=== PATIENT | male | born 1935 | race Caucasian/White ===

== ENCOUNTER 2017-03-01 16:33 | Inpatient (IN) | payer OTHER, MEDICARE ==
[~2017-03-01] VITALS: Ht 175.3 cm; Wt 90.7 kg
--- NOTE | ~2017-03-01 | EKG ---
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 <ELECTRONICALLY SIGNED> By: Andrew Interiano MD, [facility] 03/03/17 0815 1727 1727 Andrew Interiano MD, [facility] /EPI
[~2017-03-01 16:33] MED LIST: ACETAMINOPHEN325 M1 PO; ADULT LOW DOSE81 MG PO; AMARYL4 MG PO; APAP650 PO; ASPIR 8181 MG PO; ASPIRIN EC325 M1; ASPIRIN325; ASPIRIN325 PO; ATORVASTATIN CA40 MG PO; AVAPRO300 MG PO; AVELOX 400 MG400 M1 PO; AZOR 10-40 MG1 EACH PO; BACTROBAN CREAM30 GM; DEMADEX20 MG PO; DIABETA PO; DOXAZOSIN MESYLA4 MG PO; GLUCOPHAGE1000 MG PO; GLUCOSAMINE HC500 MG PO; K-DUR 20 MEQ T20 MEQ PO; KLOR-CON 10 ER10 MEQ PO; LANTUS; LANTUS SUBQ; LASIX 40 MG TAB40 M1 PO; LOPRESSOR PO; LOPRESSOR50 PO; LOSARTAN POTAS100 MG PO; METOPROLOL TARTRATE PO; NORCO 5-325 TA1 EACH PO; NORVASC10 MG PO; OMEPRAZOLE20 M2 PO; PEPCID20 MG PO; PLAVIX 75 MG TA75 M1 PO; PLAVIX 75 MG TA75 MG PO; PRAVASTATIN SOD20 MG PO; PREDNISONE 10 M10 M1 PO; PREDNISONE 10 M10 MG PO; PROAIR HFA8.5 GM INH; SYMBICORT160 MCG/4. INH; TOPROL XL50 MG PO; VENTOLIN HFA 1818 GM INH; ZOFRAN ODT4 MG PO
[2017-03-01 16:34] VITALS: BP 118/48
[2017-03-01 17:10] LABS: ABSOLUTE NEUTROPHILS 4.3 thou/uL (1.4-8.2); BASOPHILS 0.8 % (0.0-2.0); HEMATOCRIT 26.7 % (42.0-52.0); HEMOGLOBIN 9.1 gm/dL (14.0-18.0); LYMPHOCYTES 35.6 % (24.0-44.0); MCH 31.7 pg (26.0-34.0); MCHC 34.1 g/dL (28.0-37.0); MONOCYTES 9.4 % (1.0-8.0); PLATELET COUNT 137 thou/uL (150-400); POLYS 51.2 % (36.0-66.0); RBC 2.87 mil/uL (4.50-6.00); RDW 14.2 % (10.5-14.5); WBC 8.5 thou/uL (4.0-11.0)
[2017-03-01 17:20] LABS: URINE BILIRUBIN NEGATIVE (Negative); URINE BLOOD NEGATIVE (Negative); URINE COLOR YELLOW; URINE GLUCOSE-RANDOM* NEGATIVE (Negative); URINE KETONES NEGATIVE (Negative); URINE LEUKOCYTES-REFLEX 1+ (Negative); URINE PROTEIN (DIPSTICK) NEGATIVE (Negative); URINE UROBILINOGEN 0.2 E.U./dl (0.2-1.0)
[2017-03-01 17:24] LABS: MANUAL DIFF NO
[2017-03-01 17:25] LABS: CALCIUM 9.3 mg/dL (8.5-10.1); CREATININE 2.1 mg/dL (0.7-1.3); POTASSIUM 5.7 mmol/L (3.5-5.1)
[2017-03-01 17:34] LABS: CASTS None Seen /LPF (None Seen); CRYSTALS None Seen /LPF (None Seen); SQUAMOUS 0-3 Few /LPF (0-3); URINE RBC 0-2 Rare /HPF (0-2); URINE WBC-REFLEX 0-5 Rare /HPF (0-5)
[2017-03-01 17:37] LABS: ALBUMIN 3.5 g/dL (3.4-5.0); TOTAL BILIRUBIN 0.2 mg/dL (<0.1-1.0); TOTAL PROTEIN 6.9 g/dL (6.4-8.2)
[2017-03-01 17:56] LABS: PHOSPHORUS 4.6 mg/dL (2.5-4.9); TROPONIN-I < 0.04 ng/mL (<0.04-0.07)
[2017-03-01] MEDS ORDERED: DEMADEX20 MG PO (18:09)
[2017-03-01] MEDS ORDERED: CARDURA4 MG PO (18:09)
[2017-03-01] MEDS ORDERED: PLAVIX 75 MG TA75 MG PO (18:10)
[2017-03-01] MEDS ORDERED: LEVOTHYROXIN0.075 MG PO (18:11)
[2017-03-01] MEDS ORDERED: ATORVASTATIN CA40 MG PO (18:12)
[2017-03-01] MEDS ORDERED: METOPROLOL SUCC50 MG PO (18:12)
[2017-03-01] MEDS ORDERED: VITAMIN B COMP1 EACH PO (18:13)
[2017-03-01] MEDS ORDERED: PROTONIX40 M4 PO (18:13)
[2017-03-01] MEDS ORDERED: ASPIR 8181 MG PO (18:13)
[2017-03-01] MEDS ORDERED: LEVEMIR100 UNIT/1 (18:15)
[2017-03-01] MEDS ORDERED: SYMBICORT160 MCG/4. INH (18:15)
[2017-03-01] MEDS ORDERED: TYLENOL ARTHRI650 MG PO (18:16)
[2017-03-01 18:41] VITALS: BP 128/49; BP 145/45
[2017-03-01 19:16] LABS: TSH 33.637 uIU/mL (0.358-3.740)
[2017-03-01 20:22] LABS: FOLIC ACID 31.5 ng/mL (8.6-58.9)
[2017-03-02] VITALS: BP 120/58
[2017-03-02 04:00] VITALS: BP 135/47
[2017-03-02 05:10] LABS: GLYCOHEMOGLOBIN (HGB A1C) 7.3 % (4.8-5.6)
[2017-03-02 10:22] LABS: HEMATOCRIT 26.3 % (42.0-52.0); HEMOGLOBIN 8.8 gm/dL (14.0-18.0); MANUAL DIFF YES; MCH 31.9 pg (26.0-34.0); MCHC 33.5 g/dL (28.0-37.0); MCV 95.3 fL (80.0-100.0); PLATELET COUNT 126 thou/uL (150-400); RBC 2.76 mil/uL (4.50-6.00); RDW 14.4 % (10.5-14.5); WBC 6.5 thou/uL (4.0-11.0)
[2017-03-02 10:42] LABS: CALCIUM 8.8 mg/dL (8.5-10.1); CREATININE 2.2 mg/dL (0.7-1.3)
[2017-03-02 10:43] LABS: PLATELET ESTIMATE NORMAL; TOTAL CELL COUNT 100
[2017-03-02 10:44] LABS: POTASSIUM 6.3 mmol/L (3.5-5.1)
[2017-03-02 15:00] LABS: CALCIUM 8.6 mg/dL (8.5-10.1); CREATININE 2.3 mg/dL (0.7-1.3)
[2017-03-02 15:03] LABS: POTASSIUM 6.2 mmol/L (3.5-5.1)
[2017-03-02 19:40] VITALS: BP 135/46
[2017-03-03 03:14] LABS: GLYCOHEMOGLOBIN (HGB A1C) 7.5 % (4.8-5.6)
[2017-03-03 03:45] VITALS: BP 130/45
[2017-03-03 06:36] LABS: HEMATOCRIT 26.3 % (42.0-52.0); HEMOGLOBIN 8.9 gm/dL (14.0-18.0); MCH 32.1 pg (26.0-34.0); MCV 94.2 fL (80.0-100.0); RBC 2.79 mil/uL (4.50-6.00); RDW 14.2 % (10.5-14.5); WBC 5.9 thou/uL (4.0-11.0)
[2017-03-03 06:48] LABS: ALBUMIN 3.2 g/dL (3.4-5.0); CALCIUM 8.9 mg/dL (8.5-10.1); CREATININE 1.9 mg/dL (0.7-1.3)
[2017-03-03 06:52] LABS: POTASSIUM 6.9 mmol/L (3.5-5.1)
[2017-03-03 07:47] VITALS: BP 131/61
[2017-03-03 16:38] VITALS: BP 133/46
[2017-03-03 19:54] VITALS: BP 132/46
[2017-03-04 02:24] LABS: ABG SAMPLE TYPE ARTERIAL; BE(vivo) -1.4 mmol/L (-2 to +3); HCO3 22.6 mmol/L (22.0-26.0); LACTATE 1.27 mmol/L (0.5-2.0); O2(CT) 12.3 mL/dL (15.0-23.0); O2Hb 92.2 % (92.0-98.0); PCO2 35.3 mmHg (35.0-45.0); PO2 66.5 mmHg (80.0-100.0); pH 7.425 (7.360-7.450); sO2 93.8 % (92.0-98.0); tCO2 23.7 mmol/L (24.0-30.0)
[2017-03-04 02:25] LABS: STICK SITE R.RADIAL
[2017-03-04 02:32] LABS: HEMATOCRIT 25.8 % (42.0-52.0); HEMOGLOBIN 8.8 gm/dL (14.0-18.0); MCH 31.7 pg (26.0-34.0); MCV 93.1 fL (80.0-100.0); RBC 2.77 mil/uL (4.50-6.00); RDW 13.9 % (10.5-14.5); WBC 8.2 thou/uL (4.0-11.0)
[2017-03-04 02:47] LABS: ALBUMIN 3.1 g/dL (3.4-5.0); CALCIUM 8.6 mg/dL (8.5-10.1); CREATININE 1.8 mg/dL (0.7-1.3); PHOSPHORUS 4.2 mg/dL (2.5-4.9)
[2017-03-04 07:18] VITALS: BP 134/84
[2017-03-04 10:25] VITALS: BP 134/84
== END 2017-03-04 13:30 | disposition home or self-care (01) | DRG 682 ==
LOC: ER 16:33 → 4E 17:43 → EROBS 17:43 → 4E 18:43
PROVIDERS: Emergency Medicine; Family Medicine; Internal Medicine Endocrinology, Diabetes & Metabolism; Internal Medicine Nephrology; Nurse Practitioner; Physician Assistant
DX: N17.9 Acute kidney failure, unspecified (principal); G93.41 Metabolic encephalopathy; I13.0 Hypertensive heart and chronic kidney disease with heart failure and stage 1 through stage 4 chronic kidney disease, or unspecified chronic kidney disease; E87.5 Hyperkalemia; E11.649 Type 2 diabetes mellitus with hypoglycemia without coma; I25.10 Atherosclerotic heart disease of native coronary artery without angina pectoris; E78.5 Hyperlipidemia, unspecified; E11.22 Type 2 diabetes mellitus with diabetic chronic kidney disease; N18.9 Chronic kidney disease, unspecified; I50.9 Heart failure, unspecified; I65.29 Occlusion and stenosis of unspecified carotid artery; J44.9 Chronic obstructive pulmonary disease, unspecified; R00.1 Bradycardia, unspecified; E78.00 Pure hypercholesterolemia, unspecified; E11.65 Type 2 diabetes mellitus with hyperglycemia; R26.9 Unspecified abnormalities of gait and mobility; Z88.0 Allergy status to penicillin; Z95.1 Presence of aortocoronary bypass graft; Z79.899 Other long term (current) drug therapy; Z79.82 Long term (current) use of aspirin; Z82.49 Family history of ischemic heart disease and other diseases of the circulatory system; Z83.3 Family history of diabetes mellitus; Z87.891 Personal history of nicotine dependence; Z99.81 Dependence on supplemental oxygen
CPT/HCPCS: 10183

== ENCOUNTER → 2017-06-02 | Outpatient (CLI) | payer OTHER, MEDICARE ==
[~2017-06-02] MED LIST changes: +CARDURA4 MG PO; +LEVEMIR100 UNIT/1; +LEVOTHYROXIN0.075 MG PO; +METOPROLOL SUCC50 MG PO; +PROTONIX40 M4 PO; +TYLENOL ARTHRI650 MG PO; +VITAMIN B COMP1 EACH PO
== END ==
LOC: RAD 14:04
DX: J44.9 Chronic obstructive pulmonary disease, unspecified (principal)

== ENCOUNTER → 2017-11-03 | Outpatient (CLI) | payer OTHER, MEDICARE | LOC: HYPER 06:57 | DX: E11.622 Type 2 diabetes mellitus with other skin ulcer (principal); I87.2 Venous insufficiency (chronic) (peripheral); L97.811 Non-pressure chronic ulcer of other part of right lower leg limited to breakdown of skin; I25.810 Atherosclerosis of coronary artery bypass graft(s) without angina pectoris; R60.0 Localized edema; E11.22 Type 2 diabetes mellitus with diabetic chronic kidney disease; I12.9 Hypertensive chronic kidney disease with stage 1 through stage 4 chronic kidney disease, or unspecified chronic kidney disease; N18.9 Chronic kidney disease, unspecified; K21.9 Gastro-esophageal reflux disease without esophagitis; Z86.73 Personal history of transient ischemic attack (TIA), and cerebral infarction without residual deficits; Z95.1 Presence of aortocoronary bypass graft; Z87.891 Personal history of nicotine dependence ==

== ENCOUNTER → 2017-11-17 | Outpatient (CLI) | payer OTHER, MEDICARE | LOC: HYPER 06:56 | DX: E11.622 Type 2 diabetes mellitus with other skin ulcer (principal); L97.811 Non-pressure chronic ulcer of other part of right lower leg limited to breakdown of skin; R60.0 Localized edema; Z79.4 Long term (current) use of insulin; I25.10 Atherosclerotic heart disease of native coronary artery without angina pectoris; K21.9 Gastro-esophageal reflux disease without esophagitis; E11.22 Type 2 diabetes mellitus with diabetic chronic kidney disease; I12.9 Hypertensive chronic kidney disease with stage 1 through stage 4 chronic kidney disease, or unspecified chronic kidney disease; N18.9 Chronic kidney disease, unspecified; Z86.73 Personal history of transient ischemic attack (TIA), and cerebral infarction without residual deficits; Z95.1 Presence of aortocoronary bypass graft; Z87.891 Personal history of nicotine dependence ==

== ENCOUNTER → 2018-02-08 | Outpatient (CLI) | payer OTHER, MEDICARE | LOC: RAD 14:52 | DX: R06.02 Shortness of breath (principal); I70.0 Atherosclerosis of aorta; Z98.61 Coronary angioplasty status ==

== ENCOUNTER → 2018-02-16 | Outpatient (CLI) | payer OTHER, MEDICARE | LOC: CAT 06:05 | DX: J98.11 Atelectasis (principal); I70.0 Atherosclerosis of aorta; K80.20 Calculus of gallbladder without cholecystitis without obstruction ==

== ENCOUNTER → 2018-06-22 | Outpatient (CLI) | payer OTHER, MEDICARE | LOC: HYPER 06:28 | DX: E11.622 Type 2 diabetes mellitus with other skin ulcer (principal); L97.811 Non-pressure chronic ulcer of other part of right lower leg limited to breakdown of skin; E11.22 Type 2 diabetes mellitus with diabetic chronic kidney disease; I12.9 Hypertensive chronic kidney disease with stage 1 through stage 4 chronic kidney disease, or unspecified chronic kidney disease; N18.9 Chronic kidney disease, unspecified; E78.00 Pure hypercholesterolemia, unspecified; I25.810 Atherosclerosis of coronary artery bypass graft(s) without angina pectoris; I87.2 Venous insufficiency (chronic) (peripheral); I65.23 Occlusion and stenosis of bilateral carotid arteries; I27.20 Pulmonary hypertension, unspecified; G47.33 Obstructive sleep apnea (adult) (pediatric); J44.9 Chronic obstructive pulmonary disease, unspecified; K21.9 Gastro-esophageal reflux disease without esophagitis; F41.9 Anxiety disorder, unspecified; F17.290 Nicotine dependence, other tobacco product, uncomplicated; Z79.4 Long term (current) use of insulin; Z95.1 Presence of aortocoronary bypass graft; Z86.73 Personal history of transient ischemic attack (TIA), and cerebral infarction without residual deficits ==

== ENCOUNTER → 2018-07-13 | Outpatient (CLI) | payer OTHER, MEDICARE | LOC: HYPER 07:01 | DX: E11.622 Type 2 diabetes mellitus with other skin ulcer (principal); L97.811 Non-pressure chronic ulcer of other part of right lower leg limited to breakdown of skin; E11.22 Type 2 diabetes mellitus with diabetic chronic kidney disease; I12.9 Hypertensive chronic kidney disease with stage 1 through stage 4 chronic kidney disease, or unspecified chronic kidney disease; N18.9 Chronic kidney disease, unspecified; E78.00 Pure hypercholesterolemia, unspecified; G47.33 Obstructive sleep apnea (adult) (pediatric); I25.810 Atherosclerosis of coronary artery bypass graft(s) without angina pectoris; I87.2 Venous insufficiency (chronic) (peripheral); I65.23 Occlusion and stenosis of bilateral carotid arteries; I27.20 Pulmonary hypertension, unspecified; K21.9 Gastro-esophageal reflux disease without esophagitis; J44.9 Chronic obstructive pulmonary disease, unspecified; F41.9 Anxiety disorder, unspecified; F17.290 Nicotine dependence, other tobacco product, uncomplicated; Z95.1 Presence of aortocoronary bypass graft; Z86.73 Personal history of transient ischemic attack (TIA), and cerebral infarction without residual deficits; Z79.4 Long term (current) use of insulin ==

== ENCOUNTER 2018-10-19 14:20 | Inpatient (IN) | payer OTHER, MEDICARE ==
[2018-10-19] VITALS (17 sets, daily range): BP systolic 112–135; BP diastolic 35–72
[~2018-10-19] VITALS: Ht 175.3 cm; Wt 96.7 kg
--- NOTE | ~2018-10-19 | EKG ---
[address] [address] ELECTROCARDIOGRAM REPORT Name: MORGAN ZAIDI Room #: 204-P ADM IN M.R.#: [id number] ������������������ Admission: 10/19/18 ������������������ Attend Phys: Jair Santos MD Discharge: ������������������ Date of : 39 Report #: [id number] ����������������������������������������������������������������� [id number] THIS REPORT FOR: //name// [facility] Test Date: 2018-10-26 Test Time: 08:37:13 Pat Name: MORGAN ZAIDI Department: Room: 204 P Gender: M Shank Pinner: SRIKANTH : 1935 Requested By: Malka Clemons Order Number: [id number] MD: Measurements Intervals [place] Rate: 71 P: [place]: QRS: 41 QRSD: 90 T: 216 QT: 378 QTc: 411 Interpretive Statements Atrial fibrillation Multiple ventricular premature complexes Probable LVH with secondary repol abnrm Compared to ECG 10/25/2018 11:16:33 Ventricular premature complex(es) now present [email or web address] ��������������������������������������������� ���������������������������������������� By: ��������������������������������������������� 0837 0837 Epiphany EpiphanyMD /EPI
--- NOTE | ~2018-10-19 | HC ---
[facility] [place] [address] CONSULTATION Name: DYANMORGAN RAMON Room #: 236-P ADM IN M.R.#: [id number] Admission: 10/19/18 ������������������ Attend Phys: Jiar Santos MD Discharge: ������������������ Date of : 37 Report #: [id number] THIS REPORT FOR: //name// CC: Jair Whittaker CARDIOLOGY CONSULTATION REASON FOR CONSULTATION: Shortness of breath and elevated troponin. HISTORY OF PRESENT ILLNESS: The patient is an 83-year-old male with a history of coronary artery disease, status post CABG; carotid artery disease; oxygen dependent COPD. He presents after several days of worsening shortness of breath. He had some chest pain as well yesterday. He denies any PND or orthopnea. He did have some diarrhea and some blood in his stools per the . REVIEW OF SYSTEMS: GENERAL: No fevers or chills. HEENT: No blurred vision. CARDIOVASCULAR: As above. PULMONARY: No productive cough. GASTROINTESTINAL: No nausea or vomiting. GENITOURINARY: No dysuria. MUSCULOSKELETAL: No myalgias or arthralgias. ENDOCRINE: No heat or cold intolerance. PAST MEDICAL HISTORY: 1. Coronary artery disease, status post coronary artery bypass graft. 2. Hypertension. 3. Hyperlipidemia. 4. Carotid artery disease with a 60-70% right-sided stenosis. 5. Diabetes mellitus. 6. Chronic obstructive pulmonary disease, on oxygen. 7. Nuclear stress test in 10/2017 with no evidence of ischemia. 8. Echocardiogram 10/2017, EF of 45%, mild MR. 9. Known first-degree AV block. SOCIAL HISTORY: Does not smoke. FAMILY HISTORY: Noncontributory. ALLERGIES: INCLUDE PENICILLIN. MEDICATIONS: From his last visit with Dr. Meyer included albuterol, aspirin, atorvastatin, budesonide, Plavix, doxazosin, insulin, Synthroid, metoprolol, pantoprazole, and Spiriva. [facility] [address] [place] [address] CONSULTATION Name: MORGAN ZAIDI Room #: 236-P [facility] IN [facility].#: [id number] Admission: 10/19/18 ������������������ Attend Phys: Jair Santos MD Discharge: ������������������ Date of : 39 Report #: [id number] PHYSICAL EXAMINATION: VITAL SIGNS: Temperature is 36.8, pulse 61, respiration 24, blood pressure 116/50, sats 99%. GENERAL: He is an elderly, ill-appearing male. HEENT: Sclerae are anicteric. Oropharynx is clear. NECK: Supple, with no thyromegaly. HEART: Regular rate and rhythm with no murmurs, rubs, gallops. LUNGS: Reveal some mild expiratory wheezes. ABDOMEN: Soft, nontender, nondistended. EXTREMITIES: No clubbing or cyanosis. He does have what appears to be possible cellulitis of the right leg and skin breakdown on the left leg. NEUROLOGIC: Cranial nerves 2-12 are intact. LABORATORY DATA: His initial EKG shows possible atrial fibrillation and a repeat EKG shows sinus rhythm with a long first-degree AV block. Both EKGs show lateral T-wave inversions suggestive of ischemic changes. LABORATORY DATA: Include white count 5.3, hemoglobin 6.8, platelets 116, pH 7.4, pCO2 of 38, pO2 102. Lactate 2.0. Sodium 144, potassium 4.5, creatinine 2.8. Troponin 0.08. ProBNP 13,935. His chest x-ray shows a large cardiac silhouette with sternal wires and no evidence of pulmonary edema nor evidence of pneumonia on my inspection. ASSESSMENT: 1. Elevated troponin. 2. Anemia. 3. Acute renal failure. 4. Coronary artery disease. 5. Ischemic cardiomyopathy. 6. Possible atrial fibrillation. PLAN: In summary, the patient is an 83-year-old male with history of coronary artery disease, presenting with worsening shortness of breath, which is likely due to his new onset anemia. This will need to be further evaluated. I recommend stopping aspirin and Plavix at this time. I believe his troponin is likely due to some subendocardial ischemia due to the anemia. Recommend that we transfuse the patient. We will need to closely monitor his cardiopulmonary status to ensure he does not become volume overloaded and may need some Lasix post-transfusion. I would recommend an echocardiogram in the morning. His EKG was hard to really interpret, it is possible there is some atrial fibrillation, we can monitor on telemetry for recurrence, but obviously anticoagulation is not [address] [address] CONSULTATION Name: MORGAN ZAIDI Room #: 236-P ADM IN M.R.#: [id number] Admission: 10/19/18 ������������������ Attend Phys: Jair Santos MD Discharge: ������������������ Date of : 37 Report #: [id number] an option at this point. He is currently in sinus rhythm. We will continue to follow. ��������������������������������������������� ���������������������������������������� By: ��������������������������������������������� 1711 0019 Sedrick Lujan MD /srini
--- NOTE | ~2018-10-19 | P ---
[facility] [place] [address] PROCEDURE REPORT Name: MORGAN ZAIDI RAMON Room #: 204-P ADM IN M.R.#: [id number] Admission: 10/19/18 ������������������ Attend Phys: Jair Santos MD Discharge: ������������������ Date of : 37 Report #: [id number] THIS REPORT FOR: //name// CC: Jair Whittaker MD DATE OF SERVICE: 10/19/[address] Aneesh Whittaker and Dr. Jair Santos. INDICATION FOR PROCEDURE: Evaluate for sources of heme-positive stools and anemia. DESCRIPTION OF PROCEDURE: Informed consent for this procedure was obtained prior to the administration of any medication. The risks which include but are not limited to bleeding, perforation, infection, complications of sedation and the possibility I could miss something were explained to the patient and he has indicated his consent by signing. Anesthesia kindly provided deep sedation for this procedure and EGD that preceded it. Digital rectal exam was performed and no abnormalities were palpated other than a large external hemorrhoid. Then, the Olympus colonoscope was introduced through the anal sphincter and advanced under direct visualization to the terminal ileum. Findings are noted on withdrawal of the scope. The terminal ileal mucosa appears normal. The cecum is severely ulcerated, friable and very erythematous and biopsies were obtained from an ulceration that is near the appendiceal orifice. Other biopsies x 2 were obtained from the cecum itself to evaluate the irregular erythematous, edematous, friable mucosa. The proximal ascending colon has a similar appearance to the cecum and there was a sharp line of demarcation where it begins and ends in the mid to proximal ascending colon. Biopsies were obtained at multiple sites in the ascending colon for histopathology as well. Good hemostasis was noted after all of these biopsies. The distal ascending colon appears normal. At the hepatic flexure, there is a single uncomplicated diverticulum. It is nonbleeding. Near the hepatic flexure in the proximal transverse colon, there was a nonbleeding visible vessel with surrounding erythema. This was initially touched with BICAP and it began to bleed profusely then it was successfully bicapped and obliterated with the BICAP probe and washed with a water jet and found to be stable. In nearly the same area, a small 5 mm polyp was removed in toto with a hot snare and sent to pathology lab. Good hemostasis was noted after that polypectomy that was in the proximal transverse colon near the hepatic flexure. The mid section of the transverse colon appears normal. The distal transverse colon at the level of [address] [address] PROCEDURE REPORT Name: DYANMORGAN Room #: 204-P [facility] IN M.R.#: [id number] Admission: 10/19/18 ������������������ Attend Phys: Jair Santos MD Discharge: ������������������ Date of : 37 Report #: [id number] the glottic flexure showed a second visible vessel with some surrounding erythema that was also bicapped and ablated successfully. The remaining splenic flexure mucosa appears normal. Descending colon, the proximal descending colon appears normal at 45 cm. In the distal descending colon, there is a 5 mm sessile polyp that was removed in toto with a hot snare and sent to pathology lab. Good hemostasis was noted after that polypectomy. At 40 cm at the descending sigmoid junction, there were 3 small polyps, all 5 mm or less in size. All three of them were removed in toto with a hot snare, two of them were recovered and sent to pathology lab and the third one was vaporized with the hot snare. Good hemostasis was noted after all polypectomies in this area. The remaining sigmoid colon proximally was normal at 25 cm. In the sigmoid colon, there was a 5 mm polyp that was removed in toto with a hot snare and sent to pathology lab. Good hemostasis was noted after that polypectomy. In the mid to distal rectum, there was a 1.5 cm pedunculated polyp that was removed in 2 pieces with a hot snare and sent to pathology lab. Good hemostasis was noted after that polypectomy. Retroflex view did not reveal any internal hemorrhoids or any other abnormalities. The scope was withdrawn. The patient went to the recovery area in stable condition. He tolerated the procedure well. Good hemostasis was noted after all polypectomies and biopsies. The patient tolerated the procedure well. IMPRESSION: 1. Ulcerated friable irregular mucosa of the cecum and proximal ascending colon, biopsied as above. 2. Single uncomplicated diverticulum at the hepatic flexure. 3. Visible vessel in the proximal transverse colon near the hepatic flexure treated and obliterated with a BICAP. 4. Colon polyp in the proximal transverse colon and hepatic flexure, removed with a snare and sent to pathology lab. 5. Second visible vessel at the splenic flexure ablated with the BICAP. 6. Colon polyp at 45 cm, removed and sent to pathology lab. 7. Three 5 mm or less polyps at 40 cm cynthia were removed or ablated. Two were recovered and sent to pathology Lab. One was completely vaporized in the removal process. 8. At 25 cm in the sigmoid colon, a 5-mm polyp was removed with a hot snare as above and sent to pathology lab. 9. Rectal polyp, size 1.5 cm, removed with a hot snare. There was a pedunculated polyp sent to pathology lab. 10. External hemorrhoids. RECOMMENDATIONS: To await the path report. I suspect that it is possible that ischemia may be the etiology of the segment of ulcerated colon involving the sigmoid and proximal ascending colon. [facility] [address] [place] [address] PROCEDURE REPORT Name: MORGAN ZAIDI Room #: 204-P ADM IN M.R.#: [id number] Admission: 10/19/18 ������������������ Attend Phys: Jari Santos MD Discharge: ������������������ Date of : 39 Report #: [id number] Thank you very much once again for allowing me to participate in his care. ��������������������������������������������� ���������������������������������������� By: ��������������������������������������������� 2214 0153 Aliza Mendez DO /nt
[~2018-10-19 14:20] MED LIST changes: -LEVEMIR100 UNIT/1; +LEVEMIR100 UNIT/1 SUBQ; -LEVOTHYROXIN0.075 MG PO; +LEVOXYL100 MCG PO; +LOPRESSOR25 PO; -METOPROLOL SUCC50 MG PO
[2018-10-19 14:36] LABS: ABSOLUTE NEUTROPHILS 3.2 thou/uL (1.4-8.2); BASOPHILS 0.7 % (0.0-2.0); EOSINOPHILS 1.2 % (0.0-3.0); HEMATOCRIT 22.1 % (42.0-52.0); HEMOGLOBIN 7.1 gm/dL (14.0-18.0); LYMPHOCYTES 30.2 % (24.0-44.0); MCH 27.5 pg (26.0-34.0); MCHC 32.3 g/dL (28.0-37.0); MCV 85.1 fL (80.0-100.0); MONOCYTES 9.8 % (1.0-8.0); PLATELET COUNT 121 thou/uL (150-400); POLYS 58.1 % (36.0-66.0); RBC 2.59 mil/uL (4.50-6.00); RDW 16.5 % (10.5-14.5); WBC 5.5 thou/uL (4.0-11.0)
[2018-10-19 14:44] LABS: CALCIUM 8.7 mg/dL (8.5-10.1); CREATININE 2.8 mg/dL (0.7-1.3); POTASSIUM 4.5 mmol/L (3.5-5.1)
[2018-10-19 14:53] LABS: TROPONIN-I 0.08 ng/mL (<0.06)
[2018-10-19 15:00] LABS: BE(vivo) -1.3 mmol/L (-2 to +3); HCO3 23.3 mmol/L (22.0-26.0); PCO2 38.3 mmHg (35.0-45.0); PO2 102.6 mmHg (80.0-100.0); pH 7.402 (7.360-7.450); sO2 97.7 % (92.0-98.0)
--- NOTE | 2018-10-19 15:18 | EKG ---
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 Tender: WG : 1935 Requested By: Paul Thao Order Number: [id number] MD: Andrew Interiano Measurements Intervals [place] Rate: 66 P: [place]: QRS: 66 QRSD: 89 T: 236 QT: 385 QTc: 404 Interpretive Statements Atrial fibrillation Ventricular premature complex ST and T wave abnormality, consider ischemia Compared to ECG 03/01/2017 17:27:23 ST and T wave abnormality is now present atrial fibrillation has replaced sinus rhythm Electronically Signed On 10-19-2018 15:18:12 AIRCRAFT QUALITY CONTROL INSPECTOR by Andrew Interiano [email or web address] ��������������������������������������������� <ELECTRONICALLY SIGNED> ���������������������������������������� By: Andrew Interiano MD, [facility] ��������������������������������������������� 10/19/18 1518 1420 1420 Andrew Interiano MD, [facility] /EPI
[2018-10-19] MEDS ORDERED: NOVOLOG100 UNIT/1 SUBQ (15:49)
[2018-10-19] MEDS ORDERED: VITAMIN D1000 UNI1 PO (15:50)
[2018-10-19] MEDS ORDERED: VITAMINC500 PO (15:50)
[2018-10-19] MEDS ORDERED: PROAIR HFA8.5 GM INH (15:50)
[2018-10-19] MEDS ORDERED: SYSTANE GEL EYE10 ML OPHTHALMIC (15:51)
[2018-10-19 15:58] LABS: RBC 2.43 mil/uL (4.50-6.00)
[2018-10-19 15:59] LABS: HEMATOCRIT 20.6 % (42.0-52.0); HEMOGLOBIN 6.8 gm/dL (14.0-18.0); MCH 27.9 pg (26.0-34.0); MCHC 32.9 g/dL (28.0-37.0); MCV 84.8 fL (80.0-100.0); RDW 16.3 % (10.5-14.5); WBC 5.3 thou/uL (4.0-11.0)
[2018-10-19 16:31] LABS: % SATURATION 10 % (20-39); IRON 29 ug/dL (65-175); TIBC 286 ug/dL (250-450)
[2018-10-19 18:56] LABS: INR 1.1; PROTIME 11.5 Seconds (9.3-11.4)
[2018-10-19 20:27] LABS: BE(vivo) -1.9 mmol/L (-2 to +3); HCO3 22.2 mmol/L (22.0-26.0); PCO2 34.4 mmHg (35.0-45.0); PO2 204.6 mmHg (80.0-100.0); pH 7.427 (7.360-7.450); sO2 99.4 % (92.0-98.0)
--- NOTE | 2018-10-19 21:30 | NUR ---
Pt is being tx from ICU for close observation due to increased SOB and near syncopal episode x 3 tonight per report. He is anxious and currently on BIPAP. He report he got enough air when I assessed. SR/SB with 1 degree AVB with multiple PACs notes. Denies of any CP or Chest discomfort. ABG and CXR are unremarkable. is awared of those results. Assessment is completed. Updates pt's and sons regarding of treatment and plans. Will continue to observe him closely.
--- NOTE | 2018-10-19 21:30 | NUR ---
Pt tx from CCU for close observation due to loss consciousness x3 and trouble breathing per CCU nurse report. He is awakes, little anxious but denies of any CP or Chest discomfort. He is currently on BIPAP and report to me that he got enough air.ABG look good and is awared of the result. SR /SB with multiple PACs notes. His heart rate is as low 40's but non sustain. He denies of any symptomatic bradycardia. Assessment completed. Care plans are initiated, continue working toward goals.
[2018-10-19 21:55] LABS: HEMATOCRIT 22.5 % (42.0-52.0); HEMOGLOBIN 7.4 gm/dL (14.0-18.0)
[2018-10-20] VITALS (24 sets, daily range): BP systolic 95–132; BP diastolic 35–62
--- NOTE | 2018-10-20 01:58 | NUR ---
Pt is notes to have HR as low as 33 but nonsustain. He denies of any symptoms. No s/sx of hypoperfusion. No changes of cardiac rythms. Continue to observe any changes.
--- NOTE | 2018-10-20 02:00 | NUR ---
Pt is notes to have asymptomatic bradycardia. His HR as low as 33 but nonsustain. No changes of neurological. BP remains stable. Continue to monitor any changes.
--- NOTE | 2018-10-20 02:20 | NUR ---
ASSUME CAR E1900. PT/VITALS STABLE. DENIES PAIN/ ALERT AND ORIENTED X4. AWAKE, TALKING AND LAUGHING. NO DISTRESS NOTED. 1999 PT COMPLAINS OF BEING SOA ON 4LNC. O2 SAT AT 99% AND VITALS STABLE. DIALSTOLIC LOW BUT TRENDING NORMALLY BEFORE. DYSPNEA SEEMS TO BE RELATED TO ANXIETY. ENCOURAGED PT TO RELAX AND TAKE SLOW DEEP BREATHS TO NO AVAIL. NOTED ABOUT 3 EPISODES OF PATIENT PASSING OUT FOR ABOUT 10 SECONDS EACT TIME AND WOULD TAKE THE NURSE AND FAMILY TO SHAKE HIM AND CALL OUT BEFORE HE OPENS HIS EYES. PT STATES HIS NAME AFTER WAKING UP AND TAKES A COUPLE OF SECONDS TO REORIENT HIMSELF. TWO SYNCOPAL EPISODES NOTED BEFORE BIPAP WAS PLACED AND ONE AFTER BIPAP PLACEMENT, AND THEN UNTIL TRANSFER AT ABOUT 2100, NO SYNCOPE NOTED. NIGHT MEDS GIVEN. METOPROLOL HELD BECAUSE HR IN 50s. ASSESSMETN CHARTED. PLAN IS DISCHARGE PT TO ICU. TRANSFERRED TO ICU IN STABLE CONDITION
--- NOTE | 2018-10-20 04:20 | NUR ---
Pt became very agitate and yelling out for water. When I informed him about NPO and possible EGD. He became even more agitated. Screaming at me " I wanted some water ,I wanted some water and no one will put any needle in my stomach" Pt's and I tried to calm him downw/o any success. He insisted that he wanted some water and doesn't want any scope. He was given ativan IV x1 for agitation. Will continue to observe his behaviors.
[2018-10-20 05:23] LABS: BE(vivo) -5.4 mmol/L (-2 to +3); HCO3 19.7 mmol/L (22.0-26.0); PCO2 36.5 mmHg (35.0-45.0); sO2 97.6 % (92.0-98.0)
[2018-10-20] MEDS ORDERED: IRON325 PO (05:44)
[2018-10-20 05:54] LABS: HEMATOCRIT 22.2 % (42.0-52.0); HEMOGLOBIN 7.1 gm/dL (14.0-18.0); MCH 27.4 pg (26.0-34.0); MCHC 32.1 g/dL (28.0-37.0); MCV 85.3 fL (80.0-100.0); PLATELET COUNT 114 thou/uL (150-400); RDW 16.4 % (10.5-14.5); WBC 2.9 thou/uL (4.0-11.0)
[2018-10-20 06:13] LABS: ALBUMIN 2.4 g/dL (3.4-5.0); CALCIUM 8.4 mg/dL (8.5-10.1); CREATININE 2.7 mg/dL (0.7-1.3); MAGNESIUM 1.7 mg/dL (1.8-2.4); POTASSIUM 4.8 mmol/L (3.5-5.1); TOTAL BILIRUBIN 0.3 mg/dL (<0.1-1.0); TOTAL PROTEIN 5.9 g/dL (6.4-8.2); TROPONIN-I 0.08 ng/mL (<0.06)
--- NOTE | 2018-10-20 06:30 | NUR ---
Pt remains calm after Ativan IVP. He is still insisting not to have scope done. will notify GI lab.
[2018-10-20 06:45] LABS: ABSOLUTE NEUTROPHILS 2.6 thou/uL (1.4-8.2); ANISOCYTOSIS 1+; PLATELET ESTIMATE DECREASED; POLYCHROMASIA 1+
--- NOTE | 2018-10-20 10:24 | 2DMMODE ---
[facility] [place] [address] 2 D/M-MODE ECHOCARDIOGRAM Name: MORGAN ZAIDI RAMON Room #: 236-P ADM IN M.R.#: [id number] ������������� Admission: 10/19/18 ������������� Attend Phys: Jair Santos MD Discharge: ��� ������������� ��� Date of : 39 Date of Service: 10/20/18 1024 �� Report #: [id number] �������� ��������������������������������������������[id number] THIS REPORT FOR: //name// APPROVED REPORT Study performed: 10/20/2018 08:29:50 EXAM: Comprehensive 2D, Doppler, and color-flow Echocardiogram Patient Location: ICU Room #: [facility] Status: routine BSA: 2.12 HR: 67 bpm BP: 111/35 mmHg Other Information Study Quality: Adequate Indications COPD Diabetes Dyspnea CAD Cardiomyopathy Hypertension/HDD 2D Dimensions RVDd: 41.02 mm IVSd: 15.99 (7-11mm) LVOT Diam: 23.31 (18-24mm) LVDd: 50.10 mm PWd: 14.77 (7-11mm) Ascending Ao: 28.51 (22-36mm) LVDs: 40.17 (25-40mm) Left Atrium: 0.00 (27-40mm) Aortic Root: 29.67 mm IVC: 28.00 mm Volumes Left Atrial Volume (Systole) Single Plane 4CH: 83.38 mL Single Plane 2CH: 83.08 mL LA ESV Index: 47.00 mL/m2 Aortic Valve AoV Peak Allen.: 2.64 m/s AO Peak Gr.: 27.93 mmHg LVOT Max P.22 mmHg AO Mean Gr.: 17.35 mmHg LVOT Mean P.49 mmHg AO V2 Mean: 1.96 m/s LVOT Max V: 1.03 m/s [facility] [place] [address] 2 D/M-MODE ECHOCARDIOGRAM Name: MORGAN ZAIDI RAMON Room #: 236-P [facility] IN .R.#: [id number] ������������� Admission: 10/19/18 ������������� Attend Phys: Jair Santos MD Discharge: ��� ������������� ��� Date of : 39 Date of Service: 10/20/18 1024 �� Report #: [id number] �������� ��������������������������������������������[id number] AO V2 VTI: 77.65 cm LVOT Mean V: 0.74 m/s GILL (VTI): 1.54 cm2 LVOT V1 VTI: 28.02 cm GILL Vmax: 1.66 cm2 SV (LVOT): 119.49 mL Pulmonary Valve PV Peak Allen.: 1.11 m/s PV Peak Gr.: 4.89 mmHg Tricuspid Valve TR Peak Allen.: 3.28 m/s TR Peak Gr.: 43.23 mmHg PA Pressure: 53.00 mmHg Left Ventricle The left ventricle is normal size. Moderate concentric left ventricular hypertrophy. Left ventricular systolic function is mildly decreased. LVEF is 45-50%. The left ventricular diastolic function is abnormal. Right Ventricle Right ventricle is at the upper limits of normal. The right ventricular systolic function is normal. Atria Left atrium is dilated. Right atrium is dilated. Aortic Valve The aortic valve is normal in structure. Aortic valve is calcified. No aortic regurgitation is present. Mild aortic stenosis. Mitral Valve The mitral valve is normal in structure. Mild mitral regurgitation. No evidence of mitral valve stenosis. Tricuspid Valve The tricuspid valve is normal in structure. There is mild tricuspid regurgitation. Estimated PAP 53 mmHg. There is moderate pulmonary hypertension. Pulmonic Valve The pulmonary valve is normal in structure. Mild pulmonic regurgitation. Great Vessels The aortic root is normal in size. IVC is dilated and collapses <50% with inspiration. [facility] [address] [place] [address] 2 D/M-MODE ECHOCARDIOGRAM Name: DYANMORGAN RAMON Room #: 236-P [facility] IN M.R.#: [id number] ������������� Admission: 10/19/18 ������������� Attend Phys: Jair Santos MD Discharge: ��� ������������� ��� Date of : 39 Date of Service: 10/20/18 [facility] �� Report #: [id number] �������� ��������������������������������������������[id number] Pericardium There is no pericardial effusion. <Conclusion> The left ventricle is normal size. LVEF is 45-50%. Left atrium is dilated. Right atrium is dilated. The aortic valve is normal in structure. Aortic valve is calcified. Mild aortic stenosis. The mitral valve is normal in structure. Mild mitral regurgitation. The tricuspid valve is normal in structure. There is mild tricuspid regurgitation. Estimated PAP 53 mmHg. There is moderate pulmonary hypertension. The pulmonary valve is normal in structure. Mild pulmonic regurgitation. There is no pericardial effusion. ��������������������������������������������� <ELECTRONICALLY SIGNED> ���������������������������������������� By: Mele Dennis MD ��������������������������������������������� 10/20/18 1024 1024 1024 Mele Dennis MD /INF
--- NOTE | 2018-10-20 11:03 | EKG ---
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[place] : 1935 Requested By: Paul Thao Order Number: [id number] MD: Sedrick Lujan Measurements Intervals [place] Rate: 56 P: 0 OR: 322 QRS: 63 QRSD: 89 T: 233 QT: 403 QTc: 389 Interpretive Statements Sinus rhythm Multiple premature complexes, vent & supraven Prolonged OR interval Repol abnrm, severe global ischemia (LM/MVD) Compared to ECG 10/19/2018 14:20:59 Electronically Signed On 10-20-2018 11:03:30 TECHNICAL FELLOW by Sedrick Lujan [email or web address] ��������������������������������������������� <ELECTRONICALLY SIGNED> ���������������������������������������� By: Sedrick Lujan MD ��������������������������������������������� 10/20/18 1103 1647 1647 Sedrick Lujan MD /EPI
--- NOTE | 2018-10-20 11:04 | EKG ---
[address] [address] ELECTROCARDIOGRAM REPORT Name: MORGAN ZAIDI Room #: 236-P ADM IN M.R.#: [id number] ������������������ Admission: 10/19/18 ������������������ Attend Phys: Jair Santos MD Discharge: ������������������ Date of : 37 Report #: [id number] ����������������������������������������������������������������� [id number] THIS REPORT FOR: //name// [facility] Test Date: 2018-10-19 Test Time: 21:47:21 Pat Name: MORGAN ZAIDI Department: Room: 236 Gender: M E/M Engineer: Wilma METZGER : 1935 Requested By: Jani Chan Order Number: [id number] MD: Sedrick Lujan Measurements Intervals [place] Rate: 56 P: MS: QRS: 25 QRSD: 96 T: 177 QT: 441 QTc: 426 Interpretive Statements Sinus rhythm, first degree AB block Frequent PAC and PVCs Abnormal T, probable ischemia, lateral leads Compared to ECG 10/19/2018 14:20:59 Electronically Signed On 10-20-2018 11:04:17 MAIL CENSOR by Sedrick Lujan [email or web address] ��������������������������������������������� <ELECTRONICALLY SIGNED> ���������������������������������������� By: Sedrick Lujan MD ��������������������������������������������� 10/20/18 1104 Sedrick Lujan MD /EPI
--- NOTE | 2018-10-20 11:05 | EKG ---
[address] [place] [address] ELECTROCARDIOGRAM REPORT Name: MORGAN ZAIDI Room #: 236-P ADM IN M.R.#: [id number] ������������������ Admission: 10/19/18 ������������������ Attend Phys: Jair Santos MD Discharge: ������������������ Date of : 37 Report #: [id number] ����������������������������������������������������������������� [id number] THIS REPORT FOR: //name// [facility] Test Date: 2018-10-20 Test Time: 07:33:01 Pat Name: MORGAN ZAIDI Department: Room: 236 P Gender: M Kinesiology Internship: SRIKANTH : 1935 Requested By: Jair Santos Order Number: [id number] MD: Sedrick Lujan Measurements Intervals [place] Rate: 62 P: CA: QRS: 39 QRSD: 95 T: 182 QT: 405 QTc: 412 Interpretive Statements Sinus with first degree AV block with frequent PACs and PVCs Repol abnrm, with lateral ischemia. Compared to ECG 10/19/2018 14:20:59 Electronically Signed On 10-20-2018 11:05:19 FIRST BREAKER FEEDER by Sedrick Lujan [email or web address] ��������������������������������������������� <ELECTRONICALLY SIGNED> ���������������������������������������� By: Sedrick Lujan MD ��������������������������������������������� 10/20/18 1105 0733 Sedrick Lujan MD /SHAWNA
--- NOTE | 2018-10-20 11:56 | NUR ---
INITIAL ASSESSMENT: Received consult for eventual discharge planning. SW reviewed chart and spoke with nursing and attending physician. Pt was admitted from home due to dyspnea/elevated troponin. Pt with hx of COPD. Pt is scheduled to have an EGD today. SW met with pt at bedside. Introduced role of SW. Pt is alert/orientated x 4. Pt reports he lives at home with his . Prior to admission, pt was using a rollator walker. Pt is normally on 3-4L of O2. Home O2 is provided by [facility]. Pt states he also has a cpap, but unsure of DME provider. Pt has used [facility] in the past and has been to [facility]. Pt's PCP is Dr. Aneesh Whittaker. Therapies ordered to evaluate pt for discharge needs. SW is following to assist as needed with discharge planning.
--- NOTE | 2018-10-20 12:36 | HC ---
[facility] [place] [address] CONSULTATION Name: DYANMORGAN Room #: 236-P ADM IN M.R.#: [id number] Admission: 10/19/18 ������������������ Attend Phys: Jair Santos MD Discharge: ������������������ Date of : 37 Report #: [id number] THIS REPORT FOR: //name// CC: Jair Whittaker REFERRING PHYSICIAN: Dr. Santos. REASON FOR REFERRAL: Acute respiratory distress. HISTORY OF PRESENT ILLNESS: The patient is an 83-year-old white male with COPD, sleep apnea, admitted with dyspnea. A pulmonary consultation was requested. The patient has been followed in Pulmonary Department for a number of years. He was previously seen by Dr. Quesada. He has COPD, with severe impairment. Baseline FEV1 has measured 1.15 liters, 37% predicted. He is oxygen-dependent at 2 liters of O2. He has sleep apnea and he is on BiPAP, currently utilizing BiPAP 10/5 cm H2O. Previous echocardiogram showed pulmonary hypertension. He is also followed by Cardiology for coronary artery disease. According to the , for the past month or so, he has been using BiPAP up to 16-18 hours a day due to dyspnea. He has been complaining of dyspnea more lately. He was recently hospitalized at [facility]. When he was discharged, his noted that he was quite weak, unable to walk. On the morning prior to presentation, the patient had a large amount of diarrhea. Following that, he had complained of increasing dyspnea. No evidence of bright red blood. He was admitted earlier today. Since admission, the patient again complained of his dyspnea being worse, needing BiPAP. He was also transfused 1 unit of packed RBCs. His hemoglobin on admission was 7.1. Otherwise, denies any chest pain, abdominal pain, nausea, vomiting. PAST MEDICAL HISTORY: Notable for COPD; severe impairment, sleep apnea, on BiPAP, oxygen dependent at 2 liters; coronary artery disease, status post coronary artery bypass surgery; diabetes mellitus type 2; chronic kidney disease; gastroesophageal reflux disease, hypothyroidism. PAST SURGICAL HISTORY: As mentioned above, prior eye surgery, left hip surgery. ALLERGIES: GABAPENTIN, which cause hallucination. PENICILLIN causes rash. HOME MEDICATIONS: List reviewed. This includes Lipitor, Protonix, aspirin, Levemir, Symbicort, Demadex, Cardura, Synthroid, levothyroxine, metoprolol, vitamin B supplements. [facility] [address] [place] [address] CONSULTATION Name: DYANMORGAN Room #: 236-P [facility] IN .Idalia.#: [id number] Admission: 10/19/18 ������������������ Attend Phys: Jair Snatos MD Discharge: ������������������ Date of : 37 Report #: [id number] FAMILY HISTORY: Notable for longevity in the mother who at the age of 95. Father of 79, reasons unspecified. SOCIAL HISTORY: He is . He has smoked more than a pack a day for about 40 years, quit in 1994. He denies any alcohol use. REVIEW OF SYSTEMS: As mentioned above, notable for increasing dyspnea, requiring use of BiPAP up to 16-18 hours per day for the last month or so. Otherwise, 10-point system review negative. PHYSICAL EXAMINATION: GENERAL: He is awake, alert, in moderate distress. He is currently on BiPAP. VITAL SIGNS: Temperature is 98.2 degrees Fahrenheit, pulse is 65, respiratory rate is 21, blood pressure 120/46 mmHg, saturation 97%. HEENT: Normocephalic, atraumatic. NECK: Supple, without lymphadenopathy or thyromegaly. CHEST: Breath sounds are fair with mild expiratory wheezes. CARDIOVASCULAR: Normal S1, S2. There are no murmurs or gallop. There is no JVD. There is no carotid bruit. Pulses 2+/4+ bilaterally. ABDOMEN: Soft, nontender, no organomegaly or masses felt. GENITOURINARY: Deferred. RECTAL: Deferred. EXTREMITIES: There is no edema, cyanosis or clubbing. LABORATORY DATA: Chest x-ray: Small lung volumes, otherwise no acute infiltrates. BNP is 13,900. Lactic acid is normal. Sodium 144, potassium 4.5, chloride 107, CO2 is 24, BUN is 119, creatinine is 2.4. WBC 5500, hemoglobin 7.1, no evidence of bandemia. Troponin 0.08. Arterial blood gas revealed pH 7.42, pCO2 of 34, pO2 of 200 and FiO2 of 50 percent. IMPRESSION: 1. Progressive dyspnea in this 83-year-old white male with history of severe chronic obstructive pulmonary disease, sleep apnea. History suggests that his dyspnea has been worsening over the past month or so, requiring BiPAP nearly 16-18 hours a day. Chest x-ray is unremarkable. He is anemic with hemoglobin of now 6.8. No obvious evidence of acute gastrointestinal bleed. Etiology is probably related to underlying severe chronic obstructive pulmonary disease with exacerbation. Anemia is likely contributing to his dyspnea. Deconditioning is probably contributing. No obvious evidence of pneumonia. 2. Anemia. No obvious evidence of bleeding. He is azotemic with BUN of 119. Question whether he may have slow gastrointestinal bleed resulting in elevated BUN. 3. Chronic obstructive pulmonary disease, severe impairment, baseline FEV1 of [facility] [address] [place] [address] CONSULTATION Name: MORGAN ZAIDI Room #: 236-P [facility] IN .R.#: [id number] Admission: 10/19/18 ������������������ Attend Phys: Jair Santos MD Discharge: ������������������ Date of : 37 Report #: [id number] 1.15 liters, 37% predicted. 4. Sleep apnea, on BiPAP. 5. Fvbxi-oh-mjnaijy hypoxic respiratory failure due to above. 6. Recent diarrhea, etiology not clear at this time, question viral gastroenteritis. 7. Chronic kidney disease. 8. Diabetes mellitus. 9. Severe hearing impairment. 10. Coronary artery disease, past history of coronary artery bypass surgery. 11. History of chronic diastolic heart failure. 12. Debility and weakness. RECOMMENDATION: Agree with transfusion. The patient will need a workup for possible GI bleed. We will continue noninvasive positive pressure ventilation. Wean O2 for saturation 90%. Bronchodilators and corticosteroids will be initiated. Broad-spectrum antibiotics will be started. DVT and GI prophylaxis will be addressed. Note, that the patient's second arterial blood gas shows adequate oxygenation. Some of his dyspnea is likely related to sensation of dyspnea, probably related to severe COPD and anemia. Anxiolytics may be beneficial. Thank you for this consultation. ��������������������������������������������� <ELECTRONICALLY SIGNED> ���������������������������������������� By: Jani Chan MD ��������������������������������������������� 10/20/18 1236 2045 0135 Jani Chan MD /nt
[2018-10-21] VITALS (18 sets, daily range): BP systolic 117–135; BP diastolic 39–54
[2018-10-21 05:19] LABS: HEMATOCRIT 22.7 % (42.0-52.0); HEMOGLOBIN 7.3 gm/dL (14.0-18.0); MCH 27.6 pg (26.0-34.0); MCHC 32.3 g/dL (28.0-37.0); MCV 85.5 fL (80.0-100.0); RBC 2.65 mil/uL (4.50-6.00); RDW 16.5 % (10.5-14.5); WBC 3.1 thou/uL (4.0-11.0)
[2018-10-21 05:23] LABS: CALCIUM 8.6 mg/dL (8.5-10.1); CREATININE 2.6 mg/dL (0.7-1.3); POTASSIUM 4.5 mmol/L (3.5-5.1)
--- NOTE | 2018-10-21 06:00 | NUR ---
REMAINS NPO FOR EGD AND COLONOSCOPY THIS AM. PERMIT SIGNED.
--- NOTE | 2018-10-21 06:00 | NUR ---
PT AWAKE AND ALERT. SLEPT AT INTERVALS TONIGHT. TOOK ALL OF HIS BOWEL PREP. UP TO BEDSIDE COMMODE. HAD 2 LARGE MAROON COLORED LOOSE STOOLS MIXED WITH URINE AND 2 BROWN COLORED LIQUID STOOLS. PT BECAME AGITATED AT 0600 AND STATED HE DID NOT WANT TO HAVE THIS PROCEEDURE TOWONG CELESTE HE MAY HAVE A HEART ATTACK AND . GIVEN EMOTIONAL SUPPORT. 700 CC + OF URINE TONIGHT. REMAINS IN SINUS LYN TO SINUS RHYTHM WITH FIRST DEGREE AV BLOCK TO RUNS OF SINUS ARRYTHMIA. DOCTORS AWARE. PTS AT BEDSIDE. WILL CONT TO MONITOR.
--- NOTE | 2018-10-21 16:16 | NUR ---
ASSUMED CARE OF PATIENT AT 0700, PATIENT HAD AN EGD PLANNED FOR TODAY, GI DOCTOR SPOKE WITH THE PATIENT AN PATIENT REFUSED THE PROCEDURE. ORDERS RECIEVED TO TRANSFER PT OUT OF ICU. REPORT CALLED AND GIVENT TO ACCEPTING NURSE. PT HAS BEEN AFIBRILE.
--- NOTE | 2018-10-21 16:19 | NUR ---
REPORT TAKEN FROM [facility] ICU/RN. PT IN ROOM 204 RESTING IN BED WITH CALL LIGHT IN REACH AND FAMILY AT THE BEDSIDE. NO RESPIRATORY DISTRESS NOTED. VSS. SINUS LYN ON THE MONITOR WITH PAC'S. PT REPORTS NO PAIN. WILL CONTINUE TO MONITOR.
[2018-10-22 03:26] VITALS: BP 134/49
[2018-10-22 04:30] LABS: HEMATOCRIT 22.1 % (42.0-52.0); MCH 27.3 pg (26.0-34.0); MCHC 31.7 g/dL (28.0-37.0); RBC 2.57 mil/uL (4.50-6.00); RDW 16.5 % (10.5-14.5); WBC 3.9 thou/uL (4.0-11.0)
[2018-10-22 04:39] LABS: CALCIUM 8.7 mg/dL (8.5-10.1); CREATININE 2.6 mg/dL (0.7-1.3); POTASSIUM 4.6 mmol/L (3.5-5.1)
--- NOTE | 2018-10-22 06:42 | NUR ---
CPAP PUT INTO USE OVERNIGHT. PT HAS HIGH LEVEL OF ANXIETY WITH ITS USE. MEDICATED LATER IN THE EVENING AND PT RESTED COMFORTABLY. PT IS VERY HARD HEARING AND HAS TO HELP COMMUNICATE SOMETIMES. FOLLOWING POC WITH IVF'S. LASIX GIVEN BEFORE 0700. HOURLY ROUNDING.
[2018-10-22 07:20] VITALS: BP 135/45
[2018-10-22 12:15] VITALS: BP 132/36
--- NOTE | 2018-10-22 15:34 | NUR ---
VSS REMAINS ON 3L O2 WITH CONTINUOUS SAT REMAINING 97-99%, REMAINS IN SB TO NSR 1% AV BLOCK, FREQUENT PVC'S AND 3 BT RUNS VT, IN/OUT AFIB FOR SHORT RUNS. PT TODAY HAD 2 EPISODES OF UNRESPONSIVENESS WHERE HIS HEAD TURNED DOWN AND EYES CLOSED AND WOULDNT RESPOND TO VERBAL OR TACTILE RUBBING FOR 30 SECONDS, DR GALLAGHER/ BINH AWARE. UP IN CHAIR WITH MAX ASSIST, TOOK STEPS AND STEADY ON FEET WITH MAX ASSIST. WILL CONTINUE TO MONITER AND CARE FOR PT PER PLAN OF CARE
[2018-10-22 15:55] VITALS: BP 119/37
[2018-10-22 20:10] VITALS: BP 118/95
--- NOTE | 2018-10-22 22:01 | EKG ---
[place] [address] [employer] [facility] [place] [address] ELECTROCARDIOGRAM REPORT Name: MORGAN ZAIDI Room #: 204-P ADM IN M.R.#: [id number] ������������������ Admission: 10/19/18 ������������������ Attend Phys: Jair Santos MD Discharge: ������������������ Date of : 37 Report #: [id number] ����������������������������������������������������������������� [id number] THIS REPORT FOR: //name// [facility] Test Date: 2018-10-21 Test Time: 11:24:44 Pat Name: MORGAN ZAIDI Department: Room: 204 Gender: M College Archivist: HERIBERTO : 1935 Requested By: Vince Calles Order Number: [id number] MD: Sedrick Lujan Measurements Intervals [place] Rate: 44 P: -32 WV: 285 QRS: 22 QRSD: 98 T: 200 QT: 467 QTc: 400 Interpretive Statements Sinus bradycardia Multiple premature complexes, vent & supraven Prolonged WV interval Probable anterior infarct, age indeterminate Abnormal T, consider ischemia, diffuse leads Electronically Signed On 10-22-2018 22:00:53 HASH SLINGER by Sedrick Lujan [email or web address] ��������������������������������������������� <ELECTRONICALLY SIGNED> ���������������������������������������� By: Sedrick Lujan MD ��������������������������������������������� 10/22/180 112 112 Sedrick Lujan MD /SHAWNA
--- NOTE | 2018-10-23 03:30 | NUR ---
ASSUMED PT CARE AT 1900. PT A/OX4, VITAL SIGNS STABLE, ASSESSMENT CHARTED. FAMILY AT BEDSIDE. NO COMPLAINTS OF PAIN. 3L O2 WHEN AWAKE, CPAPA AT HS, 40% FIO2. PT RESTED WELL THROUGH THE NIGHT. PROGRESSING TOWARD PLAN OF CARE. WILL CONTINUE TO CLOSELY MONITOR.
[2018-10-23 04:06] LABS: CALCIUM 8.3 mg/dL (8.5-10.1); CREATININE 2.5 mg/dL (0.7-1.3); POTASSIUM 4.9 mmol/L (3.5-5.1)
[2018-10-23 04:30] VITALS: BP 143/44
[2018-10-23 05:06] LABS: HEMATOCRIT 22.8 % (42.0-52.0); HEMOGLOBIN 7.3 gm/dL (14.0-18.0); MCH 27.8 pg (26.0-34.0); MCHC 32.1 g/dL (28.0-37.0); MCV 86.5 fL (80.0-100.0); RBC 2.63 mil/uL (4.50-6.00); RDW 16.6 % (10.5-14.5); WBC 3.1 thou/uL (4.0-11.0)
[2018-10-23 07:30] VITALS: BP 130/46
[2018-10-23 09:50] LABS: TSH 0.421 uIU/mL (0.358-3.740)
[2018-10-23 11:45] VITALS: BP 123/57
--- NOTE | 2018-10-23 15:22 | NUR ---
VSS REMIANS NSR WITH1% AV BLOCK, PVC'S, 3 BT RUNS.PT DID HAVE UNRESONSIVE EPISODE TODAY AT 3:15 WITH PHYSICAL THERAPY AFTER STANDING AT BEDSIDE, PT UNRESONSIVE FOR APROX 2 MINUTES TO VERBAL AND STERNAL RUB, MONITER SHOWING NSR HR 50-60, BP 132/72, PT BACK TO ALERT AND ORIENTED X4 AFTER 2 MINUTES. LUNGS REMAIN DIMINISHED, O2 SAT 3L IS 97%. PT HAVING FORMED STOOLS, BROWN ON COLOR. WILL CONTINUE TO MONITER AND CARE FOR PT PER PLAN OF CARE
[2018-10-23 16:00] VITALS: BP 123/41
[2018-10-23 20:30] VITALS: BP 116/40
--- NOTE | 2018-10-24 04:29 | NUR ---
ASSUMED PT CARE AT 1900. PT A/OX4, SOMETIMES FORGETFUL. VITAL SIGNS STABLE, ASSESSMENT CHARTED. PT ON 3L ON O2 WHEN AWAKE, USES CPAP AT NIGHT. PT RESTED WELL TILL ABOUT 0100. PT SEEMED TO BE IN SOME RESPITORY DISTRESS AND HAD AN EPISODE OF SOMNOLENCE. THIS LASTED ABOUT 1 MIN. WHEN AROUSED, PT WAS CONFUSED AND STILL SEEMED TO BE IN RESPITORY DISTRESS. RT WAS CALLED, BREATHING TREATMENT GIVEN, WHICH SEEMED TO HELP. PT RESTED WELL FOR THE REST OF THE NIGHT. PROGRESSING TOWARD PLAN OF CARE. WILL CONTINUE TO MONITOR.
[2018-10-24 04:45] VITALS: BP 139/43
[2018-10-24 07:40] VITALS: BP 134/42
[2018-10-24 09:39] LABS: HEMATOCRIT 24.4 % (42.0-52.0); MCH 28.1 pg (26.0-34.0); MCHC 32.9 g/dL (28.0-37.0); MCV 85.4 fL (80.0-100.0); RBC 2.86 mil/uL (4.50-6.00); RDW 16.9 % (10.5-14.5)
[2018-10-24 12:10] VITALS: BP 118/42
[2018-10-24 16:05] VITALS: BP 128/41
[2018-10-24 20:15] VITALS: BP 123/48
[2018-10-25 04:10] LABS: HEMOGLOBIN 7.9 gm/dL (14.0-18.0); MCHC 31.6 g/dL (28.0-37.0); MCV 85.6 fL (80.0-100.0); RBC 2.92 mil/uL (4.50-6.00); RDW 16.2 % (10.5-14.5); WBC 4.7 thou/uL (4.0-11.0)
[2018-10-25 04:15] LABS: CALCIUM 8.6 mg/dL (8.5-10.1); CREATININE 2.1 mg/dL (0.7-1.3); MAGNESIUM 1.9 mg/dL (1.8-2.4); POTASSIUM 4.5 mmol/L (3.5-5.1)
[2018-10-25 04:30] VITALS: BP 139/42
--- NOTE | 2018-10-25 06:18 | NUR ---
PT. AX04 DURING ASSESSMENT; RELATIVE AT THE BEDSIDE; PREP FOR COLONOSCOPY; PT. ABLE TO DRINK COMPLETE MEDICATION; HAD SEVERAL LIQUID BM'S DURING THE NIGHT; NPO AFTER MIDNIGHT; HR LOW ON THE 40'S DURING THE NIGHT; NO C/O PAIN; HBG ABOVE 7 EARLY ON THE MORNING; CONCENT NO SIGN; WILL PASS ON REPORT; ASSESSMENT CHARGED; FOLLOWING POC; WILL PASS ON REPORT.
[2018-10-25 07:18] VITALS: BP 146/42
--- NOTE | 2018-10-25 08:33 | NUR ---
WOUND CONSULT: PT. WAS SEEN ON 10/24/[address] GABRIEL AND MYSELF. PT. IS WELL KNOWN TO THE WOUND CARE TEAM. PT. HAS BILATERAL LOWER EXTREMITY EDEMA. PT. HAD A BLISTER TO HIS LEFT CALF IN REALTION TO THIS. THE BLISTER HAS OPENED AND IS DRAINING LARGE AMOUNTS OF SEROUS FLUID. RECOMMENDATIONS: WOUND CARE TO LEFT CALF: GENTLY CLEANSE AREA WITH WOUND CLEANSER OR NORMAL SALINE, PACK WITH AQUACEL AG TO WOUND BED, COVER WITH BORDERED FOAM, COMPLETE CARES DAILY AND PRN. PT. AND STAFF NURSE WERE INSTRUCTED ON PLAN OF CARE.
--- NOTE | 2018-10-25 13:42 | EKG ---
[address] [address] ELECTROCARDIOGRAM REPORT Name: MORGAN ZAIDI Room #: 204-P ADM IN M.R.#: [id number] ������������������ Admission: 10/19/18 ������������������ Attend Phys: Jair Santos MD Discharge: ������������������ Date of : 37 Report #: [id number] ����������������������������������������������������������������� [id number] THIS REPORT FOR: //name// [facility] Test Date: 2018-10-25 Test Time: 11:16:33 Pat Name: MORGAN ZAIDI Department: Room: 204 P Gender: M Piper Helper: KAYLYNN : 1935 Requested By: Aliza Mendez Order Number: [id number] MD: Sedrick Lujan Measurements Intervals [place] Rate: 54 P: AR: QRS: 20 QRSD: 98 T: 216 QT: 428 QTc: 406 Interpretive Statements Possible Atrial fibrillation Probable LVH with secondary repol abnrm Compared to ECG 10/21/2018 11:24:44 Electronically Signed On 10-25-2018 13:42:28 AUTOMOTIVE SERVICE DIRECTOR by Sedrick Lujan [email or web address] ��������������������������������������������� <ELECTRONICALLY SIGNED> ���������������������������������������� By: Sedrick Lujan MD ��������������������������������������������� 10/25/18 1342 1116 1116 Sedrick Lujan MD /SHAWNA
[2018-10-25 15:08] VITALS: BP 140/45
--- NOTE | 2018-10-25 15:29 | NUR ---
patient candidate for 5N. 5N liason to speak with family. casemgt following
[2018-10-25 20:45] VITALS: BP 131/33
[2018-10-25 21:05] VITALS: BP 131/33
[2018-10-26 04:19] VITALS: BP 130/33
--- NOTE | 2018-10-26 04:56 | NUR ---
PT. AOX3 AT SHIFT CHANGE; NO C/O PAIN; RELATIVE AT BED SIDE; UPSET BECAUSE WAS PLANNING TO LEAVE LATER ON THE NIGHT; EXPLAINED NURSE WILL BE CLOSE TO ROOM; REQUESTED C-PAP DURING HS MEDICATION; CALLED RT; REQUESTED TV AND LIGHTS OFF; ABLE TO REST MOST OF THE NIGHT WITH EYES CLOSE; ASSESSMENT CHARGED; FOLLOWING POC. WILL PASS ON REPORT.
[2018-10-26 07:21] LABS: HEMATOCRIT 26.6 % (42.0-52.0); HEMOGLOBIN 8.2 gm/dL (14.0-18.0); MCH 26.5 pg (26.0-34.0); MCV 85.7 fL (80.0-100.0); RBC 3.11 mil/uL (4.50-6.00); RDW 16.9 % (10.5-14.5); WBC 7.6 thou/uL (4.0-11.0)
[2018-10-26 07:35] VITALS: BP 124/36
[2018-10-26 08:39] LABS: CALCIUM 8.2 mg/dL (8.5-10.1); CREATININE 1.6 mg/dL (0.7-1.3); POTASSIUM 4.4 mmol/L (3.5-5.1)
--- NOTE | 2018-10-26 11:56 | NUR ---
PT HAS BEEN ACCEPTED FOR A 5N ACUTE REHAB STAY AND THEY HAVE A BED FOR HIM LATER THIS AFTERNOON. ALL PARTIES UPDATED AND AGREEABLE.
[2018-10-26 12:56] VITALS: BP 118/73
--- NOTE | 2018-10-26 15:04 | NUR ---
WOUND FOLLOW UP: PT. WAS SEEN TODAY BY DR. GABRIEL AND MYSELF. PT. WOUND IS CLINICALLY BETTER TODAY UPON ASSESEMENT. RECOMMENDATIONS: CONTINUE WITH CURRENT PLAN OF CARE. PT. AND STAFF NURSE WERE INSTRUCTED ON PLAN OF CARE.
[2018-10-26] MEDS ORDERED: PERCOCET 10-321 EACH PO (17:03)
[2018-10-26] MEDS ORDERED: PREDNISONE 20 M20 M1 PO (17:03)
[2018-10-26] MEDS ORDERED: DOXYCYCLINE HYC50 MG PO (17:03)
--- NOTE | 2018-10-26 19:52 | P ---
[facility] [place] [address] PROCEDURE REPORT Name: DYANMORGAN Room #: 204-P [facility] IN M.R.#: [id number] Admission: 10/19/18 ������������������ Attend Phys: Jair Santos MD Discharge: 10/26/18 ������������������ Date of : 39 Report #: [id number] THIS REPORT FOR: //name// CC: Jair Whittaker MD DATE OF SERVICE: 10/19/2018 PROCEDURE: EGD with biopsies. Patient of Dr. Aneesh Whittaker and Dr. Jair Santos and this is Dr. Aliza Mendez, recording. INDICATION FOR PROCEDURE: The patient is anemic and he has heme-positive stools of undetermined etiology. Informed consent for this procedure was obtained prior to the administration of any medication. The risks of the procedure, which include but are not limited to bleeding, perforation, infection, complications of sedation and the possibility I could miss something have been explained to the patient and he has indicated his consent by signing. Propofol was kindly administered by the anesthesia service for deep sedation for this procedure. The Olympus upper videoscope was introduced through the upper esophageal sphincter and advanced under direct visualization to the third portion of the duodenum. Findings noted on withdrawal of the scope. Duodenal mucosa appears normal throughout its entirety. Biopsies obtained x 2 from the second portion of the duodenum to evaluate for possible celiac sprue as an etiology of an iron deficiency anemia. Good hemostasis was noted after those biopsies. Pylorus, normal mucosa. Antrum, normal mucosa. Body, normal mucosa. Cardia and fundus, normal mucosa. Retroflex view did not reveal any hiatal hernia. Scope was withdrawn into the esophagus. The Z-line is appropriately located at the top of the gastric folds and appears normal. The esophageal mucosa appeared normal throughout its entirety. Scope was withdrawn and the patient was turned for colonoscopy. IMPRESSION: Normal EGD to the third portion of the duodenum. Biopsies taken for celiac evaluation as above. RECOMMENDATIONS: To await the biopsy results and proceed with colonoscopy at this time. [address] [address] PROCEDURE REPORT Name: MORGAN ZAIDI Room #: 204-P DIS IN M.R.#: [id number] Admission: 10/19/18 ������������������ Attend Phys: Jair Santos MD Discharge: 10/26/18 ������������������ Date of : 39 Report #: [id number] Thank you very much once again for allowing me to participate in his care. ��������������������������������������������� <ELECTRONICALLY SIGNED> ���������������������������������������� By: Aliza Mendez DO ��������������������������������������������� 10/26/18 1952 2214 0149 Aliza Mendez DO /nt
--- NOTE | 2018-10-28 13:39 | HC ---
[facility] [place] [address] CONSULTATION Name: MORGAN ZAIDI RAMON Room #: 204-P [facility] IN M.R.#: [id number] Admission: 10/19/18 ������������������ Attend Phys: Jair Santos MD Discharge: 10/26/18 ������������������ Date of : 37 Report #: [id number] THIS REPORT FOR: //name// CC: Jair Whittaker DATE OF SERVICE: 10/24/2018 CHIEF COMPLAINT: Ulceration, left medial ankle. HISTORY OF PRESENT ILLNESS: This is an 83-year-old male patient with a history of congestive heart failure with recent exacerbation, who was noted to have a large blister on his medial ankle. It has been draining. I have been asked to see him with regard to this. We have seen him in the past in the wound center. The patient denies significant pain, but moderate serous drainage from his leg. The patient's states that she drained it with a small pin. PAST MEDICAL HISTORY: Positive for history of congestive heart failure, diabetes mellitus, hypertension, chronic kidney disease. ALLERGIES: PENICILLIN. MEDICATIONS: Include torsemide, doxazosin, Plavix, Synthroid, Lipitor, metoprolol, Protonix, aspirin, Levemir, Symbicort. SOCIAL HISTORY: The patient has previous history of smoking. Denies current alcohol use. FAMILY HISTORY: Positive for heart disease, diabetes, and hypertension. REVIEW OF SYSTEMS: CONSTITUTIONAL: The patient denies fever, chills, weight loss. NEUROLOGICAL: The patient denies focal weakness, numbness or tingling. EYES: The patient denies visual changes, redness or drainage. ENT: The patient denies earache, nasal drainage or sore throat. CARDIOVASCULAR: The patient denies chest pain, palpitation or diaphoresis. PULMONARY: The patient complains of mild cough and mild shortness of breath. GASTROINTESTINAL: The patient denies nausea, vomiting or abdominal pain. ORTHOPEDIC: The patient complains of swelling of his lower extremities and a blister of his left ankle. Other systems in a 14-point review of systems are negative. PHYSICAL EXAMINATION: VITAL SIGNS: At this time include temperature 97.2, pulse 71, respiratory rate of 18, blood pressure 120/41. GENERAL: This is a chronically ill-appearing male patient, [place] [address] CONSULTATION Name: MORGAN ZAIDI RAMON Room #: 204-P [facility] IN M.R.#: [id number] Admission: 10/19/18 ������������������ Attend Phys: Jair Santos MD Discharge: 10/26/18 ������������������ Date of : 37 Report #: [id number] no distress. HEENT: Head normocephalic. Nose and throat are clear. NECK: Supple. LUNGS: Diminished. HEART: Regular rate. ABDOMEN: Soft. Bowel sounds present. EXTREMITIES: Demonstrate 3+ edema. There is a circular ulceration on the medial aspect of the left lower leg, has relatively clean and appears to be partial thickness. NEUROLOGIC: The patient is alert and oriented and appropriate. CLINICAL IMPRESSION: 1. Ulceration, left medial ankle following ruptured blister. 2. Congestive heart failure. 3. Diabetes mellitus type 2, uncontrolled with hyperglycemia. 4. Chronic kidney disease. RECOMMENDATIONS: At this point in time, we will recommend silver alginate and a foam-based dressing to be changed once daily. Hopefully, this will be absorptive enough. Recommend elevation of the legs. We will hold off on any significant compression at this time until his breathing is improved. I appreciate being asked to see him in consultation. We will recommend continue of current medications and nutritional support for healing. ��������������������������������������������� <ELECTRONICALLY SIGNED> ���������������������������������������� By: Emile Chavez MD ��������������������������������������������� 10/28/18 1339 [id number] Emile Chavez MD /nt
--- NOTE | 2018-10-30 10:06 | PATH ---
[facility] [address] [address] PATHOLOGY RPT PROCEDURE Name: YASH,MORGAN RAMON Room #: 204-P DIS IN M.R.#: [id number] ������������������ Admission: 10/19/18 ������������������ Date of : 37 Discharge: 10/26/18 Report #: [id number] Path Case #: [id number] [facility] Accession Number: [id number] . 01 Material submitted: . PART A: BX DUODENUM R/O CELIAC SPRUE PART B: BX PERIAPPENDICAL ULCERATION PART C: BX ERYTHEMA AT CECUM PART D: BX TISSUE PROXIMAL ASCENDING COLON PART E: POLYP AT PROXIMAL TRANSVERSE PART F: POLYP AT 45CM PART G: POLYP AT 40CM PART H: POLYP AT 25 PART I: POLYP AT RECTUM . 01 Clinical history: . Anemia, GI bleed . 02 Diagnosis: A. Small bowel mucosa, duodenum, endoscopic biopsy: - No diagnostic abnormalities present. - Negative for villous blunting or increase in intraepithelial lymphocytes. . B. Large intestinal mucosa, periappendiceal ulceration, endoscopic biopsy: - Fragments of fibrinopurulent material consistent with ulceration. - Remainder sample showing superficial fragments with hyperplastic changes, acute colitis as well as granulation tissue (please see comment). - Negative for dysplasia or malignancy. . C. Large intestinal mucosa, erythema at cecum, endoscopic biopsy: - Fragments entirely comprised of fibrinopurulent material and granulation tissue, consistent with ulceration. - No intact epithelium present. . D. Large intestinal mucosa, tissue proximal ascending colon, endoscopic biopsy: - Reactive hyperplastic changes, focal active colitis as well as fragments of granulation tissue, please see comment. - Negative for dysplasia. . E. Polyp, at proximal transverse, endoscopic biopsy: - Tubular adenoma. - Negative for high grade dysplasia. - Unremarkable mucosa present at inked margin. . F. Polyp, at 45 cm, endoscopic biopsy: [facility] [address] [place] [address] PATHOLOGY RPT PROCEDURE Name: MORGAN BERRIOS RAMON Room #: 204-P DIS IN M.R.#: [id number] ������������������ Admission: 10/19/18 ������������������ Date of : 37 Discharge: 10/26/18 Report #: [id number] Path Case #: [id number] - Tubular adenoma associated with hyperplastic changes. - Negative for high grade dysplasia. . G. Polyp, at 40 cm, endoscopic biopsy: - Tubular adenoma associated with hyperplastic changes. - Negative for high grade dysplasia. . H. Polyp, at 25 cm, endoscopic biopsy: - One fragment showing tubular adenoma without high grade dysplasia. - Second fragment showing hyperplastic polyp without dysplasia. . I. Polyp, at rectum, endoscopic biopsy: - Multiple fragments of a tubulovillous adenoma. - Negative for high grade dysplasia. . (IUV:mml; 10/26/2018) QLM/10/26/2018 . 02 Comment: B, C and D: Examination of the "periappendiceal ulceration" shows superficial epithelial fragments with acute cryptitis. The lamina propria is comprised of granulation tissue. The sample obtained from the cecum shows fragments of granulation tissue without any intact epithelium. The fragments sampled as "tissue proximal ascending colon" show reactive hyperplastic changes, granulation tissue, acute cryptitis, changes similar to the once noted in the "periappendiceal ulceration" biopsy tissue. Viral inclusions are not present. There are no granulomata present. The differential diagnosis includes an infectious-type of colitis, acute colitis secondary to medication as well as an inflammatory bowel disease. Changes suggestive of ischemia are not identified. Clinical correlation is suggested. . (IUV:mml; 10/26/2018) . 02 Electronically signed: . Bella Ye MD, Pathologist NPI- [id number] . 01 Gross description: . A. Received in formalin labeled "Morgan Berrios BX duodenum, rule out celiac sprue," is a single segment of alcantara soft tissue measuring 0.5 cm in maximum dimension. The specimen is entirely submitted in cassette A1. . B. Received in formalin labeled "Morgan Berrios, DARIEL periappendiceal ulceration," are 3 segments of alcantara soft tissue measuring 0.5 x 0.5 x 0.1 cm in aggregate dimensions and ranging from 0.1 to 0.2 cm in maximum dimension. The specimen is submitted entirely in cassette B1. [facility] [address] [place] [address] PATHOLOGY RPT PROCEDURE Name: MORGAN BERRIOS RAMON Room #: 204-P DIS IN M.R.#: [id number] ������������������ Admission: 10/19/18 ������������������ Date of : 37 Discharge: 10/26/18 Report #: [id number] Path Case #: [id number] . C. Received in formalin labeled "Yash Morgan, BX erythema at cecum," are multiple segments of alcantara soft tissue measuring 1.0 x 0.1 x 0.1 cm in aggregate dimensions. The specimen is filtered and entirely submitted in cassette C1. . D. Received in formalin labeled "Yash Morgan, BX tissue proximal ascending colon," are 2 segments of alcantara soft tissue measuring 0.7 x 0.2 x 0.1 cm in aggregate dimensions and ranging from 0.3 to 0.4 cm in maximum dimension. The specimen is submitted entirely in cassette D1. . E. Received in formalin labeled "Yash Morgan, polyp at proximal transverse," is a 0.7 x 0.5 x 0.4 cm polypoid piece of alcantara soft tissue. The margin is inked and the specimen is sectioned perpendicular to the margin and entirely submitted in cassette E1. . F. Received in formalin labeled "Yash Morgan, polyp at 45 cm," is a single segment of alcantara soft tissue measuring 0.3 cm in maximum dimension. The specimen is entirely submitted in cassette F1. . G. Received in formalin labeled "Yash Morgan, polyp at 40 cm," are 2 segments of alcantara soft tissue measuring 0.9 x 0.3 x 0.3 cm in aggregate dimensions and ranging from 0.4 to 0.5 cm in maximum dimension. The specimen is submitted entirely in cassette G1. . H. Received in formalin labeled "Morgan Berrios, polyp at 25 cm," are 2 segments of alcantara soft tissue measuring 0.9 x 0.3 x 0.3 cm in aggregate dimensions and ranging from 0.4 to 0.5 cm in maximum dimension. The specimen is submitted entirely in cassette H1. . I. Received in formalin labeled "Morgan Berrios, polyp rectum," is a 1.4 x 1.1 x 1.1 cm polypoid piece of alcantara soft tissue. The margin is inked and the specimen is sectioned perpendicular to the margin and entirely submitted in cassette I1 through I3. Additionally received in the same container is a 1.0 x 0.7 x 0.4 cm polypoid piece of alcantara soft tissue. The margin is inked and the specimen is sectioned perpendicular to the margin and submitted entirely in cassette I4 and I5. (TSD; 10/25/2018) TOB/TOB . 02 Pathologist provided ICD-10: K63.3, K52.9, D12.6, D12.8, K63.5 . 02 CPT . 942466, 184469, 336456, 154744, 683052, 237880, 676065, 925492, 093509 Specimen Comment: A courtesy copy of this report has been sent to Specimen Comment: [phone], , . Specimen Comment: Report sent to ,DR NARVAEZ / [place] [address] PATHOLOGY RPT PROCEDURE Name: MORGAN BERRIOS RAMON Room #: 204-P DIS IN M.R.#: [id number] ������������������ Admission: 10/19/18 ������������������ Date of : 37 Discharge: 10/26/18 Report #: [id number] Path Case #: [id number] Specimen Comment: A duplicate report has been generated due to demographic updates. Performed at: [address], [place], [place] [id number] MD Naun Clay MD Phone: [phone] Performed at: [address] [id number] MD Bella Ye MD Phone: [phone]
--- NOTE | 2018-10-30 13:50 | HC ---
[facility] [place] [address] [place] [address] CONSULTATION Name: MORGAN ZAIDI RAMON Room #: 204-P [facility] IN M.R.#: [id number] Admission: 10/19/18 ������������������ Attend Phys: Jair Santos MD Discharge: 10/26/18 ������������������ Date of : 37 Report #: [id number] THIS REPORT FOR: //name// CC: Jair Whittaker DATE OF SERVICE: 10/23/2018 HISTORY OF PRESENT ILLNESS: This is an 83-year-old male patient who was evaluated by me for confusion and episode of somnolence. The patient presents with a history that he basically falls asleep. His has noticed it more than he has noticed it. He thinks these episodes started about a week and a half ago. This started spontaneously without any trauma. He had trauma to the head in the past, but that did not cause him any symptoms. He is confused after these episodes. The confusion is moderately severe. REVIEW OF SYSTEMS: Indicate that he has multiple problems. He is being followed by multiple physicians. He has shortness of breath. He has cardiac problem for which he is being followed by shaper and presser. He has a history of carotid artery disease with right-sided carotid stenosis. He has no history of TIA or stroke in the past. He does have a history of hyperlipidemia. He does have a history of hypertension. He does have a history of diabetes. Looking at his record, it would appear he has a history of renal failure. He is pretty significantly anemic and he is being worked up and managed for that. He is very hard of hearing. His vision looks intact. There is a question of atrial fibrillation as I understand. He denies any symptoms. He has significant back pain and he cannot lie still for MRI. He denies any constitutional, dermatological, psychiatric, throat, allergic symptoms associated with present symptomatology. PAST MEDICAL HISTORY: Negative for any stroke. FAMILY HISTORY: Negative for any early age stroke. SOCIAL HISTORY: He does not drink any alcohol. He has smoked in the past, but does not do it now. PHYSICAL EXAMINATION: Indicates he is alert, responsive. He can tell me what month it is, but could not tell me what exact date it is. He was able to name the president and knew which hospital he is in. His, memory in general, is poor. His speech and concentration look intact. His fund of knowledge is also poor. His cranial nerve examination 2-12 indicates that he is hard of hearing. Strength, sensation, reflexes and tone is symmetrical. There is no meningeal sign. I could not look at the patient's fundus. There is no cerebellar sign. He is a well-developed individual who does not have any dysmorphic features of [address] [address] CONSULTATION Name: MORGAN ZAIDI Room #: 204-P DIS IN M.R.#: [id number] Admission: 10/19/18 ������������������ Attend Phys: Jair Santos MD Discharge: 10/26/18 ������������������ Date of : 37 Report #: [id number] eyes, ears and face. His vision looks adequate. His hearing is impaired. He has multiple skin breakdowns in his legs. Pulses are difficult to feel. His position sense is intact. He does not have any edema. His cardiac exam is stable. He has no thyroid mass. He does appear to have moderate amount of respiratory difficulty that is being addressed by pulmonary and cardiac. Blood pressure is 130/46, respirations are 20, pulse is 60, temperature is 97.9. LABORATORY DATA: His hemoglobin is 7.3. His GFR is only 25. He did have increased TSH in 2017, but he is being followed by rail switchman and he is on replacement thyroid medication as I understand from him. IMPRESSION: This patient is having unusual kind of spells. The possibility of these being seizures or transient ischemic attack or cataplectic spells need to be excluded. He has no other features of narcolepsy and never had this spell and cataplexy will be unlikely. We will work him up and I recommended MRI of the brain and MRA. He indicates he cannot do MRI. We cannot do CT angiogram because of his kidney condition and he already had a carotid Doppler, so I think we will do a CT and EEG as the test and see what that shows. I will recheck his TSH to make sure that is okay and we will see if his spells improve with the correction of his metabolic problems. RECOMMENDATIONS: 1. EEG. 2. MRI. 3. Repeat TSH and vitamin B12. 4. We will look at this workup and see what it shows and follow up with you. Thank you very much for this referral. ��������������������������������������������� <ELECTRONICALLY SIGNED> ���������������������������������������� By: Anthony Kaur MD ��������������������������������������������� 10/30/18 1350 0919 182 Anthony Kaur MD /nt
--- NOTE | 2018-10-30 13:50 | EEG ---
[facility] [place] [address] [place] [address] ELECTROENCEPHALOGRAM Name: MORGAN ZAIDIN Room #: 204-P [facility] IN M.R.#: [id number] ������������������ Admission: 10/19/18 ������������������ Attend Phys: Jair Santos MD Discharge: 10/26/18 ������������������ Date of : 37 Report #: [id number] ����������������������������������������������������������������� [id number] THIS REPORT FOR: //name// CC: Jair Whittaker DATE OF SERVICE: 10/23/2018 This patient is being evaluated for episodes of altered mental status. EEG was done by placing the electrode by standard 10-20 system of electrode placement. Both referential and sequential montages were used for recording. Background activity in this patient's EEG is about 8-9 Hz and 30 microvolt. Photic stimulation is unremarkable. This patient became drowsy and that is associated with bilateral slowing and vertex sharp waves. Throughout the record, no active epileptiform activity was noticed. IMPRESSION: This patient's EEG is intermixed with theta range slowing on both sides. That is a nonspecific abnormality, which can occur with drowsiness, effect of psychotropic medication, dementia, mild encephalopathy, etc. No active epileptiform activity was noticed during this record. ���������������������������������������� <ELECTRONICALLY SIGNED> ���������������������������������������� By: Anthony Kaur MD ��������������������������������������������� 10/30/18 1350 0821 [id number] Anthony Kaur MD /nt
== END 2018-10-26 17:58 | DRG 377 ==
LOC: ER 14:20 → 2N 15:31 → EROBS 15:31 → ICU 15:31 → 2N 16:57 → ICU 21:16 → 2N 10-21 16:15 → ENTRNSPT 10-26 17:26 → 2N 10-26 17:58
PROVIDERS: Emergency Medicine; Hospitalist; Internal Medicine Gastroenterology; Internal Medicine Pulmonary Disease; Nurse Practitioner Adult Health; Psychiatry & Neurology Neuromuscular Medicine; ADMIT Internal Medicine
PROC: 0DBM8ZZ Excision of Descending Colon, Via Natural or Artificial Opening Endoscopic (ICD-10-PCS; principal; 2018-10-19)
PROC: 5A09357 Assistance with Respiratory Ventilation, Less than 24 Consecutive Hours, Continuous Positive Airway Pressure (ICD-10-PCS; principal; 2018-10-19)
PROC: 0DBH8ZX Excision of Cecum, Via Natural or Artificial Opening Endoscopic, Diagnostic (ICD-10-PCS; principal; 2018-10-19)
PROC: 0DBK8ZX Excision of Ascending Colon, Via Natural or Artificial Opening Endoscopic, Diagnostic (ICD-10-PCS; principal; 2018-10-19)
PROC: 0DB98ZX Excision of Duodenum, Via Natural or Artificial Opening Endoscopic, Diagnostic (ICD-10-PCS; principal; 2018-10-19)
PROC: 0DBL8ZZ Excision of Transverse Colon, Via Natural or Artificial Opening Endoscopic (ICD-10-PCS; principal; 2018-10-19)
PROC: 0D5L8ZZ Destruction of Transverse Colon, Via Natural or Artificial Opening Endoscopic (ICD-10-PCS; principal; 2018-10-19)
PROC: 0DBP8ZZ Excision of Rectum, Via Natural or Artificial Opening Endoscopic (ICD-10-PCS; principal; 2018-10-19)
PROC: 30233N1 Transfusion of Nonautologous Red Blood Cells into Peripheral Vein, Percutaneous Approach (ICD-10-PCS; principal; 2018-10-19)
PROC: 0DBN8ZZ Excision of Sigmoid Colon, Via Natural or Artificial Opening Endoscopic (ICD-10-PCS; principal; 2018-10-19)
PROC: 5A09357 Assistance with Respiratory Ventilation, Less than 24 Consecutive Hours, Continuous Positive Airway Pressure (ICD-10-PCS; 2018-10-20)
PROC: 5A09357 Assistance with Respiratory Ventilation, Less than 24 Consecutive Hours, Continuous Positive Airway Pressure (ICD-10-PCS; 2018-10-21)
PROC: 5A09357 Assistance with Respiratory Ventilation, Less than 24 Consecutive Hours, Continuous Positive Airway Pressure (ICD-10-PCS; 2018-10-25)
PROC: 5A09357 Assistance with Respiratory Ventilation, Less than 24 Consecutive Hours, Continuous Positive Airway Pressure (ICD-10-PCS; 2018-10-26)
DX: K92.2 Gastrointestinal hemorrhage, unspecified (principal); J96.21 Acute and chronic respiratory failure with hypoxia; I50.43 Acute on chronic combined systolic (congestive) and diastolic (congestive) heart failure; N17.9 Acute kidney failure, unspecified; L97.329 Non-pressure chronic ulcer of left ankle with unspecified severity; J44.1 Chronic obstructive pulmonary disease with (acute) exacerbation; D62 Acute posthemorrhagic anemia; I47.1 Supraventricular tachycardia; K55.9 Vascular disorder of intestine, unspecified; I13.0 Hypertensive heart and chronic kidney disease with heart failure and stage 1 through stage 4 chronic kidney disease, or unspecified chronic kidney disease; I25.5 Ischemic cardiomyopathy; K21.9 Gastro-esophageal reflux disease without esophagitis; E03.9 Hypothyroidism, unspecified; N18.9 Chronic kidney disease, unspecified; I25.10 Atherosclerotic heart disease of native coronary artery without angina pectoris; S90.522A Blister (nonthermal), left ankle, initial encounter; E11.65 Type 2 diabetes mellitus with hyperglycemia; K64.4 Residual hemorrhoidal skin tags; K63.5 Polyp of colon; E11.22 Type 2 diabetes mellitus with diabetic chronic kidney disease; G47.33 Obstructive sleep apnea (adult) (pediatric); E66.9 Obesity, unspecified; I65.29 Occlusion and stenosis of unspecified carotid artery; E78.00 Pure hypercholesterolemia, unspecified; Z87.891 Personal history of nicotine dependence; Z88.8 Allergy status to other drugs, medicaments and biological substances; Z87.81 Personal history of (healed) traumatic fracture; Z82.49 Family history of ischemic heart disease and other diseases of the circulatory system; Z95.1 Presence of aortocoronary bypass graft; Z98.42 Cataract extraction status, left eye; Z98.41 Cataract extraction status, right eye; Z88.0 Allergy status to penicillin; Z83.3 Family history of diabetes mellitus; Z68.31 Body mass index [BMI] 31.0-31.9, adult; I25.2 Old myocardial infarction
CPT/HCPCS: 10078; 10081; 62110; 62900; 70005

== ENCOUNTER 2018-10-26 14:14 | Inpatient (IN) | payer OTHER, MEDICARE ==
[~2018-10-26] VITALS: Ht 175.3 cm; Wt 94.8 kg
--- NOTE | ~2018-10-26 | PLAN ---
[facility] [place] [address] REHAB UNIT PLAN OF CARE Name: DYANMORGAN RAMON Room #: 503-P ADM IN M.R.#: [id number] Admission: 10/26/18 ������������������ Attend Phys: Tobias Craig MD Discharge: ������������������ Date of : 37 Report #: [id number] THIS REPORT FOR: //name// CC: Tobias Whittaker DATE OF SERVICE: 10/28/2018 PROGRESS NOTE/OVERALL PLAN OF CARE SUBJECTIVE: The patient was seen earlier. He was in no distress. Temperature 36.6, pulse 105, respirations 18, blood pressure 147/53. He has been involved in therapies with transfers at a mod assist level. Gait has been min assist 60 feet with the 4-wheeled walker. In occupational therapy, upper body dressing is moderate assistance. Lower body dressing is moderate assistance. In speech therapy, he is noted to have moderate cognitive deficits with bihsqnab-yi-vbfwew memory deficits. ASSESSMENT: 1. Cardiopulmonary debilitation. 2. Acute on chronic respiratory failure. 3. Acute exacerbation of chronic obstructive pulmonary disease. 4. Anemia with gastrointestinal involved. 5. Mild acute exacerbation of congestive heart failure. 6. Unresponsiveness with acute mental status change. 7. Coronary artery disease. 8. Type 2 diabetes mellitus. 9. Hypothyroidism. 10. Chronic kidney disease. PLAN: The overall plan of care is based on the preadmission screen, post-admission physician evaluation and information garnered from therapy assessments. 1. Estimated length of stay is probably at least 10 days to 2 weeks. 2. Medical prognosis is reasonably good. 3. Anticipated interventions includes the interdisciplinary acute inpatient rehabilitation program with PT, OT, speech involved. Rehab nursing assisting regarding medication management, skin care prophylaxis, bowel and bladder issues and nursing education. security systems manager will be involved as well as the rest of the interdisciplinary acute inpatient rehabilitation team and the campaign consultant physicians. 4. Anticipated functional outcomes would be for the patient to become modified independent with transfers and mobility issues at least at the walker level, so that he can return back to the home setting. 5. Discharge destination would be back home with at a walker level. 6. Expected therapy by discipline includes PT, OT and speech 1 hour per day [address] [address] REHAB UNIT PLAN OF CARE Name: MORGAN ZAIDI Room #: 503-P [facility] IN [facility].#: [id number] Admission: 10/26/18 ������������������ Attend Phys: Tobias Craig MD Discharge: ������������������ Date of : 37 Report #: [id number] each five days a week throughout the duration of the acute inpatient rehabilitation stay. ��������������������������������������������� ���������������������������������������� By: ��������������������������������������������� 0934 [id number] Tobias Craig MD /nt
--- NOTE | ~2018-10-26 | H ---
[facility] [place] [address] HISTORY AND PHYSICAL Name: DYANMORGAN RAMON Room #: 503-P ADM IN M.R.#: [id number] Admission: 10/26/18 ������������������ Attend Phys: Tobias Craig MD Discharge: ������������������ Date of : 37 Report #: [id number] THIS REPORT FOR: //name// CC: Tobias Whittaker DATE OF SERVICE: 10/26/2018 HISTORY AND PHYSICAL/POST-ADMISSION PHYSICIAN EVALUATION HISTORY OF PRESENT ILLNESS: The patient is an 83-year-old white male originally admitted to [facility] to 10/19/2018 with worsening shortness of breath, diagnosed with gfazg-zg-pwzpgyv respiratory failure and acute exacerbation of COPD. The patient was treated with IV steroids, IV antibiotics, O2, nebulizers. He had mild acute exacerbation of CHF, treated with diuretics. He had anemia with a positive occult stool, refused GI recommendation for EGD and colonoscopy. He did receive packed red blood cells. He had couple of episodes of unresponsiveness with Neurology consulted. Neurology was uncertain what the etiology of the patient's spells were. Since they resolved, the recommendation was to observe. He cannot do an MRI because of his back. CT of the head was negative. EEG noted to be nonspecific. He was noted to have significant functional decline from his premorbid status and has now been admitted for acute in-hospital inpatient rehabilitation. PAST MEDICAL HISTORY: Hypertension, coronary artery disease, status post CABG, CHF with ejection fraction of 40-45%, diabetes mellitus, hyperlipidemia, anemia, and COPD. PAST SURGICAL HISTORY: Coronary artery bypass grafting in 1998, left hip reduction and ORIF. FAMILY HISTORY: Heart disease, diabetes, hypertension. HABITS: Nonsmoker. Did smoke in the past. Alcohol use: None. Drug use: None. MEDICATIONS: Please see the full medication listing. This includes vitamins, herbals, and supplements. ALLERGIES: PENICILLIN CAUSED A RASH. SOCIAL HISTORY: Home setting, lives in a house single story with , 2 entry stairs, then all on one level. He was independent with ADLs, although he needed some help putting shoes on and provided the IADLs. He has a 4-wheeled walker at home. Denied history of falls. [facility] [address] [place] [address] HISTORY AND PHYSICAL Name: MORGAN ZAIDI RAMON Room #: 503-P [facility] IN ..#: [id number] Admission: 10/26/18 ������������������ Attend Phys: Tobias Craig MD Discharge: ������������������ Date of : 37 Report #: [id number] REVIEW OF SYSTEMS: No current complaints of chest pain, shortness of breath, abdominal discomfort. No complaints of headache, swallowing problems, no bowel or bladder changes. No focal extremity pain complaints. PHYSICAL EXAMINATION: GENERAL: He is a pleasant 83-year-old white male in no obvious distress. VITAL SIGNS: Last recorded temperature 98.1, pulse 47, respirations 18, blood pressure 124/35. The patient is alert. HEENT: Appeared to be benign. NEUROLOGIC: Cranial nerves grossly intact. Facies are symmetric. CHEST: Some decreased breath sounds diffusely. CARDIOVASCULAR: Sounded regular rate and rhythm. ABDOMEN: Bowel sounds positive, nontender. GENITOURINARY AND RECTAL: Deferred. MUSCULOSKELETAL: He has functional range of motion of both upper extremities. Strength is grade 3+ to 4-/5. DTRs are trace to 1. Lower extremities, no focal calf swelling, functional range of motion with strength grade 3+ to 4-/5. DTRs are trace to 1. He is mod assist with sit to stand. He ambulated 15 feet min assist with a front-wheeled walker. ASSESSMENT: 1. Cardiopulmonary debilitation. 2. Acute on chronic respiratory failure. 3. Acute exacerbation of chronic obstructive pulmonary disease. 4. Anemia with GI involved. 5. Mild acute exacerbation of congestive heart failure. 6. Unresponsiveness with acute mental status change. 7. Coronary artery disease. 8. Type 2 diabetes mellitus. 9. Hypothyroidism. 10. Chronic kidney disease. The patient did eventually go through the colonoscopy with multiple snare polypectomies and biopsies and ablation of two visible vessels at the proximal transverse colon and the splenic flexure. Wound care is also following regarding ulcer of the left lower leg, status post rupture of bulla. PLAN: The patient is admitted for acute in-hospital inpatient rehabilitation. From a postadmission physician evaluation perspective, there are no relevant changes since the preadmission screening. Please see the above review of prior and current medical and functional conditions and comorbidities. Please see the patient's previous and current functional status. As far as risk of complications, the patient has multiple medical comorbidities as noted above. Initial plan of care involves the interdisciplinary acute inpatient rehabilitation program with goal of maximizing the patient's functional independence, so that he can hopefully return back to his prior living [address] [address] HISTORY AND PHYSICAL Name: MORGAN ZAIDI Room #: 503-P [facility] IN M.R.#: [id number] Admission: 10/26/18 ������������������ Attend Phys: Tobias Craig MD Discharge: ������������������ Date of : 37 Report #: [id number] situation. Measurable functional goals would be for the patient to become modified independent with transfers, mobility and ADLs, so he can return back to the home setting. Prognosis is reasonably good with estimated length of stay probably at least 10 days to 2 weeks. Potential barriers would include his multiple medical comorbidities and decreased functional status. The patient meets diagnostic criteria for an acute in-hospital inpatient rehabilitation stay. He meets the medical necessity criteria and we will have the multiple devops consultant physicians continue to follow while he is on the rehab faith. He does have the tolerance for therapies and has appropriate discharge goals back to the home setting. ��������������������������������������������� ���������������������������������������� By: ��������������������������������������������� 0926 1051 Tobias Craig MD /nt
[~2018-10-26 14:14] MED LIST changes: +IRON325 PO; +NOVOLOG100 UNIT/1 SUBQ; +SYSTANE GEL EYE10 ML OPHTHALMIC; +VITAMIN D1000 UNI1 PO; +VITAMINC500 PO
[2018-10-26] MEDS ORDERED: DOXYCYCLINE HYC50 MG PO (17:03)
[2018-10-26] MEDS ORDERED: PREDNISONE 20 M20 M1 PO (17:03)
[2018-10-26] MEDS ORDERED: PERCOCET 10-321 EACH PO (17:03)
--- NOTE | 2018-10-26 19:37 | NUR ---
REPORT RECIEVED FROM FLOOR RN. PATIENT ARRIVED TO REHAB UNIT WITH VOLUNTEER TRANSPORT AND BELONGINGS. PATIENT TRANSFERED X1 ASSIST. DENIES PAIN. O2 SATS MAINTAINED ON 3L. DRESSING OT LLE C/D/I. PATIENT ORIENTED TO UNIT. SIGNED CONSENTS. CALLED CONSULTS TO NEUROPHYCHOLOGIST. ORDERS RECEIVED FROM HOSPITALIST FOR MEDS. MED ORDERS FAXED TO PHARMACY. PHARMACIST CONTACTED, VERBALIZED THAT HE RECEIVED FAX. REPORT GIVEN TO TRANSFER WORKER RN. RT CONTACTED REGARDING BRINGING UP BIPAP AND CONTINUOUS PULSE OX MONITOR.
[2018-10-26 21:14] VITALS: BP 115/44
[2018-10-27] VITALS: BP 142/48
--- NOTE | 2018-10-27 02:55 | NUR ---
ASSESSEMENT: PT REMAIN ALERT AND ORIENT TIMES FOUR. VSS, AFEBRILE. AT THE BEDSIDE FOR THE SHIFT. DENIES PAIN. DOES GET SOB BUT RECOVERS WELL. ON BIPAP AT NIGHT. TOLERATING PO INTAKE. VS EVERY FOUR HOURS. HX OF A-FIB, CONTROLLED. PT WAS A NEW ADMIT AT SHIFT CHANGE. HX COMPLETED. SLOW PROGRESS TOWARDS DC GOALS, WILL CONTINUE TO MONITOR.
[2018-10-27 04:00] VITALS: BP 124/35
[2018-10-27 05:37] LABS: HEMATOCRIT 26.2 % (42.0-52.0); HEMOGLOBIN 8.4 gm/dL (14.0-18.0); MCH 27.2 pg (26.0-34.0); MCHC 32.2 g/dL (28.0-37.0); MCV 84.3 fL (80.0-100.0); RBC 3.11 mil/uL (4.50-6.00); RDW 16.6 % (10.5-14.5); WBC 6.1 thou/uL (4.0-11.0)
[2018-10-27 05:47] LABS: CALCIUM 8.6 mg/dL (8.5-10.1); MAGNESIUM 1.9 mg/dL (1.8-2.4); POTASSIUM 4.4 mmol/L (3.5-5.1)
[2018-10-27 06:31] LABS: CREATININE 1.9 mg/dL (0.7-1.3)
[2018-10-27 08:47] VITALS: BP 135/76
--- NOTE | 2018-10-27 11:43 | NUR ---
chart review, pt up in room with st and at bedside. pt pleasant and able to make his needs know, ok to visit with griselda. intro to cm, team meetings and transition of care. " live at home, has rollator to use. has oxygen from [facility] emergency department, uses 3-4 L all time. bipap. he not driven in month. he been sleeping in cloths and in recliner chair since his heart surgery. then he will shower and put new clothes on. have 2 steps in from garage and 1 flat patio step into house from front door. i sort out his medication for him"/ and pt. will cont following as needed for dc needs.
--- NOTE | 2018-10-27 16:38 | NUR ---
WOUND CONSULT: PT. WAS SEEN TODAY BY DR. GABRIEL AND MYSELF. PT. IS WELL KNOWN TO THE WOUND CARE TEAM. PT. HAS A BLISTER TO HIS LEFT CALF. THE DRAINAGE IS LESS AND WOUND IS HEALING. RECOMMENDATIONS: CONTINUE WITH CURRENT PLAN OF CARE. PT. AND STAFF NURSE WERE INSTRUCTED ON PLAN OF CARE.
--- NOTE | 2018-10-27 19:23 | NUR ---
ASSUMED CARES AT 0700. PT AWAKE, ORIENTED TO SELF AND PLACE ONLY. PT IS [place] AND HAS SELECTIVE RESPONSES, NOTED THAT HE WAS MORE VERBAL AND COMMUNICATIVE WHEN LEFT THE ROOM BUT MORE WITHDRAWN WHEN WAS AT BEDSIDE. PT HAD AN ANXIETY EPISODE DURING SHIFT CHANGE, HE BECAME UNRESPOSIVE FOR 5 SECS BUT RESUMED CONSCIOUSNESS RIGHT AWAY, VITALS REMAINED STABLE WITH SATS >95%. DENIES PAIN. LS CLEAR/DIMINISHED. Q4H VITALS. ON 2L OXYGEN VIA NC AND BIPAP AT NOC/ WHEN RESTING DURING DAYS. BLISTER ON LEFT CALF CLEANED AND DRESSING CHANGED BY WOUND CARE. AT BEDSIDE. Q1H VISUAL CHECKS. PT UP WITH PIVOT TRANSFERS AND AMBULATED WITH THERAPY. CALL LIGHT WITHIN REACH. FALL PRECAUTIONS IN PLACE
[2018-10-27 19:45] VITALS: BP 141/35
[2018-10-27 22:00] VITALS: BP 148/56
--- NOTE | 2018-10-27 22:55 | NUR ---
PT ASSESSMENT COMPLETED AND VSS. MEDS GIVEN ORDERED AND WELL TOLERATED. SUPPORTIVE AT BEDSIDE. PT AGITATED AT TIMES. ATTEMPED TO HIT STAFF A FEW TIMES. PROVIDED MUCH EMOTIONAL SUPPORT. BIPAP ON AT HS. REPOSITIONED ORDERED. SLEEPING WELL. WILL CONTINUE TO MONITOR FREQUENTLY.
[2018-10-28 00:06] VITALS: BP 144/43
[2018-10-28 03:25] VITALS: BP 142/40
[2018-10-28 08:19] VITALS: BP 147/53
--- NOTE | 2018-10-28 08:38 | NUR ---
RECEIVED ORDER FROM DR. NARVAEZ TO CHANGE VS FROM Q4HR TO Q6HR. WILL CONTINUE TO MONITOR.
--- NOTE | 2018-10-28 14:38 | NUR ---
ASSUMED CARE AT APPROX 0715. PATIENT A/O X3. FORGETFUL AT TIMES. [place]. PATIENT PARTICIPATED IN THERAPY. AT BEDSIDE. WOUND DRESSING TO LLE CHANGED PER ORDERS. THIGH HIGH TUBI TIMBER SELECTOR APPLIED. PATIETN'S LEGS ELEVATED WHILE AT REST. SATS MAINTAINED > OR EQUAL TO 96% ON 3-4 L OF OXYGEN. BLOOD SUGARS MONITORED AND TREATED PER ORDERS. FALL PRECAUTIONS IN PLACE. PATIENT AND SPOUSE EDUCATED ON TURN Q2 REGIMEN AND PRESSURE WOUND PREVENTION. PATIENT CALLS APPROPRIATELY FOR ASSISTANCE. WILL CONTINUE TO MONITOR.
[2018-10-28 19:15] VITALS: BP 144/35
[2018-10-29 02:00] VITALS: BP 147/76
--- NOTE | 2018-10-29 04:01 | NUR ---
ASSUMED CARE OF PT AT 1915. PT ALERT AND ORIENTED X4. VOIDING CLEAR LIGHT YELLOW URINE IN URINAL. DENIES PAIN OR NAUSEA. DYPSNEA NOTED WITH EXERTION. OXYGEN ON AT 3 LITERS BY NASAL CANNULAE, BIPAP PLACED BY RESP TX AT HS. PT REFUSES TO BE REPOSITIONED THROUGH THE NIGHT, STATES HE CAN ONLY SLEEP ON HIS BACK. LANTUS INSULIN HELD AT HS DUE TO BLOOD SUGAR OF 100. PT HAS APPEARED TO BE SLEEPING WHEN CHECKED ON HOURLY ROUNDS. FALL PRECAUTIONS IN PLACE.
[2018-10-29 08:29] VITALS: BP 127/43
--- NOTE | 2018-10-29 18:15 | NUR ---
PATIENT ALERT AND ORIENTED AND ON BIPAP THIS AM. PATIENT TAKEN OFF BIPAP AND PLACED ON O2 NC 4L. SPOUSE AT BEDSIDE FOR ABOUT 1 HOUR THIS AM AND PATIENT USED WALKER TO WALK TO DINING ROOM. AFTER BREAKFAST, PATIENT WALK TO ROOM AND AND SAT ON THE EDGE OF THE BED AND SAID HE COULD NOT BREATH. THE O2 NC WAS TURNED TO 6 LPM AND PATIENT LAYED IN THE BED SEMI-FOWLERS. PATIENT SON CAME AND GAVE PATIENT A DONUT. LUNCH POC GLUCOSE WAS 432. AFTERNOON POC GLUCOSE WAS 240. PATIENT STATED HE THOUGHT IS WAS TUESDAY AND WONDERING WHY REHAB WAS NOT COMING TO HIS ROOM. PATIENT WAS TOLD IT WAS TUESDAY. TUBE PULL THROUGH HOOKER STOCKINGS WERE PLACED ON PATIENT THIS AM. WOUND CARE, ALICIA, SAW PATIENT AND CHANGED DRESSING ON LEFT ALDRICH. WILL SAT IN CHAIR MOST OF THE DAY. SPOUSE RETURNED THIS EVENING AND BROUGHT A DECK OF CARDS.
[2018-10-29 20:00] VITALS: BP 134/43
--- NOTE | 2018-10-30 01:49 | NUR ---
PT ALERT AND ORIENTED X 4, FORGETFUL. CALLS OUT FREQUENTLY FOR NUMEROUS THINGS. 02 ON AT 4L PER NC CONT. BIPAP ON UNTIL 129 WHEN PT REQUESTED IT BE REMOVED BECAUSE HE COULDN'T BREATHE. PT SOB WITH ACTIVITY. BLOOD SUGAR 80 AT HS. PT REFUSED LANTUS INSULIN. SNACK GIVEN TO PT SINCE HE STATED HE WOULD PASS OUT IF HIS BLOOD SUGAR DIDN'T COME UP. PT DENIES PAIN OR DISCOMFORT. BED ALARM ON FOR SAFETY. PT CHECKED ON HOURLY ROUNDS.
[2018-10-30 07:45] VITALS: BP 121/42
[2018-10-30 10:56] VITALS: BP 119/50
--- NOTE | 2018-10-30 11:48 | NUR ---
ASSUMED CARE AT APPROX 0715. REPORTS DIDN'T SLEEP WELL LAST NIGHT AND THINK HE HAD SHOWER LAST NIGHT. PATIENT A/O X3. FORGETFUL AT TIMES. [place]. BS WAS 80 LAST NIGHT PER NIGHT NURSE. BS 108 THIS AM. GAVE 15 UNIT OF LANTUS BUT HELD LISPRO 12. BS 431 NOW. GAVE 12 UNIT OF LIPRO NOW. WILL RECHECK BS AFTER LUNCH BEFORE GIVE 12 UNIT AT LUNCH SCHEDULE. PATIENT PARTICIPATED IN THERAPY. OT GAVE PT SHOWER THIS AM. WOUND DRESSING TO LLE CHANGED PER ORDERS. WOUND LOOKS BETTER. PINK, NO DRAINAGE. THIGH HIGH TUBI WEB PRESS OPERATOR APPLIED. PATIETN'S LEGS ELEVATED WHILE AT REST. SATS MAINTAINED > OR EQUAL TO 99% ON 3-4 L OF OXYGEN. PT REFUSED BIPAP LAST NIGHT. WILL DISCUSS WITH RT TO SEE IF PT STILL NEEDS BIPAP. OFFERED SUPPORTIVE CARE. ENCORUAGED PT TO VOICE HIS NEEDS. PT HAD ONE STARE EPISODE WHEN HE WORKED WITH THERAPIST, VSS. DR. NARVAEZ WAS NOTIFIED COUPLE DAYS AGO. WILL CONTINUE TO MONITOR BLOOD SUGARS AND TREATED PER ORDERS. FALL PRECAUTIONS IN PLACE. PATIENT AND SPOUSE EDUCATED ON TURN Q2 REGIMEN AND PRESSURE WOUND PREVENTION, HAS LITTLE REDNESS IN BOTTOM. PATIENT CALLS APPROPRIATELY FOR ASSISTANCE. WILL CONTINUE TO MONITOR.
[2018-10-30 18:15] VITALS: BP 154/75
[2018-10-30 19:30] VITALS: BP 119/42
--- NOTE | 2018-10-31 02:17 | NUR ---
PT ALERT AND ORIENTED X 4. 02 ON AT 4L PER NC. BIPAP ON SINCE AROUND MIDNIGHT. BLOOD SUGAR 53 AT HS. PT REFUSED LANTUS INSULIN. PEANUT BUTTER AND CRACKERS GIVEN TO PT PER HIS REQUEST. BLOOD SUGAR WENT UP TO 66 AT 2119. PT REQUESTED MORE PEANUT BUTTER AND CRACKERS. BLOOD SUGAR UP TO 74 AT 2141. PT REQUESTED ORANGE JUICE AT THAT TIME. BLOOD SUGAR WENT UP TO 101. PT STATED THAT IT WAS STILL TOO LOW. RECHECKED AT 2218 AND IT WAS 107. APPLE JUICE AND DAVID CRACKERS GIVEN PER PT REQUEST. BLOOD SUGAR 158 AT 2240. PT STATED IT'S COMING UP. PT YELLING OUT AT TIMES STATING I NEED SUGAR. PT NOW APPEARS TO BE SLEEPING. CONT O2 SAT MONITOR ON. BED ALARM ON FOR SAFETY.
[2018-10-31 08:23] VITALS: BP 106/25
--- NOTE | 2018-10-31 11:55 | NUR ---
ASSUMED CARE AT APPROX 0715. NIGHT NURSE SAID PT HAD COUPLE MOMENTS OF CONFUSION BUT SLEPT WELL AFTER THAT. PATIENT A/O X3. FORGETFUL AT TIMES. [place]. BS WAS 53 LAST NIGHT PER NIGHT NURSE. BS 164 THIS AM. GAVE 15 UNIT OF LANTUS, AND LISPRO 12 UNITS. B/P LOW THIS AM. NOTIFIED ELIZABETH AND ADJUST PT'S B/P MEDS. WILL CONTINUE TO MONITOR. PATIENT PARTICIPATED IN THERAPY. OT GAVE PT SHOWER THIS AM. WOUND DRESSING TO LLE C/D/I. THIGH HIGH TUBI HADOOP ADMINISTRATOR APPLIED. PATIETN'S LEGS ELEVATED WHILE AT REST. SATS MAINTAINED > OR EQUAL TO 99% ON 3-4 L OF OXYGEN. OFFERED SUPPORTIVE CARE. ENCOURAGED PT TO VOICE HIS NEEDS. WILL CONTINUE TO MONITOR BLOOD SUGARS AND TREATED PER ORDERS. FALL PRECAUTIONS IN PLACE. PATIENT ON TURN Q2 REGIMEN AND PRESSURE WOUND PREVENTION, HAS LITTLE REDNESS IN BOTTOM. IMPULSIVE AT TIME. INSTRUCTED PT TO CALL BEFORE GET UP. BED/CHAIR ALARM ON. WILL CONTINUE TO MONITOR.
--- NOTE | 2018-10-31 13:07 | NUR ---
team meeting, recommendation: 11/03/18, no driving recommendation, hh ( pt, ot, st, nursing, bath aid and sw). cont with family support.
[2018-10-31 14:19] VITALS: BP 130/41
[2018-10-31 19:30] VITALS: BP 134/47
[2018-11-01 02:04] VITALS: BP 131/47
--- NOTE | 2018-11-01 03:54 | NUR ---
Assumed care of pt at 1914. Pt alert and oriented x4 during the evening, talking with family. Transferred to bed with standby assist of one using gait belt and walker. FSBS at 2053=25, lab draw result=39. Pt was given total of 4 apple juice containers with 2 pkts of sugar each, plus 2 pkgs of crackers with peanut butter to bring FSBS to 107 at 2131. Pt voiding in urinal with assist. Denies pain, dypsnea or nausea. Bipap placed by resp tx at HS. Pt has refused to be repositioned at all during this shift. Has appeared to be sleeping when checked on hourly rounds.
[2018-11-01 04:34] LABS: HEMATOCRIT 24.9 % (42.0-52.0); HEMOGLOBIN 8.1 gm/dL (14.0-18.0); MCHC 32.6 g/dL (28.0-37.0); MCV 82.8 fL (80.0-100.0); RBC 3.01 mil/uL (4.50-6.00); RDW 15.9 % (10.5-14.5); WBC 4.5 thou/uL (4.0-11.0)
[2018-11-01 09:25] VITALS: BP 124/43
[2018-11-01 10:09] VITALS: BP 124/43
--- NOTE | 2018-11-01 11:43 | NUR ---
ASSUMED CARE AT APPROX 0715. NIGHT NURSE REPORTS PT HAS LOW BS LAST NIGHT. LOW 25. PROTOCOL FOLLOWED. BS 162 THIS AM. NOTIFIED ELIZABETH AND HELD LIPRO ORDERED. ELIZABETH ALSO ABOUT PT HAS STARE EPISODES AND MAY ASK NEUROLGIST FOLLOW UP NEED. PT WAS ANXIOUS ABOUT LOW BS AND CREAMING THIS AM THAT HE IS LOW. OFFERED EMOTIONAL SUPPORT. TOOK PT TO DINNING ROOM. PT ATE 100% BREAKFAST. PATIENT A/O X3. FORGETFUL AT TIMES. [place]. PT HAD ONE EPISODE INCONT BLADDER THIS AM. VSS WITH OXYGEN SAT 99% ON 4L. MORNING MEDS GIVEN. LANTUS 15UNITS GIVEN. PATIENT PARTICIPATED IN THERAPY. OT GAVE PT SHOWER THIS AM. WOUND DRESSING TO LLE C/D/I. THIGH HIGH TUBI MEASUREMENT PSYCHOLOGIST APPLIED. PATIETN'S LEGS ELEVATED WHILE AT REST. OFFERED SUPPORTIVE CARE. ENCOURAGED PT TO VOICE HIS NEEDS. WILL CONTINUE TO MONITOR BLOOD SUGARS AND TREATED PER ORDERS. FALL PRECAUTIONS IN PLACE. PATIENT ON TURN Q2 REGIMEN AND PRESSURE PREVENTION, HAS LITTLE REDNESS IN BOTTOM. IMPULSIVE AT TIME. INSTRUCTED PT TO CALL BEFORE GET UP. BED/CHAIR ALARM ON. WILL CONTINUE TO MONITOR.
--- NOTE | 2018-11-01 15:33 | NUR ---
CONSULT CALLED IN FOR SISTER RON: NEURO, SPOKE W/ANSWERING SERVICE, DRE
[2018-11-01 19:02] VITALS: BP 118/37
[2018-11-01 22:14] VITALS: BP 120/50
--- NOTE | 2018-11-02 00:28 | NUR ---
PT ASSESSMENT COMPLETED AND VSS. MEDS GIVEN ORDERED AND WELL TOLERATED. SNACK PROVIDED WITH INSULIN. DSG ON LEFT LEG CHANGED. PT REFUSING TO SLEEP IN BED AT . PT STATES THAT HE SLEEPS IN A CHAIR AT NIGHT AT HOME AND THATS WHAT HE IS GOING TO DO. UP TO THE BATHROOM WITH ASST/GAIT/WALKER. STEADY. SEVERAL TIMES DURING THE NIGHT. SLEEPING. WILL CONTINUE TO MONITOR FREQUENTLY. CHAIR ALARM ON.
--- NOTE | 2018-11-02 06:36 | NUR ---
Patient participated in community reintegration on 11/01/18 WITH SPEECH THERAPY. Refer to documentation by SPEECH THERAPIST.
--- NOTE | 2018-11-02 07:24 | NUR ---
Pt PARTICIPATED IN COMMUNITY REINTEGRATION ON 11/01/[address] P[address] REFER TO ST DOCUMENTATION
[2018-11-02 07:30] VITALS: BP 123/40
--- NOTE | 2018-11-02 09:42 | NUR ---
WOUND FOLLOW UP: PT. WAS SEEN TODAY BY DR. GABRIEL AND MYSELF. PT. WOUND TO HIS LEFT LEG IS HEALING WELL. THERE IS EPITHILIZED TISSUE PRESENT IN THE WOUND BED. PT. LEGS ARE LESS SWOLLEN AT THIS TIME. RECOMMENDATIONS: CONTINUE WITH CURRENT PLAN OF CARE. PT. AND STAFF NURSE WERE INSTRUCTED ON PLAN OF CARE.
--- NOTE | 2018-11-02 16:08 | NUR ---
ASSUMED CARE AT APPROX 0715. PATIENT A/O X3. FORGETFUL. PARTICIPATED IN THERAPY. VSS. UP X1 ASSIST GB, WALKER, CUES FOR O2 TUBING MANAGEMENT. ORDERS RECEIVED FOR PATIENT TO AMBULATE IN ROOM WITH SPOUSE OR STAFF SUPERVISION FOR SAFETY CUES. DENIES PAIN. DRESSING TO LEFT LOWER EXTREMITY CHANGED. TUBI [facility] H[facility]PITALIST IN PLACE. O2 SATS MAINTAINED ON 4L OF OXYGEN, HOME DOES. REFUSES Q2 TURNS/REPOSITIONING WHEN IN CHAIR. REDNESS TO BUTTOX NOTED, BLANCHEABLE, BARRIER CREAM APPLIED, WAFFLE CUSHION ORDERED, PROVIDER NOTIFIED. BLOOD SUGAR MONITORED BEFORE MEALS, TREATED PER ORDERS. PLANNED D/C FRIDAY 11/03. SPOUSE AT BEDSIDE, WILL CONTINUE TO MONITOR.
[2018-11-02 20:50] VITALS: BP 126/43
--- NOTE | 2018-11-03 04:43 | NUR ---
ASSUMED CARE OF PT AT 1915. PT ALERT AND ORIENTED X4. UP IN CHAIR THROUGH THE EVENING. AMBULATES TO BATHROOM WITH SUPERVISION USING WALKER. DENIES PAIN OR NAUSEA. BIPAP PUT ON AT HS BY RESP TX. HAD ONE EPISODE OF FEELLING SHORT OF AIR. BIPAP WAS ON, SATS 97-100%. LUNGS DIMINISHED WITH FEW SCATTERED WHEEZES. NEB TX GIVEN BY RESP TX. OXYGEN CHANGED TO 4 LITERS BY NASAL CANNULAE. SATS REMAIN IN HIGH 90S, NO FURTHER COMPLAINTS. ANTICIPATING DISCHARGE LATER TODAY. CHECKED ON HOURLY ROUNDS.
[2018-11-03 07:15] VITALS: BP 125/79
[2018-11-03] MEDS ORDERED: TYLENOL325 MG PO (08:35)
[2018-11-03] MEDS ORDERED: PREDNISONE 5 MG5 M1 PO (08:37)
--- NOTE | 2018-11-03 10:12 | NUR ---
PT. DISCHARGING TODAY HOME WITH [facility]. NOTIFIED [facility] OF DISCHARGE ORDERS COMPLETE AND THEY WILL NOTIFY PT. OF TIME OF VISITS.
[2018-11-03 10:52] VITALS: BP 124/43
--- NOTE | 2018-11-03 10:59 | NUR ---
ASSUMED CARE OF PT AT 0715. PT IS A&OX4. IS ON 4L OF O2/NC. USES CPAP/BIPAP AT HS. PT HAS HAS HAD SEVERAL EPISODES OF ANXIETY AND STATES "I CAN'T BREATHE". PT'S SPOUSE ENCOURAGES PT TO TAKE DEEP BREATHS THROUGH NOSE & OUT THROUGH MOUTH. PT IS RESTING COMFORTABLY IN BED AWAITING DISCHARGE. IS STABLE. PT IS MOD I IN ROOM WITH FAMILY. HOURLY ROUNDING MAINTAINED. LABS & VITALS REVIEWED. WILL CONTINUE TO MONITOR.
[2018-11-03 11:15] VITALS: BP 124/43
--- NOTE | 2018-11-03 14:55 | NUR ---
PT WAS DISCHARGED THIS AFTERNOON WITH SPOUSE WITH OXYGEN. THIS NURSE DISCUSSED DISCHARGE ORDERS WITH PT & SPOUSE. PT BLOOD GLUCOSE LEVEL WAS 435 PRIOR TO LUNCH. THIS NURSE CONTACTED FRANCISCA JOHNSON & NOTIFIED. ORDERS WERE GIVEN TO GIVE 5 ADDITIONAL UNITS & TO RECHECK GLOCOSE LEVEL IN 2 HOURS. PT WAS NOT WILLING TO WAIT TO HAVE ACCU CHECK RETAKEN. PT'S SPOUSE WAS INSTRUCTED TO RECHECK AT HOME & TREAT ACCORD TO DIRECTIONS. THIS NURSE SPOKE WITH SPOUSE AT 1511 IN WHICH SPOUSE STATED "I AM RECHECKING HIS BLOOD SUGAR NOW". SPOUSE WAS INFORMED THAT THIS NURSE SPOKE WITH [facility] REGARDING WOUND CARE ORDERS. HOME HEALTH NURSE TO COME OUT TOMORROW & ASSESS & TREAT PT ACCORDINGLY. PT/OT/ST TO START NEXT WEEK ACCORDING TO KANE FRONT COUNTER ATTENDANT . THIS NURSE FAXED ORDERS TO OFFICE.
--- NOTE | 2018-11-04 16:26 | HC ---
[facility] [place] [address] CONSULTATION Name: MORGAN ZAIDI RAMON Room #: 503-P [facility] IN M.R.#: [id number] Admission: 10/26/18 ������������������ Attend Phys: Tobias Craig MD Discharge: 11/03/18 ������������������ Date of : 37 Report #: [id number] THIS REPORT FOR: //name// CC: Tobias Craig Aneesh Whittaker DATE OF SERVICE: 10/29/2018 AGE: 83 ATTENDING PHYSICIAN: Tobias Craig MD FLOOR LAYER APPRENTICE: Andrew Madsen PhD CLINICAL PRESENTATION: The patient is an 83-year-old male admitted to the [facility] Rehabilitation Unit for comprehensive inpatient rehabilitation program to improve functional mobility, activities of daily living and self-care and mental status secondary to mental status changes and acute on chronic respiratory failure. He is reported to have been at his home when he experienced an exacerbation of COPD, with difficulty with breathing and became unresponsive. Following acute medical treatment he was admitted to the rehabilitaiton unit. His assessment on admission to rehab included cardiopulmonary debilitation, acute on chronic respiratory failure, acute exacerbation of chronic obstructive pulmonary disease, anemia, mild acute exacerbation of congestive heart failure, acute mental status change with unresponsiveness, coronary artery disease, type 2 diabetes mellitus, hypothyroidism and chronic kidney disease. A complete description of his medical condition and history along with medications can be found in his medical record. Neuropsychological consultation was requested to provide assistance in the assessment of cognitive and emotional status and to provide recommendations and services. Prior to this most recent hospitalization, he was living independently with his in their home. The patient has 4 children. Currently withi him is his and [id number]. He is described as having intermittent periods of irritability toward his because of care that his [id number] requires. The patient is independent with basic activities of daily living but requires assistance with independent activities of daily living. Daily activity is described as very sedentary, although he has continued to drive. He is reported to nap often during the day and has inconsistent sleep through the night. The patient is a high school graduate. 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 [facility] [address] [place] [address] CONSULTATION Name: DYANMORGAN Room #: 503-P [facility] IN M.R.#: [id number] Admission: 10/26/18 ������������������ Attend Phys: Tobias Craig MD Discharge: 11/03/18 ������������������ Date of : 37 Report #: [id number] TECHNIQUES UTILIZED: Clinical interview, review of medical records, staff consultation and behavioral observation, mini mental status exam 2 standard version, clock drawing, verbal fluency assessment and family interview -- side. EXAMINATION FINDINGS: The patient was alert and cooperative with the assessment. He is hard of hearing, which requires increased volume for auditory comprehension. Problems reported include difficulty with his memory and inconsistent sleep. He does not report anxiety or depression. His appetite is within normal limits. He does not have a history of alcohol abuse or treatment for anxiety or depression. His performance on the MMSE 2 brief version is extremely low with a raw score of 10 of 16 and a T score of 15. He was 3/3 for initial registration, 2/5 for orientation to time, 4/[address] and 1/3 for immediate recall of 3 items after a brief time delay and distraction. The patient was not able to accurately indicate the year, season or date. Upon repetition of the year, he still was unable to recall it. His performance improved on the MMSE 2 standard version to a raw score 22 and a T score of 32, which is in the low average range. He was 3/5 for serial sevens, 2/2 for naming, 1/1 for repetition, 3/3 for auditory comprehension. He could read and follow a single command and write a sentence. He was able to copy a simple geometric design. His clock drawing was within normal limits. Letter fluency was in the low average range at the 12th percentile. Category fluency was extremely low with T score of 28 and percentile rank of 1. Deficits in category fluency can often be seen with memory dysfunction along with changes in executive functioning. The patient is presenting with inconsistent orientation, problems with new learning and difficulty with immediate recall. 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 RECOMMENDATIONS: The patient will continue to require assistance in the management of medication, finances and nutrition. Driving should be discontinued until a more thorough evaluation can be provided. I was unable to contact his and family interview was limited to a son. Further information in regard to his level of functioning may be of benefit to clarify his cognitive status. An outpatient neuropsych assessment can also be of benefit to clarify the [facility] [address] [place] [address] CONSULTATION Name: MORGAN ZAIDI Room #: 503-P [facility] IN M.R.#: [id number] Admission: 10/26/18 ������������������ Attend Phys: Tobias Craig MD Discharge: 11/03/18 ������������������ Date of : 37 Report #: [id number] severity of cognitive functioning. A treatment program for neurocognitive disorder may also be of benefit, e.g., use of medication to support memory. Thank you very much for allowing me to provide the consultation on this patient. ��������������������������������������������� <ELECTRONICALLY SIGNED> ���������������������������������������� By: Andrew Madsen, PhD ��������������������������������������������� 11/04/18 1626 1339 [id number] Andrew Madsen, PhD /nt
== END 2018-11-03 14:37 | disposition home health service (06) | DRG 189 ==
LOC: ENTRNSPT 11-03 14:07 → EDTRNSPTSTS 11-03 14:10
PROVIDERS: Nurse Practitioner; Nurse Practitioner Family; ADMIT Physical Medicine & Rehabilitation
PROC: 5A09357 Assistance with Respiratory Ventilation, Less than 24 Consecutive Hours, Continuous Positive Airway Pressure (ICD-10-PCS; principal; 2018-10-26)
PROC: 5A09357 Assistance with Respiratory Ventilation, Less than 24 Consecutive Hours, Continuous Positive Airway Pressure (ICD-10-PCS; 2018-10-28)
PROC: 5A09357 Assistance with Respiratory Ventilation, Less than 24 Consecutive Hours, Continuous Positive Airway Pressure (ICD-10-PCS; 2018-10-29)
PROC: 5A09357 Assistance with Respiratory Ventilation, Less than 24 Consecutive Hours, Continuous Positive Airway Pressure (ICD-10-PCS; 2018-10-31)
PROC: 5A09357 Assistance with Respiratory Ventilation, Less than 24 Consecutive Hours, Continuous Positive Airway Pressure (ICD-10-PCS; 2018-11-02)
DX: J96.21 Acute and chronic respiratory failure with hypoxia (principal); I50.43 Acute on chronic combined systolic (congestive) and diastolic (congestive) heart failure; J44.1 Chronic obstructive pulmonary disease with (acute) exacerbation; I13.0 Hypertensive heart and chronic kidney disease with heart failure and stage 1 through stage 4 chronic kidney disease, or unspecified chronic kidney disease; N17.9 Acute kidney failure, unspecified; D62 Acute posthemorrhagic anemia; K92.2 Gastrointestinal hemorrhage, unspecified; L97.829 Non-pressure chronic ulcer of other part of left lower leg with unspecified severity; G40.89 Other seizures; D64.9 Anemia, unspecified; I25.10 Atherosclerotic heart disease of native coronary artery without angina pectoris; E11.22 Type 2 diabetes mellitus with diabetic chronic kidney disease; N18.9 Chronic kidney disease, unspecified; E03.9 Hypothyroidism, unspecified; F01.50 Vascular dementia, unspecified severity, without behavioral disturbance, psychotic disturbance, mood disturbance, and anxiety; E78.00 Pure hypercholesterolemia, unspecified; E11.622 Type 2 diabetes mellitus with other skin ulcer; G47.33 Obstructive sleep apnea (adult) (pediatric); D69.6 Thrombocytopenia, unspecified; I77.89 Other specified disorders of arteries and arterioles; H91.93 Unspecified hearing loss, bilateral; R53.81 Other malaise; Z95.1 Presence of aortocoronary bypass graft; Z82.49 Family history of ischemic heart disease and other diseases of the circulatory system; Z83.3 Family history of diabetes mellitus; Z88.0 Allergy status to penicillin; Z99.81 Dependence on supplemental oxygen; Z79.02 Long term (current) use of antithrombotics/antiplatelets
CPT/HCPCS: 10112

== ENCOUNTER 2018-11-15 01:17 | Inpatient (IN) | payer OTHER, MEDICARE ==
[2018-11-15] VITALS (44 sets, daily range): BP systolic 105–140; BP diastolic 33–53
[~2018-11-15] VITALS: Ht 177.8 cm; Wt 92.4 kg
[~2018-11-15 01:17] MED LIST changes: +DOXYCYCLINE HYC50 MG PO; +PERCOCET 10-321 EACH PO; +PREDNISONE 20 M20 M1 PO; +PREDNISONE 5 MG5 M1 PO; +TYLENOL325 MG PO
[2018-11-15 01:39] LABS: ABSOLUTE NEUTROPHILS 3.5 thou/uL (1.4-8.2); BASOPHILS 0.6 % (0.0-2.0); HEMATOCRIT 23.6 % (42.0-52.0); HEMOGLOBIN 7.6 gm/dL (14.0-18.0); LYMPHOCYTES 39.3 % (24.0-44.0); MCH 27.2 pg (26.0-34.0); MCHC 32.2 g/dL (28.0-37.0); MCV 84.3 fL (80.0-100.0); PLATELET COUNT 198 thou/uL (150-400); POLYS 52.1 % (36.0-66.0); RDW 16.9 % (10.5-14.5); WBC 6.8 thou/uL (4.0-11.0)
[2018-11-15 01:42] LABS: BE(vivo) -0.2 mmol/L (-2 to +3); HCO3 27.4 mmol/L (22.0-26.0); PCO2 58.6 mmHg (35.0-45.0); PO2 329.5 mmHg (80.0-100.0); sO2 99.7 % (92.0-98.0)
[2018-11-15 01:44] LABS: pH 7.287 (7.360-7.450)
[2018-11-15 01:46] LABS: CALCIUM 8.6 mg/dL (8.5-10.1); CREATININE 3.1 mg/dL (0.7-1.3); POTASSIUM 4.9 mmol/L (3.5-5.1)
[2018-11-15 01:55] LABS: TROPONIN-I 0.38 ng/mL (<0.06)
[2018-11-15 02:02] LABS: URINE BILIRUBIN NEGATIVE (Negative); URINE BLOOD TRACE (Negative); URINE CLARITY CLEAR; URINE COLOR YELLOW; URINE GLUCOSE-RANDOM* NEGATIVE (Negative); URINE KETONES NEGATIVE (Negative); URINE LEUKOCYTES-REFLEX NEGATIVE (Negative); URINE NITRITE-REFLEX NEGATIVE (Negative); URINE PROTEIN (DIPSTICK) 2+ (Negative); URINE SPECIFIC GRAVITY >= 1.030 (1.005-1.035); URINE UROBILINOGEN 0.2 E.U./dl (0.2-1.0)
[2018-11-15 02:55] LABS: SQUAMOUS 0-3 Few /LPF (0-3); URINE RBC 3-10 Few /HPF (0-2); WBC CLUMPS Few (None Seen)
[2018-11-15 02:56] LABS: AMORPHOUS URATES Moderate /LPF (None Seen); BACTERIA-REFLEX >30 Many /HPF (None Seen); CELLULAR CASTS 0-3 Few /LPF (None Seen); HYALINE CASTS 4-10 Moderate /LPF (None Seen); MUCUS 0-3 Light strn/LPF (None Seen)
--- NOTE | 2018-11-15 05:20 | NUR ---
PT TRANSFERRED FROM ED TO ICU 239 @ 0400 WITH DOPAMINE/ABX INFUSING. ASSESSMENT CHARTED. ADMISSION DOCUMENTED. PT IS MOANING AND COMPLAINING OF CHEST DISCOMFORT. ACCORDING TO SPOUSE, HE WAS COMPLAINING OF PAIN PRIOR TO FALLING OVER. FAMILY STATES THAT THE HIS IS ALERT AND ORIENTED AND FORGETFUL BUT NOT ANY DIFFERENT FROM HIS NORMAL SELF. ELISEO LAMP SHADE MAKER WANTS TO TITRATE OFF THE DOPAMINE AND START LEVOFED. FAMILY AT BEDSIDE COMFORTING PATIENT. CALL LIGHT IN REACH. CONTINUE WITH PLAN OF CARE
--- NOTE | 2018-11-15 08:10 | EKG ---
[address] [address] ELECTROCARDIOGRAM REPORT Name: MORGAN ZAIDI Room #: 239-P ADM IN M.R.#: [id number] ������������������ Admission: 11/15/18 ������������������ Attend Phys: Vince Calles MD Discharge: ������������������ Date of : 37 Report #: [id number] ����������������������������������������������������������������� [id number] THIS REPORT FOR: //name// [facility] ED Test Date: 2018-11-15 Test Time: 01:20:27 Pat Name: MORGAN ZAIDI Department: Room: 239 Gender: M Cafe Associate: ADINA : 1935 Requested By: Jovan Polk Order Number: [id number] MD: Sedrick Lujan Measurements Intervals [place] Rate: 72 P: 0 NE: QRS: 59 QRSD: 106 T: 200 QT: 339 QTc: 371 Interpretive Statements Atrial fibrillation Ventricular premature complex LVH with repolarization abnormalities similar to prior EKGs Electronically Signed On 11-15-2018 8:10:13 CDT by Sedrick Lujan [email or web address] ��������������������������������������������� <ELECTRONICALLY SIGNED> ���������������������������������������� By: Sedrick Lujan MD ��������������������������������������������� 11/15/18 0810 012 0120 Sedrick Lujan MD /SHAWNA
--- NOTE | 2018-11-15 12:24 | 2DMMODE ---
[facility] [place] [address] 2 D/M-MODE ECHOCARDIOGRAM Name: DYANMORGAN RAMON Room #: 239-P [facility] IN ..#: [id number] ������������� Admission: 11/15/18 ������������� Attend Phys: Vince Calles MD Discharge: ��� ������������� ��� Date of : 39 Date of Service: 11/15/18 1224 �� Report #: [id number] �������� ��������������������������������������������[id number] THIS REPORT FOR: //name// APPROVED REPORT Study performed: 11/15/2018 10:07:03 EXAM: Limited 2D, Doppler, and color-flow Echocardiogram Patient Location: ICU Room #: 239 Status: routine BSA: 2.10 HR: 67 bpm BP: 123/51 mmHg Rhythm: Atrial Fibrillation Other Information Study Quality: Good Indications Cardiac arrest. Hx: CT, CABG, cardiomyopathy, Afib, COPD, htn, hlp, dm. 2D Dimensions RVDd: 49.42 mm LVOT Diam: 22.93 (18-24mm) LVDd: 56.45 mm LVDs: 47.51 (25-40mm) Aortic Valve AoV Peak Allen.: 2.79 m/s AO Peak Gr.: 31.16 mmHg LVOT Max P.36 mmHg AO Mean Gr.: 20.46 mmHg AO V2 Mean: 2.18 m/s LVOT Max V: 1.04 m/s AO V2 VTI: 73.57 cm GILL Vmax: 1.54 cm2 Tricuspid Valve TR Peak Allen.: 3.44 m/s RAP Estimate: 10.00 mmHg TR Peak Gr.: 47.23 mmHg PA Pressure: 57.00 mmHg Left Ventricle The left ventricle is normal size. Left ventricular systolic function is moderately decreased. LVEF 35%. [facility] [address] [place] [address] 2 D/M-MODE ECHOCARDIOGRAM Name: MORGAN ZAIDI RAMON Room #: 239-[facility] IN [facility].#: [id number] ������������� Admission: 11/15/18 ������������� Attend Phys: Vince Calles MD Discharge: ��� ������������� ��� Date of : 39 Date of Service: 11/15/18 1224 �� Report #: [id number] �������� ��������������������������������������������[id number] Right Ventricle Right ventricle is dilated. Right ventricle is hypokinetic. Atria Left atrium is dilated. Right atrium is dilated. Aortic Valve Aortic valve is calcified. Trace aortic regurgitation. Calculated aortic valve area is 1.5 cm2 with maximum pressure gradient of 31 mmHg and mean pressure gradient of 20 mmHg. Mitral Valve Mild mitral annular calcification. Mild to moderate mitral regurgitation. Tricuspid Valve The tricuspid valve is normal in structure. Moderate tricuspid regurgitation. Estimated PAP is 60mmHg. Great Vessels IVC is dilated and collapses <50% with inspiration. Pericardium There is no pericardial effusion. <Conclusion> Left ventricular systolic function is moderately decreased. LVEF 35%. Both atria are dilated. Aortic valve is calcified. Calculated aortic valve area is 1.5 cm2 with maximum pressure gradient of 31 mmHg and mean pressure gradient of 20 mmHg. Mild mitral annular calcification. Mild to moderate mitral regurgitation. Moderate tricuspid regurgitation. Estimated pulmonary artery pressure of 60mmHg. There is no pericardial effusion. ��������������������������������������������� <ELECTRONICALLY SIGNED> ���������������������������������������� By: Andrew Interiano MD, FACC ��������������������������������������������� 11/15/18 1224 1224 1224 Andrew Interiano MD, FACC /INF
--- NOTE | 2018-11-15 14:57 | NUR ---
Case opened to follow for dc planning. Pt is currently in ICU on Bipap. Field Contractor visited with the pt's son Michael at bedside. Spouse stepped out to get some lunch. Pt's son reports that the pt has been at home with hh since his dc from [facility] on 11/03/18. [facility] has been seeing him for nursing and therapy. He got a home trilogy unit a week ago. Prior to that he was using his bipap and o2 setup. He was up to the bathroom and dining room with his rolator walker only. His mobility was limited by sob and feeling like he couldn't breath. He sleeps in his recliner a lot. He has 2 steps in to the home through the garage. His and son take him to the doctor and manage the cooking and errands. Support provided. [facility] aware of his admission and can resume at ut. Will follow.
--- NOTE | 2018-11-15 17:30 | NUR ---
ASSUMED CARE OF PT AT 0700 THIS SHIFT. PT HAS BEEN COOPERATIVE, WITH BURSTS OF ANXIETY FROM TIME TO TIME, BUT IS REORIENTED WITH FAMILY AND NURSING ENCOURAGEMENT. PT HAS STATED THAT HE FEELS TIRED MULTIPLE TIMES THIS SHIFT, DENIED PAIN. PT HAS BEEN ON BIPAP THIS SHIFT, TOLERATING IT WELL, CURRENTLY RESTING COMFORTABLY IN ROOM. PT WAS TITRATED OFF DOPAMINE PER CARDIOLOGY, HOWEVER PT WAS STARTED ON LEVOPHED GTT FOR PRESSURE SUPPORT. ONE OF PT'S PERIPHERAL IVs INFILTRATED, NURSING TALKED TO FAMILY ABOUT CENTRAL LINE PLACEMENT, FAMILY DOES NOT GIVE CONSENT FOR IV TEAM, HOWVER AGRREABLE FOR IR TO PLACE CENTRAL LINE TOMORROW. PT HAS HAD VISITORS THIS SHIFT, EDUCATION WAS PROVIDED. PLAN OF CARE IS TO CONTINUE TO MONITOR PT CLOSELY AT THIS TIME.
--- NOTE | 2018-11-15 17:44 | NUR ---
VASCULAR ACCESS CONSULTED FOR CVAD, DISCUSSED WITH PT'S INSERTION OF IJ AND SHE REFUSED TO HAVE IJ. WANTS IR TO PLACE TICC LINE TOMORROW IN CHEST DOES NOT WANT PLACEMENT IN NECK. ORDER PLACED FOR IR IN AM. MOISES FRYE AWARE OF 'S REQUEST
[2018-11-16] VITALS (37 sets, daily range): BP systolic 103–138; BP diastolic 33–52
--- NOTE | 2018-11-16 03:23 | NUR ---
PT WAS ON BIPAP MOST OF THE NIGHT AND SPOUSE WAS WANTING TO TRY PT ON NC. PT CURRENTLY ON 4LS SATING 95% AND HIGHER. PT STILL MOANING AND RESTLESS BUT PER FAMILY IS NOT ANY DIFFERENT FROM HIS NORMAL SELF. ASSESSMENT CHARTED. PT STILL NPO WAITING FOR IR FOR CENTRAL LINE PLACEMENT TODAY. PT STILL ON LOW RATE OF LEVOPHED. PT HAD RESULTED FOR POSTIVE BLOOD CULTURES OF GRAM + COCCI. HOSPITAL J2EE JAVA DEVELOPER NOTIFIED. SPOUSE AT BEDSIDE COMFORTING PT. CONTINUE WITH PLAN OF CARE.
[2018-11-16 04:49] LABS: HEMATOCRIT 22.5 % (42.0-52.0); HEMOGLOBIN 7.3 gm/dL (14.0-18.0); MCH 26.8 pg (26.0-34.0); MCHC 32.4 g/dL (28.0-37.0); MCV 82.9 fL (80.0-100.0); RBC 2.71 mil/uL (4.50-6.00); RDW 16.7 % (10.5-14.5); WBC 3.4 thou/uL (4.0-11.0)
[2018-11-16 05:00] LABS: ALBUMIN 2.1 g/dL (3.4-5.0); CALCIUM 8.7 mg/dL (8.5-10.1); CREATININE 3.4 mg/dL (0.7-1.3); PHOSPHORUS 6.3 mg/dL (2.5-4.9); POTASSIUM 4.8 mmol/L (3.5-5.1)
[2018-11-16 06:03] LABS: INR 1.2; PROTIME 12.3 Seconds (9.3-11.4)
--- NOTE | 2018-11-16 08:05 | EKG ---
[address] [place] [address] ELECTROCARDIOGRAM REPORT Name: DYANMORGAN NAVARRO Room #: 239-P ADM IN M.R.#: [id number] ������������������ Admission: 11/15/18 ������������������ Attend Phys: Vince Calles MD Discharge: ������������������ Date of : 37 Report #: [id number] ����������������������������������������������������������������� [id number] THIS REPORT FOR: //name// [facility] Test Date: 2018-11-16 Test Time: 07:31:02 Pat Name: MORGAN ZAIDI Department: Room: 239 P Gender: M First Coat Sander: : 1935 Requested By: Malka Clemons Order Number: [id number] MD: Andrew Interiano Measurements Intervals [place] Rate: 65 P: -68 AK: 231 QRS: 36 QRSD: 100 T: 169 QT: 398 QTc: 414 Interpretive Statements Sinus or ectopic atrial rhythm Prolonged AK interval Repol abnrm suggests ischemia, diffuse leads Compared to ECG 11/15/2018 01:20:27 sinus rhythm has replaced atrial fibrillation Electronically Signed On 11-16-2018 8:05:16 CDT by Andrew Interiano [email or web address] ��������������������������������������������� <ELECTRONICALLY SIGNED> ���������������������������������������� By: Andrew Interiano MD, [facility] ��������������������������������������������� 11/16/18 0805 0731 Andrew Interiano MD, [facility] /EPI
--- NOTE | 2018-11-16 09:28 | NUR ---
If npo status to continue over next 48 hr, may want to consider start of enteral nutrition-recommend glucerna 1.2 goal of 55ml/hr
[2018-11-16 16:23] LABS: BE(vivo) 1.9 mmol/L (-2 to +3); HCO3 27.5 mmol/L (22.0-26.0); PCO2 48.4 mmHg (35.0-45.0); PO2 78.6 mmHg (80.0-100.0); pH 7.372 (7.360-7.450); sO2 95.2 % (92.0-98.0)
--- NOTE | 2018-11-16 18:01 | NUR ---
PATIENT ALERT AND ORIENTED TO SELF AND SITUATION. FOLLOWS COMMANDS. 3L NASAL CANNULA WHILE AWAKE, BIPAP FOR NAPS AND AT NIGHT. SINUS BRADYCARDIA TO SINUS RHYTHM ON CARE COORDINATION MANAGER. FORBES PATIENT AND DRAINING. RIGHT TICC LINE IN PLACE. LEVOFED DISCONNECTED AT 0700, MAP REMAINED ABOVE 60. BLOOD SUGAR MONITORED. PATIENT TOLERATING ORDERED DIET. FAMILY AND PATIENT UPDATED ON THE PLAN OF CARE, NO SIGNS OF ACUTE DISTRESS NOTED AT THIS TIME. WILL CONTINUE TO MONITOR.
[2018-11-17] VITALS (22 sets, daily range): BP systolic 110–151; BP diastolic 34–61
--- NOTE | 2018-11-17 04:47 | NUR ---
PT AOX2, CONFUSED AND RESTLESS AT TIMES. PT SHOUTS OUT WHEN IS NOT PRESENT AT BEDSIDE. EDUCATED PT ABOUT CALL LIGHT USAGE. ON 4L NC, O2 SATS ABOVE 90% WHILE AT REST. PT DIDN'T TOLERATE THE BIPAP ON. C/O NONCARDIAC CHEST PAIN D/T PREVIOUS CHEST COMPRESSIONS. PAIN MEDS AND LIDOCAINE PATCH ORDERED PER DISINTEGRATOR FEEDER. FORBES IN PLACE. OUTPUT NOTED. NO COMPLAINS PRESENTLY. WILL CONTINUE TO MONITOR.
[2018-11-17 04:52] LABS: HEMOGLOBIN 6.7 gm/dL (14.0-18.0)
[2018-11-17 04:54] LABS: HEMATOCRIT 20.5 % (42.0-52.0); MCH 26.9 pg (26.0-34.0); MCHC 32.6 g/dL (28.0-37.0); MCV 82.4 fL (80.0-100.0); RBC 2.48 mil/uL (4.50-6.00); RDW 16.6 % (10.5-14.5); WBC 3.2 thou/uL (4.0-11.0)
[2018-11-17 04:58] LABS: ALBUMIN 1.8 g/dL (3.4-5.0); CALCIUM 8.2 mg/dL (8.5-10.1); CREATININE 3.3 mg/dL (0.7-1.3); PHOSPHORUS 4.9 mg/dL (2.5-4.9); POTASSIUM 4.3 mmol/L (3.5-5.1)
[2018-11-17 13:56] LABS: HEMATOCRIT 23.9 % (42.0-52.0); HEMOGLOBIN 7.9 gm/dL (14.0-18.0)
--- NOTE | 2018-11-17 17:14 | NUR ---
TRANSFERRED FROM ICU TO TODAY. P.T. NEEDS TO EVAL FOR DC PLANNING. PT LIVES HOME WITH SPOUSE, HAS NEEDED DME AT HOME INCLUDING O2, TRILOGY, WALKER AND HOME HEALTH THRU [facility] SINCE 11/13/18. IF DC HOME OVER W/E WILL [facility].
--- NOTE | 2018-11-17 17:32 | NUR ---
PT CARE ASSUMED APPROX 1600 ON TRANSFER FROM ICU. PT ALERT AND ORIENTED TO SELF AND PLACE. CONFUSED WITH MOST CONVERSATION. FORGETFULL. VSS. BS ELEVATED AC DINNER. HIGH DOSE SSI USED TO MANAGE. DENIES PAIN AND SOA. SPOUSE AT BEDSIDE AT THIS TIME. BOTH DENY QUESTIONS OR CONCERNS REGARDING POC. FORBES PATENT. NO DISTRESS NOTED.
[2018-11-18 00:45] VITALS: BP 130/39
[2018-11-18 04:00] VITALS: BP 149/58
[2018-11-18 06:32] LABS: HEMATOCRIT 24.3 % (42.0-52.0); HEMOGLOBIN 7.9 gm/dL (14.0-18.0); MCH 26.7 pg (26.0-34.0); MCHC 32.7 g/dL (28.0-37.0); MCV 81.8 fL (80.0-100.0); RBC 2.97 mil/uL (4.50-6.00); RDW 17.5 % (10.5-14.5); WBC 3.5 thou/uL (4.0-11.0)
[2018-11-18 06:40] LABS: ALBUMIN 2.2 g/dL (3.4-5.0); CALCIUM 8.3 mg/dL (8.5-10.1); CREATININE 3.2 mg/dL (0.7-1.3); PHOSPHORUS 4.5 mg/dL (2.5-4.9); POTASSIUM 4.3 mmol/L (3.5-5.1)
[2018-11-18 07:50] VITALS: BP 148/61
--- NOTE | 2018-11-18 08:23 | NUR ---
ASSUME CARE 1900. PT/VITALS STABLE. DENIES ANY PAIN. MILDLY TOLERATES ACTIVITY. COMPLAINS OF DIZZINESS WITH WALKING. ASSESSMENT CHARTED. ADEQUATE REST NOTED THROUGH THE NIGHT. PROGRESSING MODERATELY WITH POC. PLAN IS TO CONTINUE WITH ANTIBIOTICS AND MONITOR LABS FOR GENRALIZED IMPROVEMENT. WILL CONTINUE TO MONITOR AND FOLLOW WITH POC.
[2018-11-18] MEDS ORDERED: PACERONE 200 M200 M1 PO (13:00)
[2018-11-18] MEDS ORDERED: PREDNISONE 10 M10 MG PO (13:03)
[2018-11-18] MEDS ORDERED: KEFLEX500 M1 PO (13:03)
[2018-11-18 13:59] VITALS: BP 148/61
--- NOTE | 2018-11-18 14:26 | NUR ---
ASSESSMENT DOCUMENTED. VSS. PT DENIED HAVING PAIN OR DISCOMFORT. SEEN BY DR. PATEL, DR. IYER, DR. SHEIKH. AND DR. GALLAGHER. ORDERS GIVEN TO DISCHARGE PT TO HOME WITH HOME HEALTH. DR. GALLAGHER OK PT TO GO HOME WITH CENTRAL LINE AND COME BACK ON TUESDAY TO BE TAKEN OUT BY RADIOLOGY. AND SON AWARE. IV TEAM GAVE TEACHING TO THE FAMILY AND THE PATIENT ABOUT THE CENTRAL LINE. DISCHARGE INSTRUCTIONS GIVEN TO THE PATIENT AND THE FAMILY. PATIENT LEFT THE FACILITY ACCOMPANIED BY THE AND THE SONS.
--- NOTE | 2018-11-23 09:37 | HC ---
[facility] [place] [address] CONSULTATION Name: DYANMORGAN RAMON Room #: 217-P [facility] IN M.R.#: [id number] Admission: 11/15/18 ������������������ Attend Phys: Vince Calles MD Discharge: 11/18/18 ������������������ Date of : 39 Report #: [id number] THIS REPORT FOR: //name// CC: Vince Whittaker DATE OF SERVICE: 11/15/2018 REASON FOR CONSULTATION: Elevated creatinine. REASON FOR PRESENTATION: Shortness of breath. HISTORY OF PRESENT ILLNESS: The history was obtained from the medical chart. The patient is currently not able to provide me with the details of the history. He was on a recliner yesterday, he got up from his recliner and suddenly fell after complaining of shortness of breath. He was unresponsive. She called the son. EMS was called. EMS started CPR as the patient was pulseless. Currently, the patient started to wake up. He was awake and talking after his presentation to the Emergency Room. It looks like that he had an apneic spell and a pulseless spell. The patient was extubated in the Emergency Room and was placed on CPAP. On presentation to the Emergency Room, he was found to have an elevated creatinine of 3.1. The patient is well known to have chronic kidney disease. His baseline creatinine is around 2.0. There are reports of extreme hypotension with blood pressure being all the way down to 50/30. Currently, he is on the CPAP and he is not able to provide me with history. PAST MEDICAL HISTORY: Extensive and includes the followin. Coronary artery disease. 2. COPD. 3. Diabetes mellitus. 4. Chronic kidney disease with a baseline creatinine of around 2.0. 5. Status post CABG. 6. Anemia. 7. Obstructive sleep apnea. 8. Status post left hip open reduction and internal fixation. 9. Depression. FAMILY HISTORY: Significant for hypertension and diabetes mellitus. SOCIAL HISTORY: Unobtainable given the patient's mental status. REVIEW OF SYSTEMS: Unobtainable given the patient's mental status and the fact that he is currently maintained on CPAP. MEDICATIONS: Listed amongst his medications: [facility] [address] [place] [address] CONSULTATION Name: DYANMORGAN RAMON Room #: 217-P [facility] IN [facility].#: [id number] Admission: 11/15/18 ������������������ Attend Phys: Vince Calles MD Discharge: 11/18/18 ������������������ Date of : 39 Report #: [id number] 1. Ferrous sulfate. 2. Atorvastatin. 3. Metoprolol. 4. Torsemide. 5. Prednisone. 6. Levothyroxine. stated that he had been prescribed some new medications including Lexapro for anxiety. He also received Ativan before the event happened. PHYSICAL EXAMINATION: VITAL SIGNS: On CPAP and dopamine infusion. Blood pressure is 123/51. HEAD AND NECK: No jugular venous distention. CHEST: Bilateral crackles. CARDIOVASCULAR: No rub detected. ABDOMEN: Soft, nontender. LOWER EXTREMITIES: Edema present. LABORATORY DATA: Creatinine is 3.1, sodium is 136, potassium is 4.9, BUN is 116. ASSESSMENT, IMPRESSION, PLAN: 1. Acute kidney injury. 2. Chronic kidney disease. 3. Post-cardiac event with no clear details. 4. Post-respiratory arrest. 5. CO2 retention. 6. Respiratory failure. 7. Hypotension. 8. From the renal perspective, his worsening creatinine is expected given his hypotension. He is currently maintained on dopamine. He will need gentle diuresis given his heart failure. 9. Discontinue IV fluids. 10. Cardiology is addressing his cardiac issues. 11. Sluggish urine output. We will give a one-time dose Lasix. 12. Optimize his hemodynamics and that will help in improving his renal perfusion and get his creatinine to his baseline. 13. We will continue to follow along. ��������������������������������������������� <ELECTRONICALLY SIGNED> ���������������������������������������� By: Saud Pagan MD ��������������������������������������������� 11/23/18 0937 0923 0010 Saud Pagan MD /nt
== END 2018-11-18 14:19 | disposition home health service (06) | DRG 871 ==
LOC: ER 01:17 → ICU 03:19 → EROBS 03:19 → ICU 03:36 → 2N 11-17 15:56
PROVIDERS: Emergency Medicine; Hospitalist; Internal Medicine Pulmonary Disease; Nurse Practitioner Adult Health; Nurse Practitioner Family; Radiology Diagnostic Radiology; ADMIT Hospitalist
PROC: 5A09357 Assistance with Respiratory Ventilation, Less than 24 Consecutive Hours, Continuous Positive Airway Pressure (ICD-10-PCS; principal; 2018-11-15)
PROC: 5A09357 Assistance with Respiratory Ventilation, Less than 24 Consecutive Hours, Continuous Positive Airway Pressure (ICD-10-PCS; 2018-11-16)
PROC: 30233N1 Transfusion of Nonautologous Red Blood Cells into Peripheral Vein, Percutaneous Approach (ICD-10-PCS; 2018-11-17)
DX: A41.89 Other specified sepsis (principal); I46.9 Cardiac arrest, cause unspecified; J96.21 Acute and chronic respiratory failure with hypoxia; I50.43 Acute on chronic combined systolic (congestive) and diastolic (congestive) heart failure; J96.22 Acute and chronic respiratory failure with hypercapnia; N17.9 Acute kidney failure, unspecified; E87.2 Acidosis; J44.1 Chronic obstructive pulmonary disease with (acute) exacerbation; I47.1 Supraventricular tachycardia; I13.0 Hypertensive heart and chronic kidney disease with heart failure and stage 1 through stage 4 chronic kidney disease, or unspecified chronic kidney disease; N39.0 Urinary tract infection, site not specified; R65.20 Severe sepsis without septic shock; I25.10 Atherosclerotic heart disease of native coronary artery without angina pectoris; N18.9 Chronic kidney disease, unspecified; G47.33 Obstructive sleep apnea (adult) (pediatric); F32.9 Major depressive disorder, single episode, unspecified; I95.9 Hypotension, unspecified; E78.5 Hyperlipidemia, unspecified; F41.9 Anxiety disorder, unspecified; D50.9 Iron deficiency anemia, unspecified; I65.29 Occlusion and stenosis of unspecified carotid artery; E78.00 Pure hypercholesterolemia, unspecified; I48.2 Chronic atrial fibrillation; E11.22 Type 2 diabetes mellitus with diabetic chronic kidney disease; Z86.010 Personal history of colon polyps; Z87.81 Personal history of (healed) traumatic fracture; Z95.1 Presence of aortocoronary bypass graft; Z98.42 Cataract extraction status, left eye; Z98.41 Cataract extraction status, right eye; I25.2 Old myocardial infarction; Z88.0 Allergy status to penicillin; Z87.891 Personal history of nicotine dependence; Z82.49 Family history of ischemic heart disease and other diseases of the circulatory system; Z83.3 Family history of diabetes mellitus
CPT/HCPCS: 10078; 10081

== ENCOUNTER → 2018-11-21 | Outpatient (CLI) | payer OTHER, MEDICARE ==
[~2018-11-21] MED LIST changes: +KEFLEX500 M1 PO; +PACERONE 200 M200 M1 PO
--- NOTE | 2018-11-21 09:36 | NUR ---
PT ARRIVED FOR TICC LINE REMOVAL. PT REQUESTS TO STAY UPRIGHT IN WHEELCHAIR. WRITTEN CONSENT FOR REMOVAL OF TICC OBTAINED PER PT WITH AT BEDSIDE. VSS. DR. DANIELLE IN TO SEE PT AT BEDSIDE. JUDITH MCCARTHY ADMINISTERS LIDOCAINE TO SKIN AND REMOVES LINE WITH OUT ANY DIFFICULTY AND PRESSURE HELD FOR 10 MIN. SITE COVERED WITH STERILE DRSG. NO HEMATOMA. PT PLEASED TO HAVE THIS DONE AT BEDSIDE AND UPRIGHT. HOME O2 AT 4L/NC AND HOME WITH PER WC. DRSG TO RIGHT UPPER CHEST REMAINS CDI.
== END | disposition home or self-care (01) ==
LOC: SPEC 06:16
DX: Z45.2 Encounter for adjustment and management of vascular access device (principal); E11.22 Type 2 diabetes mellitus with diabetic chronic kidney disease; J44.1 Chronic obstructive pulmonary disease with (acute) exacerbation; N18.6 End stage renal disease; I50.9 Heart failure, unspecified; N39.0 Urinary tract infection, site not specified; Z88.0 Allergy status to penicillin; Z79.899 Other long term (current) drug therapy; Z98.890 Other specified postprocedural states

== ENCOUNTER 2018-12-10 14:12 | Emergency (ER) | payer OTHER, MEDICARE ==
[~2018-12-10] VITALS: Ht 175.3 cm; Wt 87.1 kg
[2018-12-10 15:00] LABS: ABSOLUTE NEUTROPHILS 3.3 thou/uL (1.4-8.2); BASOPHILS 0.6 % (0.0-2.0); EOSINOPHILS 2.4 % (0.0-3.0); HEMOGLOBIN 8.1 gm/dL (14.0-18.0); LYMPHOCYTES 16.3 % (24.0-44.0); MCH 27.1 pg (26.0-34.0); MCHC 32.2 g/dL (28.0-37.0); MCV 83.9 fL (80.0-100.0); PLATELET COUNT 150 thou/uL (150-400); POLYS 70.7 % (36.0-66.0); RBC 2.98 mil/uL (4.50-6.00); RDW 20.1 % (10.5-14.5); WBC 4.7 thou/uL (4.0-11.0)
[2018-12-10 15:10] LABS: CALCIUM 8.6 mg/dL (8.5-10.1); CREATININE 3.5 mg/dL (0.7-1.3); POTASSIUM 4.6 mmol/L (3.5-5.1)
[2018-12-10 15:19] LABS: ALBUMIN 2.3 g/dL (3.4-5.0); TOTAL BILIRUBIN 0.3 mg/dL (<0.1-1.0); TOTAL PROTEIN 5.9 g/dL (6.4-8.2); TROPONIN-I 0.09 ng/mL (<0.06)
[2018-12-10] MEDS ORDERED: BACTRIM DS TAB1 EACH PO (18:30)
[2018-12-10 18:54] VITALS: BP 133/45
--- NOTE | 2018-12-10 21:17 | EKG ---
[place] [address] [facility] [employer] [address] ELECTROCARDIOGRAM REPORT Name: MORGAN ZAIDI Room #: DEP Eliza#: [id number] ������������������ Admission: 12/10/18 ������������������ Attend Phys: Discharge: 12/10/18 ������������������ Date of : 39 Report #: [id number] ����������������������������������������������������������������� [id number] THIS REPORT FOR: //name// [facility] ED Test Date: 2018-12-10 Test Time: 15:10:48 Pat Name: MORGAN ZAIDI Department: Room: Gender: M Rn Embedded: KKODJOVI : 1935 Requested By: Yasmin Bhardwaj Order Number: [id number] MD: Sedrick Lujan Measurements Intervals [place] Rate: 64 P: -86 MS: 396 QRS: 27 QRSD: 89 T: 195 QT: 393 QTc: 406 Interpretive Statements Sinus or ectopic atrial rhythm Prolonged [place] interval Probable LVH with secondary repol abnrm Compared to ECG 11/16/2018 07:31:02 Possible ischemia no longer present Electronically Signed On 12-10-2018 21:16:55 CDT by Sedrick Lujan [email or web address] ��������������������������������������������� <ELECTRONICALLY SIGNED> ���������������������������������������� By: Sedrick Lujan MD ��������������������������������������������� 12/10/18 2116 1510 151 Sedrick Lujan MD /[facility]
== END 2018-12-10 18:55 | disposition home or self-care (01) ==
LOC: ER 14:12
PROVIDERS: Nurse Practitioner Family
DX: R60.0 Localized edema (principal); J96.11 Chronic respiratory failure with hypoxia; J44.9 Chronic obstructive pulmonary disease, unspecified; I25.10 Atherosclerotic heart disease of native coronary artery without angina pectoris; I48.91 Unspecified atrial fibrillation; E11.9 Type 2 diabetes mellitus without complications; I50.32 Chronic diastolic (congestive) heart failure; Z88.0 Allergy status to penicillin; Z95.1 Presence of aortocoronary bypass graft; Z79.4 Long term (current) use of insulin; Z87.891 Personal history of nicotine dependence

== ENCOUNTER → 2018-12-13 | Outpatient (CLI) | payer OTHER, MEDICARE ==
[~2018-12-13] MED LIST changes: +BACTRIM DS TAB1 EACH PO
== END ==
LOC: HYPER 06:46
DX: E11.622 Type 2 diabetes mellitus with other skin ulcer (principal); L97.811 Non-pressure chronic ulcer of other part of right lower leg limited to breakdown of skin; L97.821 Non-pressure chronic ulcer of other part of left lower leg limited to breakdown of skin; L89.312 Pressure ulcer of right buttock, stage 2; L98.411 Non-pressure chronic ulcer of buttock limited to breakdown of skin; I87.2 Venous insufficiency (chronic) (peripheral); E11.22 Type 2 diabetes mellitus with diabetic chronic kidney disease; I12.9 Hypertensive chronic kidney disease with stage 1 through stage 4 chronic kidney disease, or unspecified chronic kidney disease; N18.9 Chronic kidney disease, unspecified; I65.23 Occlusion and stenosis of bilateral carotid arteries; I25.10 Atherosclerotic heart disease of native coronary artery without angina pectoris; I27.20 Pulmonary hypertension, unspecified; K21.9 Gastro-esophageal reflux disease without esophagitis; G47.30 Sleep apnea, unspecified; E78.00 Pure hypercholesterolemia, unspecified; J44.9 Chronic obstructive pulmonary disease, unspecified; F41.9 Anxiety disorder, unspecified; Z79.4 Long term (current) use of insulin; Z79.01 Long term (current) use of anticoagulants; Z86.73 Personal history of transient ischemic attack (TIA), and cerebral infarction without residual deficits; Z87.891 Personal history of nicotine dependence

== ENCOUNTER → 2018-12-27 | Outpatient (CLI) | payer OTHER, MEDICARE | LOC: HYPER 06:37 | DX: E11.622 Type 2 diabetes mellitus with other skin ulcer (principal); L89.312 Pressure ulcer of right buttock, stage 2; L98.411 Non-pressure chronic ulcer of buttock limited to breakdown of skin; L97.811 Non-pressure chronic ulcer of other part of right lower leg limited to breakdown of skin; L97.821 Non-pressure chronic ulcer of other part of left lower leg limited to breakdown of skin; E11.22 Type 2 diabetes mellitus with diabetic chronic kidney disease; I12.9 Hypertensive chronic kidney disease with stage 1 through stage 4 chronic kidney disease, or unspecified chronic kidney disease; N18.9 Chronic kidney disease, unspecified; E78.00 Pure hypercholesterolemia, unspecified; R60.0 Localized edema; G47.33 Obstructive sleep apnea (adult) (pediatric); I25.810 Atherosclerosis of coronary artery bypass graft(s) without angina pectoris; I87.2 Venous insufficiency (chronic) (peripheral); I65.23 Occlusion and stenosis of bilateral carotid arteries; I27.20 Pulmonary hypertension, unspecified; J44.9 Chronic obstructive pulmonary disease, unspecified; K21.9 Gastro-esophageal reflux disease without esophagitis; Z86.73 Personal history of transient ischemic attack (TIA), and cerebral infarction without residual deficits; F41.9 Anxiety disorder, unspecified; Z79.4 Long term (current) use of insulin; Z79.01 Long term (current) use of anticoagulants; Z87.891 Personal history of nicotine dependence ==

== ENCOUNTER → 2019-01-22 | Outpatient (CLI) | payer OTHER, MEDICARE | LOC: HYPER 06:37 | DX: E11.622 Type 2 diabetes mellitus with other skin ulcer (principal); L89.312 Pressure ulcer of right buttock, stage 2; L98.411 Non-pressure chronic ulcer of buttock limited to breakdown of skin; L97.821 Non-pressure chronic ulcer of other part of left lower leg limited to breakdown of skin; S90.812A Abrasion, left foot, initial encounter; E11.22 Type 2 diabetes mellitus with diabetic chronic kidney disease; N18.9 Chronic kidney disease, unspecified; I12.9 Hypertensive chronic kidney disease with stage 1 through stage 4 chronic kidney disease, or unspecified chronic kidney disease; E78.00 Pure hypercholesterolemia, unspecified; I27.20 Pulmonary hypertension, unspecified; G47.30 Sleep apnea, unspecified; I87.2 Venous insufficiency (chronic) (peripheral); I65.23 Occlusion and stenosis of bilateral carotid arteries; I25.810 Atherosclerosis of coronary artery bypass graft(s) without angina pectoris; J44.9 Chronic obstructive pulmonary disease, unspecified; R60.0 Localized edema; K21.9 Gastro-esophageal reflux disease without esophagitis; F41.9 Anxiety disorder, unspecified; Z79.4 Long term (current) use of insulin; Z86.73 Personal history of transient ischemic attack (TIA), and cerebral infarction without residual deficits; Z79.01 Long term (current) use of anticoagulants; Z87.891 Personal history of nicotine dependence; X58.XXXA Exposure to other specified factors, initial encounter; Y93.89 Activity, other specified; Y92.89 Other specified places as the place of occurrence of the external cause; Y99.8 Other external cause status ==

== ENCOUNTER → 2019-03-14 | Outpatient (CLI) | payer OTHER, MEDICARE | LOC: HYPER 06:25 | DX: E11.622 Type 2 diabetes mellitus with other skin ulcer (principal); L97.821 Non-pressure chronic ulcer of other part of left lower leg limited to breakdown of skin; L98.411 Non-pressure chronic ulcer of buttock limited to breakdown of skin; L89.312 Pressure ulcer of right buttock, stage 2; E11.22 Type 2 diabetes mellitus with diabetic chronic kidney disease; I12.9 Hypertensive chronic kidney disease with stage 1 through stage 4 chronic kidney disease, or unspecified chronic kidney disease; N18.9 Chronic kidney disease, unspecified; I87.2 Venous insufficiency (chronic) (peripheral); I65.23 Occlusion and stenosis of bilateral carotid arteries; I25.810 Atherosclerosis of coronary artery bypass graft(s) without angina pectoris; S80.221A Blister (nonthermal), right knee, initial encounter; I27.20 Pulmonary hypertension, unspecified; K21.9 Gastro-esophageal reflux disease without esophagitis; G47.33 Obstructive sleep apnea (adult) (pediatric); R60.0 Localized edema; F41.9 Anxiety disorder, unspecified; Z87.891 Personal history of nicotine dependence; Z79.4 Long term (current) use of insulin; Z79.01 Long term (current) use of anticoagulants; Z86.73 Personal history of transient ischemic attack (TIA), and cerebral infarction without residual deficits; X58.XXXA Exposure to other specified factors, initial encounter; Y93.89 Activity, other specified; Y92.89 Other specified places as the place of occurrence of the external cause; Y99.8 Other external cause status ==

== ENCOUNTER 2019-04-11 16:52 | Inpatient (IN) | payer OTHER, MEDICARE ==
[~2019-04-11] VITALS: Ht 172.7 cm; Wt 98.1 kg
[2019-04-11 16:52] VITALS: BP 140/54
[2019-04-11 17:25] LABS: URINE BILIRUBIN NEGATIVE (Negative); URINE BLOOD NEGATIVE (Negative); URINE CLARITY CLEAR; URINE COLOR YELLOW; URINE GLUCOSE-RANDOM* NEGATIVE (Negative); URINE KETONES NEGATIVE (Negative); URINE LEUKOCYTES-REFLEX NEGATIVE (Negative); URINE NITRITE-REFLEX NEGATIVE (Negative); URINE PROTEIN (DIPSTICK) NEGATIVE (Negative); URINE UROBILINOGEN 0.2 E.U./dl (0.2-1.0)
[2019-04-11 17:39] LABS: BASOPHILS 0.4 % (0.0-2.0); EOSINOPHILS 1.7 % (0.0-3.0); HEMATOCRIT 30.9 % (42.0-52.0); HEMOGLOBIN 9.4 gm/dL (14.0-18.0); LYMPHOCYTES 17.6 % (24.0-44.0); MCH 26.5 pg (26.0-34.0); MCHC 30.5 g/dL (28.0-37.0); MCV 86.7 fL (80.0-100.0); MONOCYTES 8.1 % (1.0-8.0); POLYS 72.2 % (36.0-66.0); RBC 3.57 mil/uL (4.50-6.00); RDW 17.7 % (10.5-14.5); WBC 5.5 thou/uL (4.0-11.0)
[2019-04-11 17:44] LABS: CALCIUM 9.3 mg/dL (8.5-10.1); CREATININE 2.3 mg/dL (0.7-1.3); POTASSIUM 5.1 mmol/L (3.5-5.1)
[2019-04-11 17:50] LABS: BE(vivo) 13.1 mmol/L (-2 to +3); HCO3 42.4 mmol/L (22.0-26.0); PO2 158.1 mmHg (80.0-100.0); sO2 98.7 % (92.0-98.0)
[2019-04-11 17:51] LABS: PCO2 90.6 mmHg (35.0-45.0); pH 7.288 (7.360-7.450)
[2019-04-11 17:52] LABS: TROPONIN-I 0.1 ng/mL (<0.06)
[2019-04-11 18:05] LABS: PLATELET COUNT 96 thou/uL (150-400)
[2019-04-11] MEDS ORDERED: TORSEMIDE100 MG PO (19:11)
[2019-04-11] MEDS ORDERED: LEXAPRO 10 MG T10 M1 PO (19:13)
[2019-04-11] MEDS ORDERED: ASPIR 8181 MG PO (19:13)
[2019-04-11 19:59] LABS: BE(vivo) 14.7 mmol/L (-2 to +3); HCO3 44.5 mmol/L (22.0-26.0); PO2 144.9 mmHg (80.0-100.0); sO2 98.4 % (92.0-98.0)
[2019-04-11 20:00] LABS: PCO2 97.3 mmHg (35.0-45.0); pH 7.278 (7.360-7.450)
[2019-04-11 22:06] LABS: BE(vivo) 14.6 mmol/L (-2 to +3); PO2 98.1 mmHg (80.0-100.0); pH 7.388 (7.360-7.450); sO2 97.1 % (92.0-98.0)
[2019-04-11 22:07] LABS: PCO2 71.3 mmHg (35.0-45.0)
[2019-04-11 22:20] VITALS: BP 138/54
[2019-04-11 22:50] VITALS: BP 143/60
[2019-04-11 23:01] VITALS: BP 150/58
[2019-04-11 23:31] VITALS: BP 142/52
[2019-04-12] VITALS (34 sets, daily range): BP systolic 118–161; BP diastolic 40–65
[2019-04-12 04:46] LABS: BE(vivo) 13.4 mmol/L (-2 to +3); PO2 91.5 mmHg (80.0-100.0); pH 7.366 (7.360-7.450); sO2 96.4 % (92.0-98.0)
[2019-04-12 04:47] LABS: PCO2 73.2 mmHg (35.0-45.0)
[2019-04-12 06:10] LABS: ABSOLUTE NEUTROPHILS 5.9 thou/uL (1.4-8.2); BASOPHILS 0.3 % (0.0-2.0); EOSINOPHILS 0.4 % (0.0-3.0); HEMATOCRIT 31.8 % (42.0-52.0); HEMOGLOBIN 9.8 gm/dL (14.0-18.0); LYMPHOCYTES 9.2 % (24.0-44.0); MCH 26.5 pg (26.0-34.0); MCHC 30.9 g/dL (28.0-37.0); MCV 85.9 fL (80.0-100.0); MONOCYTES 2.9 % (1.0-8.0); POLYS 87.2 % (36.0-66.0); RBC 3.71 mil/uL (4.50-6.00); RDW 17.5 % (10.5-14.5); WBC 9.7 thou/uL (4.0-11.0)
--- NOTE | 2019-04-12 06:14 | NUR ---
PATIENT ARRIVED TO THE UNIT AT APPROXIMATELY 2300. PATIENT WAS PLACED ON BIPAP IN THE ED. PATIENT REMAINS ON BIPAP AND ABG LAB VALUES HAVE IMPROVED SINCE ARRIVING TO THE ED. ADMISSION COMPLETED BY HAN GRAYSON. PATIENT REMAINED STABLE THROUGHOUT THE NIGHT AND NO ACUTE EVENTS OCCURRED. HOURLY ROUNDING COMPLETED AND ASSESSMENTS CHARTED. PATIENT IS IMPROVING.
[2019-04-12 06:36] LABS: ALBUMIN 3.1 g/dL (3.4-5.0); CALCIUM 9.4 mg/dL (8.5-10.1); CREATININE 2.1 mg/dL (0.7-1.3); POTASSIUM 5.2 mmol/L (3.5-5.1); TOTAL BILIRUBIN 0.4 mg/dL (<0.1-1.0)
[2019-04-12 06:47] LABS: PLATELET ESTIMATE DECREASED
[2019-04-12 06:48] LABS: PLATELET COUNT 72 thou/uL (150-400)
--- NOTE | 2019-04-12 08:15 | EKG ---
[place] [address] [facility] [place] [address] ELECTROCARDIOGRAM REPORT Name: MORGAN ZAIDI RAMON Room #: 238-P ADM IN M.R.#: [id number] Admission: 04/11/19 Attend Phys: Jair Santos MD Discharge: Date of : 39 Report #: [id number] THIS REPORT FOR: //name// [facility] ED Test Date: 2019-04-11 Test Time: 17:27:42 Pat Name: MORGAN ZAIDI Department: Room: 238 Gender: M Past Due Accounts Clerk: [email or web address] : 1935 Requested By: Jovan Polk Order Number: [id number] MD: Andrew Interiano Measurements Intervals [place] Rate: 58 P: -51 ND: 352 QRS: 33 QRSD: 100 T: 183 QT: 425 QTc: 418 Interpretive Statements Probable atrial fibrillation Probable LVH with secondary repol abnrm Compared to ECG 12/10/2018 15:10:48 Atrial fibrillation has replaced sinus rhythm Electronically Signed On 04-12-2019 8:15:38 CDT by Andrew Interiano [email or web address] <ELECTRONICALLY SIGNED> By: Andrew Interiano MD, [facility] 04/12/19814 1727 172 Andrew Interiano MD, [facility] /EPI
--- NOTE | 2019-04-12 10:29 | 2DMMODE ---
[facility] [address] [place] [address] 2 D/M-MODE ECHOCARDIOGRAM Name: DYANMORGAN RAMON Room #: 238-P ADM IN M.R.#: [id number] Admission: 04/11/19 Attend Phys: Jair Santos MD Discharge: Date of : 39 Date of Service: 04/12/19 1029 Report #: [id number] THIS REPORT FOR: //name// APPROVED REPORT Study performed: 04/12/2019 09:42:53 EXAM: Comprehensive 2D, Doppler, and color-flow Echocardiogram Patient Location: ICU Room #: 238 Status: routine BSA: 2.07 HR: 67 bpm BP: 142/50 mmHg Rhythm: NSR Other Information Study Quality: Good Indications Congestive Heart Failure COPD Diabetes Dyspnea CAD Cardiomyopathy Hypertension/HDD 2D Dimensions RVDd: 53.42 mm IVSd: 13.34 (7-11mm) LVOT Diam: 23.15 (18-24mm) LVDd: 53.12 mm PWd: 13.27 (7-11mm) Ascending Ao: 37.04 (22-36mm) LVDs: 44.22 (25-40mm) Aortic Root: 36.25 mm IVC: 24.00 mm Volumes Left Atrial Volume (Systole) Single Plane 4CH: 170.22 mL Single Plane 2CH: 108.48 mL LA ESV Index: 71.00 mL/m2 Aortic Valve AoV Peak Allen.: 2.81 m/s AO Peak Gr.: 31.48 mmHg LVOT Max P.22 mmHg AO Mean Gr.: 17.98 mmHg LVOT Mean P.20 mmHg [facility] [address] [address] 2 D/M-MODE ECHOCARDIOGRAM Name: MORGAN ZAIDI Room #: 238-P [facility] IN .R.#: [id number] Admission: 04/11/19 Attend Phys: Jair Santos MD Discharge: Date of : 39 Date of Service: 04/12/19 1029 Report #: [id number] AO V2 Mean: 2.02 m/s LVOT Max V: 0.74 m/s AO V2 VTI: 79.07 cm LVOT Mean V: 0.51 m/s GILL (VTI): 1.05 cm2 LVOT V1 VTI: 19.75 cm GILL Vmax: 1.12 cm2 SV (LVOT): 83.05 mL Mitral Valve E/A Ratio: 1.2 MV Decel. Time: 180.04 ms MV E Max Allen.: 1.38 m/s MV A Allen.: 1.19 m/s MV PHT: 52.21 ms IVRT: 36.91 ms Pulmonary Valve PV Peak Allen.: 1.11 m/s PV Peak Gr.: 4.97 mmHg Pulmonary Vein P Vein S: 0.30 m/s P Vein A: 0.16 m/s P Vein D: 0.40 m/s P Vein A Dur.: 92.3 msec P Vein S/D Ratio: 0.75 Tricuspid Valve TR Peak Allen.: 3.91 m/s TR Peak Gr.: 61.04 mmHg PA Pressure: 71.00 mmHg Left Ventricle The left ventricle is normal size. There is global hypokinesis of the left ventricle. Mild concentric left ventricular hypertrophy. Left ventricular systolic function is mildly decreased. LVEF is 45%. Grade IV - fixed restrictive diastolic dysfunction. Right Ventricle Right ventricle is dilated. Right ventricle is hypokinetic. Atria Left atrium is dilated. Right atrium is dilated. Aortic Valve The aortic valve is normal in structure. Aortic valve is calcified. No aortic regurgitation is present. Moderate aortic stenosis.1.1cm2 Mitral Valve [facility] [address] [place] [address] 2 D/M-MODE ECHOCARDIOGRAM Name: MORGAN ZAIDI RAMON Room #: 238-P [facility] IN [facility].#: [id number] Admission: 04/11/19 Attend Phys: Jair Santos MD Discharge: Date of : 39 Date of Service: 04/12/19 1029 Report #: [id number] The mitral valve is normal in structure. Mild mitral regurgitation. No evidence of mitral valve stenosis. Tricuspid Valve The tricuspid valve is normal in structure. There is moderate tricuspid regurgitation. Estimated PAP 71 mmHg. There is severe pulmonary hypertension. Pulmonic Valve The pulmonary valve is normal in structure. Mild pulmonic regurgitation. Great Vessels The aortic root is normal in size. IVC is normal in size and collapses <50% with inspiration. Pericardium There is no pericardial effusion. <Conclusion> The left ventricle is normal size. Left ventricular systolic function is mildly decreased. LVEF is 45%. There is global hypokinesis of the left ventricle. Grade IV - fixed restrictive diastolic dysfunction. Right ventricle is dilated. Right ventricle is hypokinetic. Left atrium is dilated. The aortic valve is normal in structure. Aortic valve is calcified. Moderate aortic stenosis.1.1cm2 Mild mitral regurgitation. There is moderate tricuspid regurgitation. Estimated PAP 71 mmHg. There is severe pulmonary hypertension. The aortic root is normal in size. There is no pericardial effusion. <ELECTRONICALLY SIGNED> By: Ced Meyer MD, FACC 04/12/19 1029 1029 1029 Ced Meyer MD, FACC /INF
--- NOTE | 2019-04-12 18:45 | NUR ---
PT SWITCHING BETWEEN BIPAP AND NASAL CANNULA THROUGH OUT THE DAY. 30% ON BIPAP WHEN SLEEPING. 4L NC WHILE AWAKE. CARDIOLOGY AND PULMONARY CONSULTS COMPLETE. EKG AND ECHO DONE. MORNING INSULINS HELD DUE TO HYPOGLYCEMIA. SPOKE WITH DR. NARVAEZ WITH NOON ELEVATED BLOOD SUGAR. WILL CONITNUE CURRENT ORDERS. PATIENT IS NOW HYPERGYLCEMIC. EDUCATED ON FLUID RESTRICTION AND NEED FOR DIURESING. PATIENT TO STAY IN ICU OVER NOC PER DR. HEART. ORDER FOR ONETIME DOSE OF ATIVAN IF PATIENT BECOMES ANXIOUS ON BIPAP. FAMILY UPDATED THROUGH OUT THE DAY.
[2019-04-13] VITALS (17 sets, daily range): BP systolic 127–165; BP diastolic 38–116
--- NOTE | 2019-04-13 04:51 | NUR ---
PT DROWSY DURING THE NIGHT. ABLE TO FOLLOW COMMANDS. AFEBRILE. VSS. ON BIPAP DURING THE NIGHT, NO SIGNS OF DISTRESS WHILE AT REST. NO PAIN. URINE OUTPUT NOTED. NO COMPLAINS PRESENTLY. WILL CONTINUE TO MONITOR.
[2019-04-13 05:14] LABS: CALCIUM 8.9 mg/dL (8.5-10.1); CREATININE 2.4 mg/dL (0.7-1.3); MAGNESIUM 2.4 mg/dL (1.8-2.4)
[2019-04-13 05:20] LABS: POTASSIUM 5.9 mmol/L (3.5-5.1)
[2019-04-13 05:21] LABS: BE(vivo) 10.8 mmol/L (-2 to +3); PCO2 59.9 mmHg (35.0-45.0); PO2 100.7 mmHg (80.0-100.0); pH 7.409 (7.360-7.450); sO2 97.5 % (92.0-98.0)
[2019-04-13 05:36] LABS: HEMOGLOBIN 8.7 gm/dL (14.0-18.0); MCH 26.5 pg (26.0-34.0); MCHC 31.2 g/dL (28.0-37.0); RBC 3.29 mil/uL (4.50-6.00); RDW 17.4 % (10.5-14.5); WBC 4.4 thou/uL (4.0-11.0)
--- NOTE | 2019-04-13 07:37 | EKG ---
[address] [place] [address] ELECTROCARDIOGRAM REPORT Name: MORGAN ZAIDI RAMON Room #: 238-P ADM IN M.R.#: [id number] Admission: 04/11/19 Attend Phys: Jair Santos MD Discharge: Date of : 39 Report #: [id number] THIS REPORT FOR: //name// [facility] Test Date: 2019-04-12 Test Time: 09:22:38 Pat Name: MORGAN ZAIDI Department: Room: 238 P Gender: M Betting Clerk: Jj YOU : 1935 Requested By: Iris Duarte Order Number: [id number] MD: Andrew Interiano Measurements Intervals [place] Rate: 62 P: -57 HI: 309 QRS: 34 QRSD: 94 T: 194 QT: 425 QTc: 432 Interpretive Statements Atrial fibrillation Probable LVH with secondary repol abnrm Compared to ECG 04/11/2019 17:27:42 No significant change was found Electronically Signed On 04-13-2019 7:37:33 CDT by Andrew Interiano [email or web address] <ELECTRONICALLY SIGNED> By: Andrew Interiano MD, [facility] 1935 1 1 Andrew nIteriano MD, [facility] /EPI
--- NOTE | 2019-04-13 16:16 | NUR ---
ASSUMED CARE @ 0700 04/13/19, PT ASSESSMENTS AND VSS COMPLETE PER ICU PROTOCOL, PT ALERT AND ORIENTED X 4, PT FORGETFUL AND HARD OF HEARING, HEARING AIDS IN EARS AT THIS TIME, PT ABLE TO FOLLOW ALL COMMANDS TO HIS BEST ABILITY. PT SB - SR; 1 AVB ON THE MONITOR. PT ON 4L OF 02 SATS FINE, BIPAP PRN, SEE SETTINGS IN PROCESS INTERVENTION. PT ON A HEART-HEALTHY CARB CONTROLLED DIET, ABLE TO TOLERATE FINE. PT ON A 1500ML FLUID RESTRICTION, PT CONSTANTLY ASKING FOR WATER, PT AND SPOUSE EDUCATED ON REASONS WHY THIS RESTRICTION IS IMPORTANT. FORBES IN PLACE, GOP NOTED. TRANSFER ORDERS TO -TELE GOTTEN FROM DR HEART. PLAN OF CARE- CONTINUE TO MONITOR.
--- NOTE | 2019-04-13 17:02 | NUR ---
INITIAL ASSESSMENT: SW reviewed chart and spoke with nursing and attending physician. Pt was admitted from home due to acute on chronic respiratory failure. Pt with hx of COPD/CHF. Pt is currently on IV lasix and IV steroids. SW attempted to met with pt and spouse at bedside. Both were sleeping soundly during time of visit. Per chart, pt lives at home with his . Prior to admission, pt was using a rollator walker. Pt is normally on 3-4L of O2. Home O2 is provided by [facility]. Pt also has a trilogy at home. Pt has used [facility] in the past and has been to [facility] and in the past. Pt's PCP is Dr. Aneesh Whittaker. Therapies ordered to evaluate pt for discharge needs. No weekend discharge planned. OUSMANE is following to assist as needed with discharge planning.
[2019-04-14 04:01] VITALS: BP 96/76
--- NOTE | 2019-04-14 07:19 | NUR ---
PATIENT IS ALERT TO SELF AND PLACE. PATIENT IS EKWOK. PATIENT IS INCONTIENT. PATIENT HAS A FORBES. PATIENT IS ON FLUID RESTRICTION 1300ML. PATIENT IS RESTING COMFORTABLY IN BED. PATIENT DENIES PAIN. [facility]
[2019-04-14 07:53] VITALS: BP 123/56
[2019-04-14 11:10] VITALS: BP 114/96
[2019-04-14 15:38] VITALS: BP 116/70
--- NOTE | 2019-04-14 18:43 | NUR ---
PATIENT HAS RESTED IN ROOM THROUGH THE DAY. HAD A BATH THIS AM. BED CHANGED ALSO. HE WAS NOTED YELLING OUT TO AND STAFF " I CANNOT BREATH" OVER AND OVER. PRN XANAX OFFERED AND IT WAS EFFECTIVE PATIENT WAS CALM MOST OF THE DAY. GOOD APPETITE. ATE 100% OF MOST MEALS. WILL CONT WITH PLAN OF CARE.
[2019-04-14 20:21] VITALS: BP 114/47
--- NOTE | 2019-04-15 03:25 | NUR ---
PATIENT IS ALERT TO PERSON AND PLACE. PATIENTS LBM WAS THE 10TH. ANTONIO HAS A FORBES. PATIENT IS 1300ML FLUID RESTRICTION. PATIENT IS 1ST DEGREE AVB ON TELE. PATIENT IS 4L NC. 2-4L IS BASE LINE PATIENT IS ON BIPAP HS. PATIENTS IV INFLITRATED TO LT ARM AT START OF SHIFT. COMPRESSING, ICE AND ELEVATION APPLIED. PATIENT IS Q2TURN BUT REFUSES TURNS MOST OF THE TIME. PATIENT DENIES PAIN. PATIENT IS RESTING COMFORTABLY IN BED. WCM. PATIENT IS PROGRESSING TO GOALS. PLAN IS TO REMOVE FLUIDS.
[2019-04-15 05:10] VITALS: BP 134/55
[2019-04-15 07:04] VITALS: BP 129/53
[2019-04-15 11:12] VITALS: BP 120/53
--- NOTE | 2019-04-15 16:00 | NUR ---
PT ALERT AND ORIENTED TIMES THREE. VSS, BIPAP/O2 100%. PT VERY ANXIOUS THROUGHOUT THE SHIFT STATING HE "CANT BREATH" ASKING TO TAKE THE BIPAP ON AND OFF. PRN ANXIETY MEDICATIONS GIVEN WITH LITTLE RELEIF. PT DENIES PAIN. AT BEDSIDE. PT SLOWLY PROGRESSING TOWARDS POC GOALS.
[2019-04-15 16:25] VITALS: BP 135/79
[2019-04-15 20:44] VITALS: BP 141/58
[2019-04-16 04:15] VITALS: BP 142/58
--- NOTE | 2019-04-16 05:27 | NUR ---
ASSUMED CARE AT 1900, ASSESSMENTS COMPLETED Q4. PT SLEEPING MUCH OF SHIFT, EASILY AROUSEABLE, SLIGHTLY RESISTANT TO TURNS/CARES AND BECOMING ANXIOUS WHEN LAID DOWN OR TURNED. DURING 0400 ASSESSMENT, PT AWAKE AND VERY ANXIOUS, CONCERNED ABOUT WHERE HIS WAS, BELIEVING SHE HAD GONE MISSING; TRIED TO REASSURE/REORIENT, BUT PT CONTINUED TO BE ANXIOUS AND CONCERNED. COMPLAINED HE COULD NOT BREATHE DESPITE BIPAP BEING IN PLACE AND RECEIVING RT TREATMENT, HE THEN PULLED HIS MASK OFF. PLACED ON 4L O2 VIA NC, GAVE ANTI-ANXIETY AND AM MEDS AND A SMALL CUP OF WATER; PT HAD NORMAL RESPIRATORY EFFORT BUT STILL COMPLAINED HE COULDN'T BREATHE AND WANTED MASK BACK ON. PLACED BACK ON BIPAP. PT NOTED TO HAVE 1-2+ NONPITTING EDEMA IN BILAT ARMS, WITH MODERATE AMOUNT OF SEROSANGINOUS WEEPING; PT FOUND TO HAVE A SMALL POPPED BLISTER AT RIGHT, INNER ELBOW WHICH WAS SOURCE OF WEEPING ON RIGHT ARM. 3+ PITTING EDEMA BLE, LEGS ELEVATED ON PILLOWS. TURNING REGULARLY OVERNIGHT. DENIES PAIN OR NAUSEA. NO OTHER CONCERNS, WILL CONTINUE TO MONITOR.
[2019-04-16 06:00] LABS: CALCIUM 8.9 mg/dL (8.5-10.1); CREATININE 2.9 mg/dL (0.7-1.3); POTASSIUM 5.7 mmol/L (3.5-5.1)
[2019-04-16 06:50] LABS: HEMATOCRIT 27.4 % (42.0-52.0); HEMOGLOBIN 8.6 gm/dL (14.0-18.0); MCH 26.5 pg (26.0-34.0); MCHC 31.3 g/dL (28.0-37.0); MCV 84.8 fL (80.0-100.0); RBC 3.24 mil/uL (4.50-6.00); RDW 17.7 % (10.5-14.5); WBC 4.1 thou/uL (4.0-11.0)
[2019-04-16 07:22] VITALS: BP 139/52
[2019-04-16 11:22] VITALS: BP 142/49
--- NOTE | 2019-04-16 15:39 | NUR ---
ASSUMED CARE OF PT AT 0700. PT AOX1-2 VISIBLY ANXIOUS, COMPLAINING OF SOA BUT MAINTAINS SPO2 > 96%, ATTRIBUTED TO ANXIETY. PLACED ON BIPAP WHEN REQUESTED. RENAL SERVICES CONSULTED FOR WORSENING KIDNEY FUNCTION. RENAL US COMPLETE ORDERED. LASIX STARTED. UP W/ MAX ASSIST TO BSC. COARSE LUNG SOUNDS. ON 5L NC. SLOW PROGRESS TOWARD POC GOALS. WILL CONT TO MONITOR.
--- NOTE | 2019-04-16 15:54 | NUR ---
SW reviewed chart and spoke with nursing and attending physician. Pt transferred to 3W from ICU. Pt is not progressing towards goals for discharge. Pt may be a candidate for palliative care. SW is following to assist as needed with discharge planning.
[2019-04-16 18:34] VITALS: BP 146/52
[2019-04-16 20:15] VITALS: BP 144/48
--- NOTE | 2019-04-16 22:58 | NUR ---
ASSUMED CARE AT 1900, ASSESSMENT COMPLETED PER PROTOCOL. PT DENIES ANY PAIN OR NAUSEA. LETHARGIC THIS SHIFT, AROUSEABLE BUT DROWSY; INTIALLY WEARING 5L O2 NC BUT SWITCHED TO BIPAP ABOUT 2029. 3+ BLE PITTING EDEMA; TRACE EDEMA BILAT ARMS, WHICH ARE WEEPY AND MOTTLED IN COLOR. REGULAR TURNS, KEEPING LEGS ELEVATED ON PILLOWS. HR HAS BEEN 50-60, WITH FIRST DEGREE BLOCK, FREQ PAC'S, AND AROUND 2300 SLIGHTLY MORE IRREGULAR THOUGH HE IS IN/OUT OF AFIB; WILL MONITOR TELE CLOSELY. NO OTHER CONCERNS, WILL CONTINUE TO MONITOR.
[2019-04-17 04:45] VITALS: BP 141/52
[2019-04-17 05:01] LABS: HEMATOCRIT 27.4 % (42.0-52.0); HEMOGLOBIN 8.5 gm/dL (14.0-18.0); MCH 26.2 pg (26.0-34.0); MCHC 30.9 g/dL (28.0-37.0); MCV 84.8 fL (80.0-100.0); RBC 3.23 mil/uL (4.50-6.00); RDW 17.2 % (10.5-14.5); WBC 4.1 thou/uL (4.0-11.0)
[2019-04-17 05:27] LABS: ALBUMIN 2.8 g/dL (3.4-5.0); CALCIUM 8.7 mg/dL (8.5-10.1)
[2019-04-17 07:47] VITALS: BP 147/96
[2019-04-17 09:03] LABS: PROT/CREAT RATIO 0.3; URINE PROTEIN-RANDOM* 15.9 mg/dL (<11.9)
[2019-04-17 11:24] VITALS: BP 145/49
--- NOTE | 2019-04-17 15:20 | NUR ---
SW reviewed chart and spoke with nursing and attending physician. Pt was moved closer to the nurses station. Palliative care consult ordered. Pt's code status changed to DNR today. OUSMANE is following to assist as needed with discharge planning.
--- NOTE | 2019-04-17 18:34 | NUR ---
ASSUMED PATIENT CARE AT 0700. ALERT TO SELF. ANXIOUS WOULD NOT BREATHING. PATIENT ON BIPAP MOST TIMES TODAY. GENERLIZED EDEMA AND BUL WEEPING. TRY Q2H TURN PATIENT BUT REFUSED. NOT TOWARDS POC GOALS.
[2019-04-17 20:09] VITALS: BP 159/49
[2019-04-18 03:20] VITALS: BP 120/36
--- NOTE | 2019-04-18 05:58 | NUR ---
ASSUMED CARE AT 1900, ASSESSMENTS COMPLETED Q4. PT VERY ANXIOUS OVERNIGHT, STATING "I CAN'T BREATHE, HELP ME" BUT HIS RESPIRATORY EFFORT IS NORMAL AND HIS O2 SATS ARE 99-100% ON BOTH BIPAP OR WHEN SWITCHED TO 5L NC. GIVEN XANAX OVERNIGHT WHICH HELPED PT SLEEP. BILATERAL ARMS HEAVILY WEEPY R/T EDEMA; BILATERAL LEGS STARTING TO FORM SMALL BLISTERS R/T EDEMA/3RD SPACING, LEFT LEG HAS ONE LARGE BLISTER AND RIGHT LEG HAS SEVERAL SMALL BLISTERS. FORBES DRAINING WELL OVERNIGHT. HR IRREGULAR AND LYN IN THE 50'S. NO OTHER CONCERNS, WILL CONTINUE TO MONITOR.
[2019-04-18 06:35] LABS: ALBUMIN 2.7 g/dL (3.4-5.0); CALCIUM 8.9 mg/dL (8.5-10.1); CREATININE 2.9 mg/dL (0.7-1.3)
[2019-04-18 06:39] LABS: POTASSIUM 5.7 mmol/L (3.5-5.1)
[2019-04-18 07:31] VITALS: BP 132/39
--- NOTE | 2019-04-18 08:39 | NUR ---
I have reviewed the documentation by CHAO BORJA from T-1 to 04/18/19 and I concur with it. Amy CAMILO
[2019-04-18 10:53] LABS: BE(vivo) 7.5 mmol/L (-2 to +3); HCO3 34.2 mmol/L (22.0-26.0); PCO2 60.9 mmHg (35.0-45.0); PO2 97.5 mmHg (80.0-100.0); pH 7.367 (7.360-7.450)
--- NOTE | 2019-04-18 11:11 | HC ---
[facility] [place] [address] CONSULTATION Name: DYANMORGAN BAUTISTA RAMON Room #: 352-P ADM IN M.R.#: [id number] Admission: 04/11/19 Attend Phys: Jair Santos MD Discharge: Date of : 39 Report #: [id number] THIS REPORT FOR: //name// CC: Jair Whittaker DATE OF SERVICE: 04/16/2019 NEPHROLOGY CONSULTATION. REASON FOR CONSULTATION: Chronic kidney disease. HISTORY OF PRESENT ILLNESS: The patient is extremely well known to our service, followed for years in the office by Dr. Helm and followed by her service intermittently for multiple hospitalizations. He has very severe oxygen dependent COPD, using CPAP at night and during the day at home on chronic oxygen therapy as well. He has coronary artery disease, previous coronary bypass graft remotely with ejection fraction that has run between 35% and 45% on various echocardiograms. The patient was admitted with confusion, hypoxemia, exacerbation of chronic obstructive pulmonary disease and heart failure. Attempts at diuresis have not been particularly successful. His creatinine has risen from a level of about 2.1 at the time of admission, which is substantially lower than his usual chronic creatinine level up to 2.9 today, which is exactly what his last office creatinine level from 2 months ago was. PAST MEDICAL HISTORY: Also includes a history of diabetes mellitus, hyperlipidemia, hypertension. He has had frequent episodes of hyperkalemia and previous TIA. He has also had hip surgery and cataract surgery in the past. SOCIAL HISTORY: He is an ex-smoker and he quit; and lives at home with his . FAMILY HISTORY: Positive for diabetes and hypertension. REVIEW OF SYSTEMS: Very difficult to take, the patient is extremely anxious. He is extremely hard of hearing. He does not seem to be particularly lucid at the current time. PHYSICAL EXAMINATION: GENERAL: This is a chronically ill-appearing patient seen in his hospital bed, extremely anxious and nervous. SKIN: Otherwise, unremarkable. SKELETAL: He is somewhat overweight. HEENT: Hearing aids are in place. Mucous membranes are moist. [facility] [address] [place] [address] CONSULTATION Name: DYANMORGAN RAMON Room #: 352-P ADM IN M.R.#: [id number] Admission: 04/11/19 Attend Phys: Jair Santos MD Discharge: Date of : 39 Report #: [id number] NECK: Little bit stiff. No carotid bruits can be heard. The breathing is very noisy. CHEST: Shows rhonchi and crackles. HEART: Regular. ABDOMEN: Soft and nontender. EXTREMITIES: Show 1-2+ peripheral edema, which I also believe is rather chronic. NEUROLOGIC: Shows him to be extremely anxious, very hard of hearing, difficult to communicate with. He moves all extremities well. LABORATORY DATA: Creatinine 2.9, BUN is 124, but he is on high dose steroids. Potassium is 5.7. ASSESSMENT: 1. Chronic kidney disease. He has a bad heart, bad lungs, chronic kidney disease. Obviously, prognosis is very poor here and he certainly would not make a very good dialysis patient and his potassium is a little bit up. We will treat that, also give him some IV Lasix in an effort to try to get some of his excessive fluid out of his system to see if that helps. Certainly would recommend a no code blue and comfort measures in this unfortunate gentleman. 2. Severe oxygen dependent chronic obstructive pulmonary disease. 3. Sleep apnea. 4. Cardiomyopathy. 5. History of coronary artery bypass. 6. Extreme anxiety. <ELECTRONICALLY SIGNED> By: Ced Montoya MD 04/18/19 1111 1058 2044 Ced Montoya MD /nt
[2019-04-18 11:24] VITALS: BP 126/51
--- NOTE | 2019-04-18 12:07 | NUR ---
Received consult for SNF placement and hospice informational visit. SW discussed with attending physician. Pt's family is willing to meet with hospice. Family is wanting pt to go to a SNF to see if pt will improve. SW left voice message for pt's , Emily. No family present at bedside during time of SW visit. Awaiting call back at this time. SW is following to assist as needed with discharge planning.
--- NOTE | 2019-04-18 14:03 | NUR ---
Length of stay: noted pt with hospice/comfort care recommendations. Will defer nutrition assessment unless consulted.
[2019-04-18 15:23] VITALS: BP 132/51
[2019-04-18 19:17] VITALS: BP 146/45
--- NOTE | 2019-04-18 20:30 | NUR ---
PATIENT ALERT AND ANXIOUS WITH SPOUSE AT BEDSIDE STATING CAN'T BREATHE. PULLED PATIENT UP IN BED AND COULD BREATH BETTER. PHYSICAL THERAPY GOT PATIENT UP TO CHAIR AFTER BREAKFAST AND PATIENT IN CHAIR THROUGHOUT DAY. PATIENT ON NC 5.0L ALL DAY EXCEPT FOR SEVERAL HOURS IN AFTERNOON WHEN HE WAS ON BIPAP. SPOUSE AT BEDSIDE MOST OF THE DAY BUT NEEDED TO LEAVE TO CARE FOR FAMILY MEMBER. DR. NARVAEZ AT BEDSIDE THIS AM AND DESCRIBED IN DETAIL PATIENTS MEDICAL STATUS AND POSSIBLE PLANS FOR CARE WITH PATIENT AND SPOUSE.
[2019-04-19 03:45] VITALS: BP 138/52
--- NOTE | 2019-04-19 05:58 | NUR ---
PATIENT IS CONFUSED AND ANXIOUS. PATIENT IS 4-5L NC AND BIPAP HS/PRN. PATIENT HAS WEEPING EDEMA TO BILATERAL ARM. PATIENT HAS A FORBES. PATIENTS LBM WAS THE 14TH. PATIENT IS UP MAX ASSIST WITH ENCOURAGEMENT. PATIENT HAS REDDNESS TO COCCYX BARRIER CREAM APPLIED. PATIENT IS RESTING COMFORTABLY IN BED. WCM. PATIENT DENIES PAIN.
[2019-04-19 07:45] VITALS: BP 149/50
[2019-04-19 09:56] LABS: HEMATOCRIT 29.5 % (42.0-52.0); HEMOGLOBIN 9.3 gm/dL (14.0-18.0); MCH 26.5 pg (26.0-34.0); MCHC 31.5 g/dL (28.0-37.0); RBC 3.51 mil/uL (4.50-6.00); RDW 17.2 % (10.5-14.5); WBC 5.4 thou/uL (4.0-11.0)
[2019-04-19 10:11] LABS: ALBUMIN 2.6 g/dL (3.4-5.0); CALCIUM 8.8 mg/dL (8.5-10.1); CREATININE 2.7 mg/dL (0.7-1.3); PHOSPHORUS 5.4 mg/dL (2.5-4.9); POTASSIUM 4.7 mmol/L (3.5-5.1)
[2019-04-19 11:35] VITALS: BP 143/86
--- NOTE | 2019-04-19 14:05 | NUR ---
SW reviewed chart and spoke with nursing and attending physician. Pt is slowly progressing towards goals for discharge. SW met with pt and at bedside to discuss discharge plan. OUSMANE explained that pt does not qualify for 5N at this time. SW discussed SNF placement and provided list of SNFs for review. SW also discussed hospice and having a hospice info visit. Pt's is agreeable, as their children would like to be present during info visit. Pt's to discuss SNF options with family and have choices for SW later today or tomorrow. OUSMANE faxed clinical info to Hospice and notified regional transfer liaison of new referral. Hospice to contact pt's to arrange info visit. SW updated attending physician. OUSMANE is following to assist as needed with discharge planning.
[2019-04-19 15:54] VITALS: BP 145/45
--- NOTE | 2019-04-19 16:40 | NUR ---
PT is A&O X2 ( person and place), and pt can follow commands, but pt is anxiety sometimes, pt is on BIPAP O2 35% at most of time to keep o2sat at 94-99%, pt's vs are stable at this time, pt needs help change position and meals, pt had medication for anxiety about 1400pm, pt is sleeping with BIPAP now.
[2019-04-19 19:50] VITALS: BP 130/45
--- NOTE | 2019-04-19 20:03 | NUR ---
RN had called Dr to report pt's abnormal Lab results and pt has incresed anxiety, new order has received,
--- NOTE | 2019-04-20 02:47 | NUR ---
PATIENT IS ALERT TO SELF. PATIENTS LUNGS HAVE IMPROVED. PATIENT O2 STATS HIGH 90S ON BIPAP AND NC. PATIENTS LBM WAS THE 14TH. PATIENT IS Q2TURN. PATIENT IS UP TIMES2 DEREK PIVIOT. PATIENT DENIES PAIN. PATIENT IS PENDING REHAB OR HOSPICE. PATIENT IS RESTING COMFORTABLY. PATIENT IS RECIVEING LASIX. EDMEA IS IMPROVING SLOWLY. PATIENT IS PROGRESSING TO GOALS.
[2019-04-20 05:46] LABS: ALBUMIN 2.7 g/dL (3.4-5.0); CALCIUM 8.9 mg/dL (8.5-10.1); CREATININE 2.9 mg/dL (0.7-1.3); PHOSPHORUS 5.9 mg/dL (2.5-4.9); POTASSIUM 5.1 mmol/L (3.5-5.1)
[2019-04-20 05:58] LABS: HEMATOCRIT 30.5 % (42.0-52.0); HEMOGLOBIN 9.5 gm/dL (14.0-18.0); MCH 26.6 pg (26.0-34.0); MCHC 31.2 g/dL (28.0-37.0); MCV 85.2 fL (80.0-100.0); RBC 3.58 mil/uL (4.50-6.00); RDW 17.7 % (10.5-14.5); WBC 8.9 thou/uL (4.0-11.0)
[2019-04-20 06:16] VITALS: BP 149/52
[2019-04-20 07:49] VITALS: BP 129/52
[2019-04-20 11:47] VITALS: BP 133/50
--- NOTE | 2019-04-20 13:57 | NUR ---
[facility] SOMEWHAT COOPERATIVE, HOWEVER PT IS ONLY ORIENTED TO SELF, UNABLE TO REMEMBER/RECOGNIZE EVENTS. PT'S IS DPOA, IS IN ROOM WITH PT. PT'S FAMILY HAS DECIDED ON HOSPICE, WAITING ON PAPERWORK FOR PLACEMENT. PT IS CURRENTLY RESTING COMFORTABLY IN ROOM, EDUCATION WAS PROVIDED. PLAN OF CARE IS TO DISCHARGE PT TO HOSPICE.
[2019-04-20 15:53] VITALS: BP 122/47
--- NOTE | 2019-04-20 16:04 | NUR ---
OUSMANE reviewed chart and spoke with nursing and attending physician. [facility] did meet with pt's family at 1030 this morning. SW followed up with pt's to discuss discharge plan. Pt's states that family is agreeable with pt going to [facility]. OUSMANE spoke with Bertha at [facility]. SW received call back from Ita, stating that she only did an info visit and did not do an official hospice house eval. orthopaedic doctor, Loree, came and states pt is appropriate for admission to the hospice house. Outside the Hospital DNR form signed by pt's and physician. [facility] is ordering a bipap and they will not have that in until tomorrow. Anticipate discharge to [facility] tomorrow, 04/21. OUSMANE updated pt's at bedside, pt's nurse and attending physician. OUSMANE spoke with LATRICE at [facility], who states they will contact pt's nurse tomorrow when bipap has been delivered. Ambulance transportation will be arranged at that time. [facility] ambulance form placed on pt's chart. Will need to be faxed and then call to schedule ambulance. Final discharge orders/summary will need to be faxed to [facility] when available. SW is available to assist should needs arise. [facility]-- [facility]--
[2019-04-20 19:40] VITALS: BP 135/99
--- NOTE | 2019-04-21 02:21 | NUR ---
patient is alert to self. patient is anxious. patient is q2turn. patient is max assist piviot transfer. patient is a fib on tele. patient is 1500ml fluid restriction. patient is achs accuchecks. blood sugar has improved. patients lbm was the 14th. patient is on bipap hs and prn. patient is pending hospice house today. patient denies pain. patient is resting comfortably in bed. wcm. patient is progressing to goals
[2019-04-21 03:56] VITALS: BP 134/47
[2019-04-21 07:23] VITALS: BP 128/54
[2019-04-21 08:14] VITALS: BP 128/54
[2019-04-21] MEDS ORDERED: LANTUS100 UNIT/M SUBQ (11:32)
[2019-04-21] MEDS ORDERED: ALPRAZOLAM 0.50.5 MG PO (11:32)
--- NOTE | 2019-04-21 13:01 | NUR ---
ASSUMED PATIENT CARE AT 0700. AWAKE. BIPAP ON MOST TIMES. AT BED SIDE. WILL DC TO HOSPICE SOON.
--- NOTE | 2019-04-24 09:44 | HC ---
[facility] [place] [address] CONSULTATION Name: MORGAN ZAIDI RAMON Room #: 352-P [facility] [place].#: [id number] Admission: 04/11/19 Attend Phys: Jair Santos MD Discharge: 04/21/19 Date of : 39 Report #: [id number] THIS REPORT FOR: //name// CC: Jair Santos Aneeshpranay Whittaker DATE OF SERVICE: 04/18/2019 WOUND CARE CONSULTATION PERSONAL PHYSICIAN: Jair Santos MD CHIEF COMPLAINT: Left leg blister. HISTORY OF PRESENT ILLNESS: This is an 83-year-old white male with a history of coronary artery disease and severe COPD, who has currently been hospitalized for altered mental status, yesterday was noted to have a hematoma on his left leg of unknown etiology. The patient has been seriously ill over the past several days and is currently now on BiPAP for congestive heart failure. The patient himself was unable to give any history due to the BiPAP. There is no family in the room at this time. Nursing staff have no idea about the etiology of the hematoma. No other further information is able to be obtained. PAST MEDICAL HISTORY: Significant for COPD, oxygen dependent; congestive heart failure; diabetes mellitus; chronic lower extremity edema consistent with venous insufficiency. CURRENT MEDICATIONS: Multiple, I reviewed the patient's medication list. DRUG ALLERGIES: PENICILLIN. SOCIAL HISTORY: The patient quit smoking approximately a year ago. Lives with his . FAMILY HISTORY: Not pertinent to current medical condition. REVIEW OF SYSTEMS: Unobtainable because the patient is currently on BiPAP and sedated. PHYSICAL EXAMINATION: VITAL SIGNS: Temperature 37, pulse 68, respirations 24, BP 132/51, O2 saturation 98% on 5 liters by nasal canula and via BiPAP. GENERAL: This is a sedated white male who is in [id number] respiratory distress, on BiPAP. HEENT: Normocephalic, atraumatic. Mucous membranes are dry. Pupils are round. Sclerae white. [address] [address] CONSULTATION Name: MORGAN ZAIDI RAMON Room #: 352-P [facility] IN [place]#: [id number] Admission: 04/11/19 Attend Phys: Jair Santos MD Discharge: 04/21/19 Date of : 39 Report #: [id number] NECK: Supple with slight JVD. LUNGS: Diminished breath sounds heard throughout with wheezes heard throughout. HEART: Regular. ABDOMEN: Obese, soft, nontender. EXTREMITIES: The patient has 3+ edema, bilateral lower extremities. On the left lateral lower extremity just proximal to the lateral malleolus is a hematoma, which is intact. The patient's skin is very fragile. There are no signs of erythema, warmth or tenderness. No other associated ulcerations are noted. Bilateral heels are intact. Distal pulses are 1+. NEUROLOGIC: Cranial nerves 2-12 are grossly intact. Motor and sensory grossly intact. SKIN: Evaluation of sacrococcygeal region reveals no signs of any open ulcerations. There is what appears to be an old scar on the right gluteal region, but once again no open ulcerations are noted. LABORATORY VALUES: White count 4.1, hemoglobin 8.5, albumin 2.7. IMPRESSION: 1. Hematoma to the left lateral lower extremity of unknown etiology. 2. Chronic respiratory failure, currently on BiPAP. 3. Bilateral lower extremity edema consistent with venous insufficiency. 4. Protein-calorie malnutrition - severe with an albumin 2.7. 5. Generalized debility. PLAN: At this time, we will watch the hematoma, leave open to air. If the hematoma starts to drain, then we will place dressings over it at that time. We will place Kerlix and Coleman on bilateral lower extremities with a concern for control of edema. We will have the patient elevate his legs as much as possible. We will put extra protein supplementation for healing. At this point in time, the patient is not a candidate for physical and occupational therapy. We will continue all his other current medications and continue to follow the patient while he is here. <ELECTRONICALLY SIGNED> By: Jose Kellogg MD 04/24/19 [id number] Jose Kellogg MD /nt
== END 2019-04-21 13:40 | disposition hospice, home (50) | DRG 291 ==
LOC: ER 16:52 → ICU 18:06 → EROBS 18:06 → ICU 22:31 → 3W 04-13 18:25
PROVIDERS: Emergency Medicine; Internal Medicine; Internal Medicine Cardiovascular Disease; Internal Medicine Nephrology; Internal Medicine Pulmonary Disease; Pediatrics; ADMIT Internal Medicine
PROC: 5A09357 Assistance with Respiratory Ventilation, Less than 24 Consecutive Hours, Continuous Positive Airway Pressure (ICD-10-PCS; principal; 2019-04-11)
PROC: 5A09357 Assistance with Respiratory Ventilation, Less than 24 Consecutive Hours, Continuous Positive Airway Pressure (ICD-10-PCS; 2019-04-12)
PROC: 5A09357 Assistance with Respiratory Ventilation, Less than 24 Consecutive Hours, Continuous Positive Airway Pressure (ICD-10-PCS; 2019-04-13)
PROC: 5A09357 Assistance with Respiratory Ventilation, Less than 24 Consecutive Hours, Continuous Positive Airway Pressure (ICD-10-PCS; 2019-04-14)
PROC: 5A09357 Assistance with Respiratory Ventilation, Less than 24 Consecutive Hours, Continuous Positive Airway Pressure (ICD-10-PCS; 2019-04-15)
PROC: 5A09357 Assistance with Respiratory Ventilation, Less than 24 Consecutive Hours, Continuous Positive Airway Pressure (ICD-10-PCS; 2019-04-16)
PROC: 5A09357 Assistance with Respiratory Ventilation, Less than 24 Consecutive Hours, Continuous Positive Airway Pressure (ICD-10-PCS; 2019-04-17)
PROC: 5A09357 Assistance with Respiratory Ventilation, Less than 24 Consecutive Hours, Continuous Positive Airway Pressure (ICD-10-PCS; 2019-04-18)
DX: I13.0 Hypertensive heart and chronic kidney disease with heart failure and stage 1 through stage 4 chronic kidney disease, or unspecified chronic kidney disease (principal); J96.22 Acute and chronic respiratory failure with hypercapnia; G92 Toxic encephalopathy; I50.43 Acute on chronic combined systolic (congestive) and diastolic (congestive) heart failure; J96.21 Acute and chronic respiratory failure with hypoxia; J91.8 Pleural effusion in other conditions classified elsewhere; E87.2 Acidosis; I38 Endocarditis, valve unspecified; N17.9 Acute kidney failure, unspecified; J44.1 Chronic obstructive pulmonary disease with (acute) exacerbation; E44.0 Moderate protein-calorie malnutrition; I42.9 Cardiomyopathy, unspecified; I25.10 Atherosclerotic heart disease of native coronary artery without angina pectoris; S80.12XA Contusion of left lower leg, initial encounter; I87.2 Venous insufficiency (chronic) (peripheral); E78.5 Hyperlipidemia, unspecified; N18.3 Chronic kidney disease, stage 3 (moderate); E03.9 Hypothyroidism, unspecified; G47.33 Obstructive sleep apnea (adult) (pediatric); I48.2 Chronic atrial fibrillation; F41.1 Generalized anxiety disorder; I35.0 Nonrheumatic aortic (valve) stenosis; I27.20 Pulmonary hypertension, unspecified; I34.0 Nonrheumatic mitral (valve) insufficiency; E87.5 Hyperkalemia; D63.8 Anemia in other chronic diseases classified elsewhere; R41.0 Disorientation, unspecified; E11.22 Type 2 diabetes mellitus with diabetic chronic kidney disease; F03.90 Unspecified dementia, unspecified severity, without behavioral disturbance, psychotic disturbance, mood disturbance, and anxiety; S80.822A Blister (nonthermal), left lower leg, initial encounter; X58.XXXA Exposure to other specified factors, initial encounter; Y93.89 Activity, other specified; Y92.89 Other specified places as the place of occurrence of the external cause; Y99.8 Other external cause status; Z68.32 Body mass index [BMI] 32.0-32.9, adult; Z66 Do not resuscitate; Z87.81 Personal history of (healed) traumatic fracture; Z79.82 Long term (current) use of aspirin; Z79.899 Other long term (current) drug therapy; Z95.1 Presence of aortocoronary bypass graft; I25.2 Old myocardial infarction; Z88.0 Allergy status to penicillin; Z87.891 Personal history of nicotine dependence; Z83.3 Family history of diabetes mellitus; Z82.49 Family history of ischemic heart disease and other diseases of the circulatory system; Z99.81 Dependence on supplemental oxygen; Z51.5 Encounter for palliative care
CPT/HCPCS: 10078; 10879